=== PATIENT | female | born 1945 | race Caucasian/White ===

== ENCOUNTER 2019-02-10 01:13 | Inpatient (IN) | payer MEDICARE, MEDICAID ==
[~2019-02-10] VITALS: Ht 157.5 cm; Wt 63.5 kg
[2019-02-10] VITALS (9 sets, daily range): BP systolic 102–141; BP diastolic 48–74
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
--- NOTE | 2019-02-10 02:15 | NUR ---
ED Nurse Note: MANY ATTEMPTS MADE FOR PT IV LINE AND LABS, UN-SUCCESSFUL DUE TO CONTRACTED AND EX-IV DRUG USER PER PT, DEBBIE CHARGE NURSE ATTEMPTED UN-SUCCESSFULLY ALSO, IS AWARE AND WILL START CENTRAL LINE, ALSO AWARE OF LABS NOT DONE YET, PT IN BED RESTING QUIETLY, PT IS CRYING INTERMITTENTLY, WILL CONTINUE TO CLOSELY MONITOR.
[2019-02-10] MEDS ORDERED: oxyCODONE HCL/Acetaminophen 5/325mg ORAL ONE (02:45)
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
--- NOTE | 2019-02-10 03:40 | NUR ---
ED Nurse Note: AT BEDSIDE INSERTING CENTRAL LINE ON PT. PT GVEN ORAL PERCOCET FOR PAIN, NOT GIVEN VEFORE DUE TO PT REFUSING AND ASKING FOR SHOT, WAS INFORMED.
--- NOTE | 2019-02-10 04:09 | NUR ---
Consent for central line placement obtained without patients signature (patient grossly contracted and unable to sign).
[2019-02-10 04:18] LABS: ANION GAP 4 mmol/L (5-15); BLOOD UREA NITROGEN 13 mg/dL (7-18); CALCIUM 8.1 MG/DL (8.5-10.1); CARBON DIOXIDE 30 MMOL/L (21-32); CHLORIDE 106 MMOL/L (98-107); CREATININE 0.8 MG/DL (0.55-1.30); SODIUM 140 MMOL/L (136-145)
--- NOTE | 2019-02-10 04:20 | NUR ---
ED Nurse Note: BLOOD COLLECTED; SENT DOWN TO LAB.
--- NOTE | 2019-02-10 04:26 | NUR ---
ED Nurse Note: RT AT BEDSIDE
[2019-02-10] MEDS ORDERED: Ipratropium 0.02% Inh Soln 2.5ml UD HHN ONE (04:30)
[2019-02-10] MEDS ORDERED: Albuterol ud Inhalation HHN ONE (04:30)
[2019-02-10 04:32] LABS: ALANINE AMINOTRANSFERASE 14 U/L (12-78); ALBUMIN 2.1 G/DL (3.4-5.0); ALBUMIN/GLOBULIN RATIO 0.4 (1.0-2.7); ALKALINE PHOSPHATASE 159 U/L (46-116); ASPARTATE AMINO TRANSFERASE 29 U/L (15-37); BILIRUBIN,TOTAL 0.3 MG/DL (0.2-1.0); CREATINE KINASE 98 U/L (26-308)
--- NOTE | 2019-02-10 04:32 | NUR ---
ED Nurse Note: IMAGING AT BEDSIDE
--- NOTE | 2019-02-10 04:35 | NUR ---
ED Nurse Note: RETURNED FROM BREAK, RESUMED CARE FROM [facility], PT LABS THAT WERE DRAWN ARE CLOTTED AND NEED TO BE RE-SENT, FIRST SET DRAWN BY MD, SECOND BY NURSE AND THIRD SET DRAWN IS CLOTTED ALSO, MD IS AWARE AND ASK FOR LAB TO COME AND DRAW, PT IS IN BED AWAKE AND ALERT, STATES MEDS GIVEN FOR PAIN EFFECTIVE, PT IS CURRENTLY BEING TAKEN TO IMAGING FOR CT-SCAN, WILL RESUME CARE WHEN PT RETURNS TO DEPARTMENT.
--- NOTE | 2019-02-10 05:20 | NUR ---
ED Nurse Note: PT RETURNED FROM IMAGING, PT STRAIGHT CATH FOR URINE SAMPLE, PT TOLERATED POORLY, YELLING AND SCREAMING BECAUSE WE MOVED HER LEGS, PT STATES HAS CHRONIC LEG PAIN, SPECIMEN SENT, PT ALSO NOTED WITH THICK, WHITE DISCHARGE AND URINE WAS ALSO TENACIOUS AND BOYD COLORED, MD INFORMED IMMEDIATELY, PT ALSO CLEANED AND CHANGED, NO OPEN SORES OR PRESSURE AREAS NOTED, WILL CONTINUE TO MONITOR, MD STATES TO WAIT FOR URINE RESULTS BEFORE SENDING TO FLOOR BED, WILL CONITNUE TO MONITOR.
[2019-02-10] MEDS ORDERED: Morphine Sulfate 4mg/ml Inj (IV USE ONLY) IVP PRN (06:00)
[2019-02-10 06:01] LABS: APPEARANCE,URINE CLOUDY; BILIRUBIN, URINE NEGATIVE (NEGATIVE); GLUCOSE, URINE (UA) NEGATIVE (NEGATIVE); KETONES,URINE 1+ (NEGATIVE); LEUKOCYTE ESTERASE ,URINE 3+ (NEGATIVE); NITRITE,URINE POSITIVE (NEGATIVE); PH,URINE 7 (4.5-8.0); PROTEIN,URINE 3+ (NEGATIVE); UROBILINOGEN,URINE 4 MG/DL (0.0-1.0)
[2019-02-10 06:02] LABS: COLOR,URINE YELLOW
[2019-02-10 06:15] LABS: BASOPHILS % (AUTO) 0.8 % (0.0-2.0); EOSINOPHILS % (AUTO) 1.1 % (0.0-3.0); HEMATOCRIT 35.7 % (37.0-47.0); HEMOGLOBIN 11.2 G/DL (12.0-16.0); LYMPHOCYTES % (AUTO) 30.5 % (20.0-45.0); MEAN CORPUSCULAR VOLUME 85 FL (80-99); MONOCYTES % (AUTO) 4.3 % (1.0-10.0); NEUTROPHILS % (AUTO) 63.3 % (45.0-75.0); PLATELET COUNT 154 K/UL (150-450); RED BLOOD COUNT 4.18 M/UL (4.20-5.40); RED CELL DISTRIBUTION WIDTH 15.6 % (11.6-14.8); WHITE BLOOD COUNT 5.9 K/UL (4.8-10.8)
[2019-02-10] MEDS ORDERED: cefTRIAXone 1 GM in D5W 55 ML IVPB ONE (06:15)
--- NOTE | 2019-02-10 06:15 | NUR ---
ED Nurse Note: PT B/P REMAINS LOW, MD ORDERED IV FLUIDS, PT ALSO STARTED ON IV ANTIBOITICS, TOLERATING WELL, NO S/S OF ADVERSE REACTION NOTED, PT TO BE ADMITTED, WILL SEND TO FLOOR BED AFTER RECIEVING LACTIC ACID PER MD.
--- NOTE | 2019-02-10 07:13 | NUR ---
HAND-OFF: Report given to EVITA WAYRN PT IN BED SLEEPING, B/P INCREASING, IV FLUIDS CONTINUING, AM NURSE TO RESUME CARE, GIVE REPORT AND SEND TO FLOOR BED. NAD NOTED DURING SHIFT REPORT. .
--- NOTE | 2019-02-10 07:30 | NUR ---
ED Nurse Note: Received patient in bed sleeping. BP 67/38 without symptom. repositioned pt, and reapplied BP cuff in different arm and rechecked. it went up to 88/48 which is still lower than normal range. pt aao x3-4 but forgetful. ERMD made aware. pt is on 4L/min via NC. lower the oxygen to 2L/min and O2 sat went down to 89%. reincreased to 4L/min.
--- NOTE | 2019-02-10 07:50 | NUR ---
ED Nurse Note: Reblenchable redness noted on both buttocks and both heels.
--- NOTE | 2019-02-10 08:11 | NUR ---
ED Nurse Note: Attempted to give report. Nurse is with patient. nurse will call back.
--- NOTE | 2019-02-10 08:17 | NUR ---
ED Nurse Note: Called back to give report and CN Leah said they are trying to move pt back to Telemetry unit. they will call me back.
--- NOTE | 2019-02-10 08:20 | NUR ---
ED Nurse Note: Nurse Aurora called back to receive report. report given.
[2019-02-10] MEDS ORDERED: ACETAMINOPHEN325 M1 ORAL (08:31)
[2019-02-10] MEDS ORDERED: DOCUSATE SODIU100 MG ORAL (08:31)
[2019-02-10] MEDS ORDERED: GABAPENTIN100 MG ORAL (08:31)
[2019-02-10] MEDS ORDERED: ZOLOFT50 MG ORAL (08:31)
[2019-02-10] MEDS ORDERED: CALMOSEPTINE O3.5 G1 TP (08:31)
[2019-02-10] MEDS ORDERED: VENTOLIN HFA18 GM INH (08:31)
[2019-02-10] MEDS ORDERED: SEROPHENE50 MG PO (08:31)
--- NOTE | 2019-02-10 08:40 | NUR ---
ED Nurse Note: Patient transferred to SDU unit with 1 ER and 1 specimen technician in stable condition.
--- NOTE | 2019-02-10 08:45 | NUR ---
NURSE NOTES: Received pt from [facility] in stable condition with no cardiopulmonary distress noted. Pt is awake, AAO x4, on 2L O2 via NC. Pt has a RIJ TLC central line. Skin alterations are noted. Pt has a 1'' forehead laceration closed (w/medical glue) in ER with no signs of bleeding. Pt noted to be incontinent, nicolas pad changed and pt hooked to monitoring tech- currently SR. VS as follows: BP 141/73 HR 65 RR 12 SaO2 96% and T 97.0 F oral. Bed is in lowest position with alarm on and side rails up x 3, yellow socks on, call light within reach. Fall precaution initiated and room is close to nursing station. Pt is wearing a alexandre-colored ring and would like to keep in on (belonging noted in chart). Explained to pt importance of using call light for assistance to prevent falls. Will continue to monitor pt. Addendum: 02/10/19 at 1531 by Sera Whatley RN Late entry: Pt transported from ER via hospital bed and O2 tank.
--- NOTE | 2019-02-10 09:50 | Consultation ---
History of Present Illness General Date patient seen: February 10, 2019 Present Illness Allergies: Coded Allergies: No Known Allergies (Unverified , 02/10/19) Medication History Scheduled Albuterol Sulfate (Ventolin Hfa), 2 PUFFS INH EVERY 6 HOURS, (Reported) Docusate Sodium* (Docusate Sodium*), 100 MG ORAL ONCE, (Reported) Gabapentin* (Gabapentin*), 100 MG ORAL THREE TIMES A DAY, (Reported) Sertraline Hcl* (Zoloft*), 50 MG ORAL DAILY, (Reported) Scheduled PRN Acetaminophen* (Acetaminophen 325MG Tablet*), 650 MG ORAL Q6H PRN for Pain Scale (3-5), (Reported) Miscellaneous Medications Clomiphene Citrate (Serophene), 12.5 MG PO, (Reported) Menthol/Zinc Oxide (Calmoseptine Ointment), 3.5 GM TP, (Reported) Patient History Healthcare decision maker Resuscitation status Advanced Directive on File Physical Exam Last 24 Hour Vital Signs Date Time Temp Pulse Resp B/P (MAP) Pulse Ox O2 Delivery O2 Flow Rate FiO2 02/10/19 08:50 98.2 67 14 104/71 96 Nasal Cannula 4.0 02/10/19 08:50 98.1 67 12 104/71 97 Nasal Cannula 4.0 21 02/10/19 08:12 62 12 Nasal Cannula 4.0 02/10/19 08:12 98.1 62 12 107/62 97 Nasal Cannula 4.0 02/10/19 07:36 98.6 02/10/19 05:35 98.6 78 14 104/67 95 Room Air 21 02/10/19 04:47 72 14 97 Room Air 21 02/10/19 04:27 62 13 91 Room Air 21 02/10/19 04:26 62 13 Room Air 21 02/10/19 04:20 98.6 02/10/19 04:00 98.6 73 16 119/74 95 Room Air 02/10/19 03:00 98.6 78 16 121/65 96 Room Air 02/10/19 01:30 68 18 Room Air 02/10/19 01:14 98.6 68 18 90 Room Air Laboratory Tests Test 02/10/19 03:55 02/10/19 04:15 02/10/19 04:50 02/10/19 06:00 Sodium Level 140 MMOL/L (136-145) Potassium Level 4.0 MMOL/L (3.5-5.1) Chloride Level 106 MMOL/L (98-107) Carbon Dioxide Level 30 MMOL/L (21-32) Anion Gap 4 mmol/L (5-15) L Blood Urea Nitrogen 13 mg/dL (7-18) Creatinine 0.8 MG/DL (0.55-1.30) Estimat Glomerular Filtration Rate mL/min (>60) Glucose Level 102 MG/DL (74-106) Calcium Level 8.1 MG/DL (8.5-10.1) L Total Bilirubin 0.3 MG/DL (0.2-1.0) Aspartate Amino Transf (AST/SGOT) 29 U/L (15-37) Alanine Aminotransferase (ALT/SGPT) 14 U/L (12-78) Alkaline Phosphatase 159 U/L (46-116) H Total Creatine Kinase 98 U/L (26-308) Troponin I 0.007 ng/mL (0.000-0.056) Pro-B-Type Natriuretic Peptide 673 pg/mL (0-125) H Total Protein 7.2 G/DL (6.4-8.2) Albumin 2.1 G/DL (3.4-5.0) L Globulin 5.1 g/dL Albumin/Globulin Ratio 0.4 (1.0-2.7) L Prothrombin Time 11.0 SEC (9.30-11.50) Prothromb Time International Ratio 1.0 (0.9-1.1) Activated Partial Thromboplast Time 21 SEC (23-33) L Urine Color Yellow Urine Appearance Cloudy Urine pH 7 (4.5-8.0) Urine Specific [place] 1.010 (1.005-1.035) Urine Protein 3+ (NEGATIVE) H Urine Glucose (UA) Negative (NEGATIVE) Urine Ketones 1+ (NEGATIVE) H Urine Blood 5+ (NEGATIVE) H Urine Nitrite Positive (NEGATIVE) H Urine Bilirubin Negative (NEGATIVE) Urine Urobilinogen 4 MG/DL (0.0-1.0) H Urine Leukocyte Esterase 3+ (NEGATIVE) H Urine RBC 20-30 /HPF (0 - 2) H Urine WBC Tntc /HPF (0 - 2) H Urine Squamous Epithelial Cells Moderate /LPF (NONE/OCC) H Urine Bacteria Many /HPF (NONE) H Urine Opiates Screen Negative (NEGATIVE) Urine Barbiturates Screen Negative (NEGATIVE) Phencyclidine (PCP) Screen Negative (NEGATIVE) Urine Amphetamines Screen Negative (NEGATIVE) Urine Benzodiazepines Screen Negative (NEGATIVE) Urine Cocaine Screen Negative (NEGATIVE) Urine Marijuana (THC) Screen Negative (NEGATIVE) White Blood Count 5.9 K/UL (4.8-10.8) Red Blood Count 4.18 M/UL (4.20-5.40) L Hemoglobin 11.2 G/DL (12.0-16.0) L Hematocrit 35.7 % (37.0-47.0) L Mean Corpuscular Volume 85 FL (80-99) Mean Corpuscular Hemoglobin 26.9 PG (27.0-31.0) L Mean Corpuscular Hemoglobin Concent 31.5 G/DL (32.0-36.0) L Red Cell Distribution Width 15.6 % (11.6-14.8) H Platelet Count 154 K/UL (150-450) Mean Platelet Volume 6.9 FL (6.5-10.1) Neutrophils (%) (Auto) 63.3 % (45.0-75.0) Lymphocytes (%) (Auto) 30.5 % (20.0-45.0) Monocytes (%) (Auto) 4.3 % (1.0-10.0) Eosinophils (%) (Auto) 1.1 % (0.0-3.0) Basophils (%) (Auto) 0.8 % (0.0-2.0) Test 02/10/19 06:20 Lactic Acid Level 1.70 mmol/L (0.4-2.0) Microbiology Date/Time Source Procedure Growth Status 02/10/19 05:45 Rectum Received Height (Feet): 5 Height (Inches): 2.00 Weight (Pounds): 140 Medications Current Medications Medications (Trade) Dose Ordered Sig/Yogesh Route PRN Reason Start Time Stop Time Status Last Admin Dose Admin Morphine Sulfate (Morphine Sulfate) 4 mg Q4H PRN IVP For Pain 02/10/19 06:00 02/17/19 05:59 02/10/19 06:13 Sodium Chloride 1,000 ml @ 150 mls/hr Q6H40M IV 02/10/19 06:00 03/12/19 05:59 02/10/19 07:38 Assessment/Plan Assessment/Plan: (1) H/o CVA (2) Thalamic pain syndrome (3) S/p fall head contusion (4) Neck and back pain r/o fracture (5) H/O Heroin abuse seen dictated Kamari Nunez February 10, 2019 09:50
[2019-02-10] MEDS ORDERED: Morphine Sulfate 2mg/ml Inj(IV/IM USE ONLY) IVP PRN (10:00)
--- NOTE | 2019-02-10 10:48 | Diagnostic Imaging Report ---
Indication: Altered level of consciousness Technique: Contiguous 5 mm thick transaxial imaging of the head obtained in a Siemens Sensation [address] scanner. Soft tissue and bone windows generated. Automatic Exposure Control was utilized. Total Dose length Product (DLP): 1389.[address] Dose Index Volume (CTDIvol): 70.38 mGy Comparison: none Findings: There is mild prominence of the ventricles, basal cisterns, and cerebral sulci consistent with atrophy. Mild, nonspecific, white matter hypoattenuation is noted throughout the brain consistent with chronic small vessel disease. There is no midline shift, edema, acute hemorrhage, mass effect, or abnormal extra-axial fluid collections. There is scalp swelling over the left parietal region. Impression: No acute intracranial bleed, mass effect or edema. Mild atrophy of the brain. Nonspecific white matter hypoattenuation probably due to chronic small vessel disease. Left parietal scalp contusion [facility] has communicated the preliminary results to the Emergency Department. Their findings are largely concordant with this report. The CT scanner at [facility] is accredited by the [employer] and the scans are performed using dose optimization techniques as appropriate to a performed exam including Automatic Exposure control.
[2019-02-10] MEDS ORDERED: SEROQUEL50 MG ORAL (11:36)
[2019-02-10] MEDS ORDERED: PEPCID AC20 M2 PO (11:36)
[2019-02-10] MEDS ORDERED: MULTIVITAMINS1 EAC2 ORAL (11:36)
[2019-02-10] MEDS ORDERED: BISACODYL10 M1 RC (11:36)
[2019-02-10] MEDS ORDERED: SERTRALINE HCL25 MG ORAL (11:36)
--- NOTE | 2019-02-10 11:43 | Diagnostic Imaging Report ---
Indication: Dyspnea Comparison: None A single view chest radiograph was obtained. Findings: Some interstitial opacities noted within the lungs. Heart size is normal. Bones are osteopenic. Cervical fusion hardware noted. IMPRESSION: No acute findings. Some prominence of pulmonary interstitium nonspecific
--- NOTE | 2019-02-10 12:22 | Diagnostic Imaging Report ---
Indication: Line placement Comparison: 02/10/2019 A single view chest radiograph was obtained. Findings: There is a right jugular line. The tip is projected over the SVC. The lungs are clear. Heart size is normal. Bones are slightly osteopenic. Patient's hand projects over the left lower chest obscuring underlying detail. IMPRESSION: Some limitations on this exam. Right jugular line in good position. No pneumothorax
--- NOTE | 2019-02-10 12:27 | Cardiac Electrophysiology PN ---
Subjective Subjective [id number] Objective Last 24 Hour Vital Signs Date Time Temp Pulse Resp B/P (MAP) Pulse Ox O2 Delivery O2 Flow Rate FiO2 02/10/19 08:50 98.2 67 14 104/71 96 Nasal Cannula 4.0 02/10/19 08:50 98.1 67 12 104/71 97 Nasal Cannula 4.0 21 02/10/19 08:45 Nasal Cannula 2.0 02/10/19 08:45 97.0 65 141/73 (95) 02/10/19 08:12 62 12 Nasal Cannula 4.0 02/10/19 08:12 98.1 62 12 107/62 97 Nasal Cannula 4.0 02/10/19 08:00 59 02/10/19 07:36 98.6 02/10/19 05:35 98.6 78 14 104/67 95 Room Air 21 02/10/19 04:47 72 14 97 Room Air 21 02/10/19 04:27 62 13 91 Room Air 21 02/10/19 04:26 62 13 Room Air 21 02/10/19 04:20 98.6 02/10/19 04:00 98.6 73 16 119/74 95 Room Air 02/10/19 03:00 98.6 78 16 121/65 96 Room Air 02/10/19 01:30 68 18 Room Air 02/10/19 01:14 98.6 68 18 90 Room Air Laboratory Tests Test 02/10/19 03:55 02/10/19 04:15 02/10/19 04:50 02/10/19 06:00 Sodium Level 140 MMOL/L (136-145) Potassium Level 4.0 MMOL/L (3.5-5.1) Chloride Level 106 MMOL/L (98-107) Carbon Dioxide Level 30 MMOL/L (21-32) Anion Gap 4 mmol/L (5-15) L Blood Urea Nitrogen 13 mg/dL (7-18) Creatinine 0.8 MG/DL (0.55-1.30) Estimat Glomerular Filtration Rate mL/min (>60) Glucose Level 102 MG/DL (74-106) Calcium Level 8.1 MG/DL (8.5-10.1) L Total Bilirubin 0.3 MG/DL (0.2-1.0) Aspartate Amino Transf (AST/SGOT) 29 U/L (15-37) Alanine Aminotransferase (ALT/SGPT) 14 U/L (12-78) Alkaline Phosphatase 159 U/L (46-116) H Total Creatine Kinase 98 U/L (26-308) Troponin I 0.007 ng/mL (0.000-0.056) Pro-B-Type Natriuretic Peptide 673 pg/mL (0-125) H Total Protein 7.2 G/DL (6.4-8.2) Albumin 2.1 G/DL (3.4-5.0) L Globulin 5.1 g/dL Albumin/Globulin Ratio 0.4 (1.0-2.7) L Prothrombin Time 11.0 SEC (9.30-11.50) Prothromb Time International Ratio 1.0 (0.9-1.1) Activated Partial Thromboplast Time 21 SEC (23-33) L Urine Color Yellow Urine Appearance Cloudy Urine pH 7 (4.5-8.0) Urine Specific [place] 1.010 (1.005-1.035) Urine Protein 3+ (NEGATIVE) H Urine Glucose (UA) Negative (NEGATIVE) Urine Ketones 1+ (NEGATIVE) H Urine Blood 5+ (NEGATIVE) H Urine Nitrite Positive (NEGATIVE) H Urine Bilirubin Negative (NEGATIVE) Urine Urobilinogen 4 MG/DL (0.0-1.0) H Urine Leukocyte Esterase 3+ (NEGATIVE) H Urine RBC 20-30 /HPF (0 - 2) H Urine WBC Tntc /HPF (0 - 2) H Urine Squamous Epithelial Cells Moderate /LPF (NONE/OCC) H Urine Bacteria Many /HPF (NONE) H Urine Opiates Screen Negative (NEGATIVE) Urine Barbiturates Screen Negative (NEGATIVE) Phencyclidine (PCP) Screen Negative (NEGATIVE) Urine Amphetamines Screen Negative (NEGATIVE) Urine Benzodiazepines Screen Negative (NEGATIVE) Urine Cocaine Screen Negative (NEGATIVE) Urine Marijuana (THC) Screen Negative (NEGATIVE) White Blood Count 5.9 K/UL (4.8-10.8) Red Blood Count 4.18 M/UL (4.20-5.40) L Hemoglobin 11.2 G/DL (12.0-16.0) L Hematocrit 35.7 % (37.0-47.0) L Mean Corpuscular Volume 85 FL (80-99) Mean Corpuscular Hemoglobin 26.9 PG (27.0-31.0) L Mean Corpuscular Hemoglobin Concent 31.5 G/DL (32.0-36.0) L Red Cell Distribution Width 15.6 % (11.6-14.8) H Platelet Count 154 K/UL (150-450) Mean Platelet Volume 6.9 FL (6.5-10.1) Neutrophils (%) (Auto) 63.3 % (45.0-75.0) Lymphocytes (%) (Auto) 30.5 % (20.0-45.0) Monocytes (%) (Auto) 4.3 % (1.0-10.0) Eosinophils (%) (Auto) 1.1 % (0.0-3.0) Basophils (%) (Auto) 0.8 % (0.0-2.0) Test 02/10/19 06:20 Lactic Acid Level 1.70 mmol/L (0.4-2.0) Microbiology Date/Time Source Procedure Growth Status 02/10/19 05:45 Rectum Received Robbie Gonzalez MD February 10, 2019 12:27
[2019-02-10] MEDS ORDERED: Nitroglycerin Subl 0.4mg tab SL PRN (12:30)
[2019-02-10] MEDS ORDERED: Albuterol/Ipratropium 3ml neb HHN PRN (12:30)
[2019-02-10] MEDS: Sertraline 50mg tab ORAL SCH (13:05)
--- NOTE | 2019-02-10 13:36 | NUR ---
GROUNDS MAINTENANCE MANAGERPEOPLE GREETER 73 Y/O FEMALE [facility] [place] [place] CC;MULTIPLE TRAUMA/FALL SI:SYNCOPE VS: BP 105/63, P 68, T 98.6, RR 18, SpO2 90 RBC 4.18, H&H 11.2/35.7, URINE: BATERIA- MANY, BLOOD 5+, PROTEIN 3+, NITRITE- POSITIVE HEAD CT: Left parietal scalp contusion IS:ATROVENT 500mcg OXYCODONE 1tab PROVENTIL 5mg NS 50ml IV ZOFRAN 4mg IVP MORPHINE SULFATE 4mg IVP CEFTRIAXONE 55ml IVPB ADMITTED TO SDU DCP: RETURN TO [facility] [place] [place]
--- NOTE | 2019-02-10 14:08 | Diagnostic Imaging Report ---
Indication: left shoulder pain Findings: 3 views of the left shoulder were obtained. Alignment of the left shoulder is normal. No acute fracture is identified. Bones are osteopenic. Soft tissues are unremarkable. Impression: No acute injury
[2019-02-10] MEDS: Aspirin Baby 81mg ORAL SCH (14:15)
[2019-02-10 14:44] LABS: CHOLESTEROL 173 MG/DL (< 200); HDL CHOLESTEROL 41 MG/DL (40-60); TRIGLYCERIDES 140 MG/DL (30-150)
--- NOTE | 2019-02-10 15:24 | NUR ---
NURSE NOTES: Report received from ROSANNA Zamora. Received patient in bed. Patient is alert and oriented x 3 with verbally responsive. Denies pain at this time. Belonging checked with RN. Skin assessment done. On 2L of oxygen via N/C with no distress noted. IV site intact and patent. Bed in lowest position. Call light within reach. Will continue to monitor.
--- NOTE | 2019-02-10 15:24 | NUR ---
TRANSFER TO FLOOR: Patient transferred to [facility] in stable condition via hospital bed and O2 tank. Report given to ROSANNA Palmer. Belongings remain with pt.
--- NOTE | 2019-02-10 16:42 | NUR ---
NURSE NOTES: Unable to perform Carotid duplex at this time due to central line on right neck. FAUSTO Manzo informed about it with no new order at this time.
--- NOTE | 2019-02-10 19:27 | NUR ---
NURSE NOTES: Patient refused MRI of brain. Called and left message to FAUSTO Manzo that pt. was not able to tolerate the procedure and refused it. Awaiting for call back. Will endorse to next shift nurse.
--- NOTE | 2019-02-10 19:30 | NUR ---
HAND-OFF: Report given to ROSANNA Riggs. Stable condition.
--- NOTE | 2019-02-10 19:40 | NUR ---
NURSE NOTES: Received Pt is resting on the bed and awake and alert. on Tele monitor with SR and HR 60's. Denied pain at this time. Pt has Rt. IJ TLC and dressing is clean and dry. On running with N/S @ 150/cc/hr. Pt refused to take MRI barin and notified to FAUSTO Manzo by previous nurse. Placed fall precaution. Will continue to monitor any change of condition.
[2019-02-10] MEDS: Dyna-Hex 2% Top Sol 2oz TOPIC SCH (19:59)
--- NOTE | 2019-02-10 20:00 | Consultation ---
DATE OF CONSULTATION: 02/10/2019 PAIN MANAGEMENT CONSULTATION CONSULTING PHYSICIAN: Antonio Castro M.D. REFERRING PHYSICIAN: Geoffrey Whyte M.D. PHYSICIAN MOBILE LOUNGE DRIVER: Rajan Gutierrez CHIEF COMPLAINT: Generalized body pain. HISTORY OF PRESENT ILLNESS: The patient is a 73-year-old female who is being seen on the [facility] for initial pain management consultation. The patient was admitted under the care of Dr. Whyte, status post fall in the residential facility where she has a left side forehead laceration with contusion, history of stroke with hemiplegia causing contractures throughout her body. At this time, the patient is in the bed, no signs of pain or distress. Reports that she has no complaints of pain; however, when assessing the patient, upon palpation has tenderness to the cervical, thoracic, and lumbar spine. No tenderness to the ribs, joints, or extremities however again has severe contractures throughout her body, which was prior to the fall. The patient in the nursing facility was receiving methadone 10 mg every 8 hours and Neurontin 100 mg three times a day, which was being prescribed by Dr. Héctor Dodge. At this time, the patient was admitted to the hospital, was given one dose of Percocet in the ER and then was started on morphine 4 mg IV every four hours as needed for severe pain here by the force, received one dose earlier this morning. At this time, we were consulted so the patient would have adequate pain control while here in the hospital. PAST MEDICAL HISTORY: CVA, right-sided hemiplegia, multiple contractures, hypertension, COPD, hepatitis C, cirrhosis. PAST SURGICAL HISTORY: Denies. SOCIAL HISTORY: The patient has history of heroin abuse. ALLERGIES: No known drug allergies. MEDICATIONS: Methadone, Neurontin, albuterol, docusate, Zoloft REVIEW OF SYSTEMS: Denies rash, fever, chills, sweating, dizziness, drowsiness, blurred vision, sore throat, change in hearing or weight. No nausea, vomiting, diarrhea, or blood in the stool or urine. No bowel incontinence. He is complaining of generalized body pain. PHYSICAL EXAMINATION: GENERAL: Alert, awake, and oriented x3. VITAL SIGNS: Blood pressure 104/71, heart rate is 67, oxygen saturation 96%, respiratory rate 14, temperature 98.2 degrees Fahrenheit. HEENT: PERRLA. NECK: Range of motion is decreased due to the patient's condition with tenderness to paracervical muscles. No adenopathy. LUNGS: Decreased breath sounds bilaterally. HEART: S1 and S2 regular. ABDOMEN: obese. BACK: Range of motion is decreased in flexion and extension with tenderness to paraspinals, trapezius and rhomboid muscles. EXTREMITIES: Upper and lower extremity range of motion is decreased due to the patient's condition. No cyanosis. No clubbing. Sensory is reduced. Reflexes are unobtainable. No adenopathy with multiple joint contractures noted. ASSESSMENT AND PLAN: This is a 73-year-old female with history of CVA, thalamic pain syndrome, status post fall, head contusion, neck and back pain, rule out fracture, history of heroine abuse. The patient will be reduced to morphine 2 mg IV every 6 hours as needed for severe pain, started on methadone 10 mg tablet three times a day as she was taking in the nursing facility with gabapentin 100 mg three times a day. The patient was discussed with Dr. Castro, and Dr. Castro concurred. We will follow the patient. Thank you very much for the courtesy of this consultation. Antonio Castro M.D. ADOLFO Gutierrez DR: Geni JOB#: [id number] CC: TARA
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
[2019-02-11] VITALS (7 sets, daily range): BP systolic 99–135; BP diastolic 58–76
--- NOTE | 2019-02-11 04:27 | NUR ---
HAND-OFF: Report given to ROSANNA Carreon. Pt is sleeping on the bed and sign of acute distress noted.
--- NOTE | 2019-02-11 07:37 | NUR ---
HAND-OFF: Report given to Alesia MARTE. Patient in bed, bed in low position, locked, call light within reach. Patient in stable condition, plan of care endorsed.
--- NOTE | 2019-02-11 07:38 | NUR ---
NURSE NOTES: Received report from ROSANNA Carreon. Patient is resting in bed, in stable condition. No signs and symptoms of acute distress noted at this time. Breathing unlabored in 2 liter Nasal Cannula. IV running at RX dose. Bed in lowest position with two side rails up, break engaged. Bed alarm on. Bed side table and call light within reach. Will follow plan of care.
--- NOTE | 2019-02-11 07:58 | Diagnostic Imaging Report ---
APPROVED REPORT CPT Code: 64882 Present Symptoms Comments: BILATERAL LEGS PAIN. BILATERAL: Imaging reveals a patent deep venous system bilaterally. There is no evidence of thrombus within the femoral, popliteal or tibial segments. The greater saphenous veins are also within normal limits. Doppler indicates normal spontaneous flow within these segments.
[2019-02-11] MEDS: Aspirin Baby 81mg ORAL SCH (08:11)
[2019-02-11] MEDS: Sertraline 50mg tab ORAL SCH (08:12)
[2019-02-11] MEDS: Calmoseptine Oint 4oz TOPIC SCH (08:12)
[2019-02-11] MEDS ORDERED: Docusate 100mg cap ORAL SCH (09:00)
--- NOTE | 2019-02-11 11:15 | History and Physical Report ---
DATE OF ADMISSION: 02/10/2019 HISTORY OF PRESENT ILLNESS: The [facility] is [facility], rule out syncope. The patient has a bump and a cut on her forehead. The patient has a history of COPD and also has . She is admitted to the telemetry floor. She is status post fall, comes in for possible syncopal workup. The patient is also contracted and complains of left shoulder pain and leg pain. PAST MEDICAL HISTORY: Significant for COPD, history of GERD, history of chronic pain syndrome, history of constipation, psychosis, depression. PAST SURGICAL HISTORY: D and C, has contractures. SOCIAL HISTORY: She has a history of smoking, history of drug abuse. ALLERGIES: No known allergies. MEDICATIONS: Pepcid, Colace, Bisacodyl, albuterol, multivitamin, Seroquel, and sertraline. FAMILY HISTORY: Noncontributory. REVIEW OF SYSTEMS: HEENT: Denies headaches. RESPIRATORY: shortness of breath. Denies cough. orthopnea. GASTROINTESTINAL: Denies nausea, vomiting, diarrhea. EXTREMITIES: Left shoulder pain as well as . CENTRAL NERVOUS SYSTEM: Reports possible syncope with fall. PHYSICAL EXAMINATION: VITAL SIGNS: Temperature 97.8, pulse is 69, blood pressure 117/80. HEENT: PERRLA. The patient has a cut on the right eyebrow. CHEST: Clear to auscultation. CARDIOVASCULAR: Regular rate and rhythm. ABDOMEN: Soft, nontender, nondistended. No organomegaly. EXTREMITIES: A 2+ pitting edema in the lower extremities. NEUROLOGIC: Generalized weakness. Decreased range of motion due to pain in the left shoulder and also has contractures. For skin integrity, please refer to the nursing notes. LABORATORY WORK: WBC of 5.9, hemoglobin 11.2, platelets 154. Sodium 140, potassium 4, chloride 106, BUN of 13, creatinine 0.8, glucose of 102. BNP of 673. Troponin 0.007. ASSESSMENT AND PLAN: Fall, rule out syncope, status post fall, bump on the forehead, head trauma, history of COPD, upper arm weakness. I have asked , Dr. Ortega, to see the patient for the above-mentioned diagnoses as well as for the treatment. Geoffrey Whyte M.D. DR: ROBERTO JOB#: [id number] CC:
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
[2019-02-11] MEDS: Docusate 100mg cap ORAL SCH ×2 (13:49→17:33)
[2019-02-11] MEDS: cefTRIAXone 1 GM in D5W 55 ML IVPB SCH (13:54)
--- NOTE | 2019-02-11 15:33 | Cardiac Electrophysiology PN ---
Assessment/Plan Assessment/Plan 1. Syncope, etiology is not clear at this time. Ruled out for myocardial infarction. Echocardiogram EF 60% 2. History of heroin use and chronic pain syndrome. On Morphine, methadone, and Neurontin per Pain Management. 3. History of hepatitis C and cirrhosis. Subjective Subjective Refused MRI brain. No CP or SOB Objective Last 24 Hour Vital Signs Date Time Temp Pulse Resp B/P (MAP) Pulse Ox O2 Delivery O2 Flow Rate FiO2 02/11/19 09:05 63 02/11/19 09:00 58 56 02/11/19 08:00 97.7 65 20 107/58 (74) 96 02/11/19 08:00 Nasal Cannula 2.0 02/11/19 08:00 57 02/11/19 07:29 Nasal Cannula 2.0 28 02/11/19 07:29 60 16 Nasal Cannula 2.0 28 02/11/19 07:29 98 Nasal Cannula 2.0 28 02/11/19 04:00 Nasal Cannula 2.0 02/11/19 04:00 59 02/11/19 04:00 98.1 58 16 105/64 (78) 97 02/11/19 00:39 Nasal Cannula 2.0 02/11/19 00:05 57 02/11/19 00:00 60 02/11/19 00:00 97.9 57 18 109/67 (81) 96 02/11/19 00:00 56 02/10/19 20:59 64 16 Nasal Cannula 2.0 28 02/10/19 20:58 Nasal Cannula 2.0 28 02/10/19 20:57 97 Nasal Cannula 2.0 02/10/19 20:00 97.5 60 18 102/57 (72) 96 02/10/19 20:00 Nasal Cannula 2.0 02/10/19 20:00 64 02/10/19 16:00 2.0 02/10/19 16:00 97.8 69 117/48 (71) 02/10/19 16:00 50 02/10/19 15:47 Nasal Cannula 2.0 Intake and Output 02/10/19 02/11/19 18:59 06:59 Intake Total 1600 ml 1680 ml Balance 1600 ml 1680 ml Intake Oral 250 ml IV Total 1350 ml 1680 ml # Voids 3 4 # Bowel Movements 2 Laboratory Tests Test 02/11/19 03:45 Troponin I 0.019 ng/mL (0.000-0.056) Microbiology Date/Time Source Procedure Growth Status 02/10/19 04:50 Urine,Clean Catch Urine Culture - Preliminary Gram Negative Shoaib Resulted 02/10/19 05:45 Rectum Received Objective HEAD AND NECK: Shows no jugular venous distention. LUNGS: Clear. CARDIOVASCULAR: Shows regular S1 and S2 with no gallop or murmur. ABDOMEN: Soft. EXTREMITIES: No pitting edema. Robbie Gonzalez MD February 11, 2019 15:33
--- NOTE | 2019-02-11 18:07 | Neurology Progress Note ---
Interim History Interim History ROS Limited/Unobtainable: No Complaints: Head Injury/ Fall Events: Alert and oriented Interim History This visit was performed on February 11, [address] Abdelrahman Altamirano. Review of Systems All Systems: reviewed and negative except above Objective Physical Exam Last Vital Signs Date Time Temp Pulse Resp B/P (MAP) Pulse Ox O2 Delivery O2 Flow Rate FiO2 02/11/19 16:00 97.7 58 20 99/69 (79) 97 02/11/19 16:00 Nasal Cannula 2.0 02/11/19 07:29 28 Laboratory Tests Test 02/11/19 03:45 Troponin I 0.019 ng/mL (0.000-0.056) General: well developed, other - thin Head: normocophalic Neck: no rigidity EENT: benign Neurologic Exam Mental Status: awake, alert, oriented x4, normal cognition Speech: normal speech Language: normal language Cranial Nerve II: fundus normal, visual aguirre, no papilledema Cranial Nerves III, IV, : PERRLA, EOMI Cranial Nerve V: normal facial sensations Cranial Nerve VIII: normal hearing Cranial Nerve IX: normal palate elevation Cranial Nerve X: no voice hoarseness Cranial Nerve XI: SCM symmetric, trapezii function normal Cranial Nerve XII: tongue midline, no tongue atrophy/fasciculations Motor System: other Impression/Recommendations Problems: (1) COPD (chronic obstructive pulmonary disease) (2) Head trauma (3) UTI (urinary tract infection) (4) Upper extremity weakness (5) Dehydration (6) Eyebrow laceration (7) Anemia (8) Iron (Fe) deficiency anemia (9) Folate deficiency Status: stable Diagnostic Impression Exam improved- previously drowsy and now alert/ oriented Continue Q4 Hour neuro obs Patient refusing MRI Brain at this time. Maintain Na 135-145 HgB> 8 Correct deficiencies - iron , folate etc PT eval for D/C planning SBP<140 No changes to Gabapentin dose at this time. Recommendations Correct / Replete Lytes Recheck Ammonia only if decline in MS or neuro exam. Svetlana Manzo N.P. February 11, 2019 18:07
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
--- NOTE | 2019-02-11 18:20 | NUR ---
CASE MANAGEMENT: REVIEW SI: SYNCOPE . HX HEP C & CIRRHOSIS T 97.7 HR 54 RR 18 BP 100/58 SAT 98% NC/2L AMMONIA 39 IS: CEFTRIAXONE IV Q24HR NITRO SQ PRN TELEMETRY UNIT STATUS DCP: PATIENT IS FROM [facility]
[2019-02-11] MEDS ORDERED: METHADONE HCL10 MG ORAL (19:12)
--- NOTE | 2019-02-11 19:20 | NUR ---
HAND-OFF: Report given to ROSANNA Mckeon.
[2019-02-11] MEDS ORDERED: ALBUTEROL2.5 MG/3 M INH (19:41)
[2019-02-11] MEDS ORDERED: NITROSTAT0.4 M1 SL (19:41)
[2019-02-11] MEDS: Dyna-Hex 2% Top Sol 2oz TOPIC SCH (20:44)
--- NOTE | 2019-02-11 21:08 | General Progress Note ---
Assessment/Plan Problem List: (1) Syncope ICD Codes: R55 - Syncope and collapse SNOMED: 618455743 (2) Head trauma ICD Codes: S09.90XA - Unspecified injury of head, initial encounter SNOMED: 82389633 Qualifiers: Qualified Codes: S09.90XA - Unspecified injury of head, initial encounter (3) UTI (urinary tract infection) ICD Codes: N39.0 - Urinary tract infection, site not specified SNOMED: 25585647 Qualifiers: Qualified Codes: N39.0 - Urinary tract infection, site not specified (4) Upper extremity weakness ICD Codes: R29.898 - Other symptoms and signs involving the musculoskeletal system SNOMED: 685478009 (5) Eyebrow laceration ICD Codes: S01.119A - Laceration without foreign body of unspecified eyelid and periocular area, initial encounter SNOMED: 978158836 Qualifiers: Qualified Codes: S01.112A - Laceration without foreign body of left eyelid and periocular area, initial encounter Status: progressing Assessment/Plan: uti improving head trauma afebrile vitals stable reviewed chart and labs Subjective ROS Limited/Unobtainable: Yes Allergies: Coded Allergies: No Known Allergies (Unverified , 02/10/19) Objective Last 24 Hour Vital Signs Date Time Temp Pulse Resp B/P (MAP) Pulse Ox O2 Delivery O2 Flow Rate FiO2 02/11/19 16:00 97.7 58 20 99/69 (79) 97 02/11/19 16:00 Nasal Cannula 2.0 02/11/19 16:00 59 02/11/19 12:00 Nasal Cannula 2.0 02/11/19 12:00 97.7 54 18 100/58 (72) 98 02/11/19 12:00 52 02/11/19 09:05 63 02/11/19 09:00 58 56 02/11/19 08:00 97.7 65 20 107/58 (74) 96 02/11/19 08:00 Nasal Cannula 2.0 02/11/19 08:00 57 02/11/19 07:29 Nasal Cannula 2.0 28 02/11/19 07:29 60 16 Nasal Cannula 2.0 28 02/11/19 07:29 98 Nasal Cannula 2.0 28 02/11/19 04:00 Nasal Cannula 2.0 02/11/19 04:00 59 02/11/19 04:00 98.1 58 16 105/64 (78) 97 02/11/19 00:39 Nasal Cannula 2.0 02/11/19 00:05 57 02/11/19 00:00 60 02/11/19 00:00 97.9 57 18 109/67 (81) 96 02/11/19 00:00 56 Intake and Output 02/10/19 02/11/19 19:00 07:00 Intake Total 1600 ml 1680 ml Balance 1600 ml 1680 ml Intake Oral 250 ml IV Total 1350 ml 1680 ml # Voids 3 4 # Bowel Movements 2 Laboratory Tests 02/11/19 03:45: Troponin I 0.019 Height (Feet): 5 Height (Inches): 2.00 Weight (Pounds): 140 Neck: supple Cardiovascular: normal rate Respiratory/Chest: lungs clear Abdomen: soft Geoffrey Whyte MD February 11, 2019 21:08
[2019-02-12] VITALS: BP 118/57
--- NOTE | 2019-02-12 02:41 | NUR ---
NURSE NOTES: Patient in bed asleep with no S/S of distress noted at this time. Will continue to monitor.
[2019-02-12 04:00] VITALS: BP 124/67
--- NOTE | 2019-02-12 05:45 | NUR ---
NURSE NOTES: [employer] called to notify of positive result for VRE rectum. primary nurse, Bev Davis RN, notified.
--- NOTE | 2019-02-12 07:27 | NUR ---
HAND-OFF: Report given to Bev David Patient in bed AAO X3 with no complaint of any acute pain at this time. Endorsed plan of care.
[2019-02-12 08:00] VITALS: BP 118/59
--- NOTE | 2019-02-12 08:08 | NUR ---
NURSE NOTES: received report from Mike MARTE. Pt awake and having breakfast. Pt on athletic monitor no signs of distress at this time. Bed in lowest position bed is locked. call light within reach. Will continue to follow plan of care.
[2019-02-12] MEDS: Aspirin Baby 81mg ORAL SCH (09:48)
[2019-02-12] MEDS: Docusate 100mg cap ORAL SCH ×3 (09:48→18:19)
[2019-02-12] MEDS: Sertraline 50mg tab ORAL SCH (09:49)
[2019-02-12] MEDS: Calmoseptine Oint 4oz TOPIC SCH (10:12)
[2019-02-12 10:35] LABS: BASOPHILS % (AUTO) 0.8 % (0.0-2.0); EOSINOPHILS % (AUTO) 3.8 % (0.0-3.0); HEMATOCRIT 31.8 % (37.0-47.0); LYMPHOCYTES % (AUTO) 24.5 % (20.0-45.0); MEAN CORPUSCULAR VOLUME 86 FL (80-99); MONOCYTES % (AUTO) 4.5 % (1.0-10.0); NEUTROPHILS % (AUTO) 66.5 % (45.0-75.0); PLATELET COUNT 122 K/UL (150-450); RED BLOOD COUNT 3.68 M/UL (4.20-5.40); RED CELL DISTRIBUTION WIDTH 15.8 % (11.6-14.8)
[2019-02-12 10:45] LABS: AMMONIA 49 umol/L (11-32)
[2019-02-12 11:02] LABS: ALANINE AMINOTRANSFERASE 15 U/L (12-78); ALBUMIN 1.7 G/DL (3.4-5.0); ALBUMIN/GLOBULIN RATIO 0.4 (1.0-2.7); ALKALINE PHOSPHATASE 121 U/L (46-116); ANION GAP 4 mmol/L (5-15); ASPARTATE AMINO TRANSFERASE 25 U/L (15-37); BILIRUBIN,TOTAL 0.3 MG/DL (0.2-1.0); BLOOD UREA NITROGEN 9 mg/dL (7-18); CALCIUM 7.8 MG/DL (8.5-10.1); CARBON DIOXIDE 28 MMOL/L (21-32); CHLORIDE 110 MMOL/L (98-107); CREATININE 0.8 MG/DL (0.55-1.30); FERRITIN 158 NG/ML (8-388); GAMMA GLUTAMYL TRANSPEPTIDASE 42 U/L (5-85); PHOSPHORUS 2.8 MG/DL (2.5-4.9); POTASSIUM 2.9 MMOL/L (3.5-5.1); SODIUM 142 MMOL/L (136-145)
[2019-02-12 11:17] LABS: % IRON SATURATION 18 % (15-50); IRON 26 ug/dL (50-175); TOTAL IRON BINDING CAPACITY 141 ug/dL (250-450)
[2019-02-12 12:00] VITALS: BP 104/59
--- NOTE | 2019-02-12 13:10 | General Progress Note ---
Assessment/Plan Assessment/Plan: (1) H/o CVA (2) Thalamic pain syndrome (3) S/p fall head contusion (4) Neck and back pain r/o fracture (5) H/O Heroin abuse Pt to be continued on Methadone and Morphine D/w Dr. Castro and he concurred. Subjective Date patient seen: February 12, 2019 Time patient seen: 12:15 - pm Constitutional: Reports: weakness HEENT: Reports: no symptoms Cardiovascular: Reports: no symptoms Respiratory: Reports: no symptoms Gastrointestinal/Abdominal: Reports: no symptoms Genitourinary: Reports: no symptoms Neurologic/Psychiatric: Reports: weakness Endocrine: Reports: no symptoms Hematologic/Lymphatic: Reports: no symptoms Allergies: Coded Allergies: No Known Allergies (Unverified , 02/10/19) Subjective Patient in bed no signs of pain or distress. Denies pain at this time. Getting the Methadone as scheduled and the Morphine as needed. Xrays pending to be performed. Objective Last 24 Hour Vital Signs Date Time Temp Pulse Resp B/P (MAP) Pulse Ox O2 Delivery O2 Flow Rate FiO2 02/12/19 08:00 97.9 58 20 118/59 (78) 98 02/12/19 04:00 Nasal Cannula 2.0 02/12/19 04:00 53 02/12/19 04:00 97.4 54 17 124/67 (86) 98 02/12/19 00:00 57 02/12/19 00:00 Nasal Cannula 2.0 02/12/19 00:00 97.4 57 17 118/57 (77) 96 02/11/19 21:00 67 02/11/19 20:55 59 16 Nasal Cannula 2.0 28 02/11/19 20:55 Nasal Cannula 2.0 28 02/11/19 20:55 96 Nasal Cannula 2.0 28 02/11/19 20:00 98.9 67 17 135/75 (95) 95 02/11/19 20:00 Nasal Cannula 2.0 02/11/19 20:00 63 02/11/19 16:00 97.7 58 20 99/69 (79) 97 02/11/19 16:00 Nasal Cannula 2.0 02/11/19 16:00 59 Intake and Output 02/11/19 02/12/19 19:00 07:00 Intake Total 360 ml 100 ml Output Total 600 ml 350 ml Balance -240 ml -250 ml Intake Oral 360 ml 100 ml Output Urine Total 600 ml 350 ml # Voids 2 Laboratory Tests 02/12/19 09:40: White Blood Count 4.0L, Red Blood Count 3.68L, Hemoglobin 10.0L, Hematocrit 31.8L, Mean Corpuscular Volume 86, Mean Corpuscular Hemoglobin 27.0, Mean Corpuscular Hemoglobin Concent 31.3L, Red Cell Distribution Width 15.8H, Platelet Count 122L, Mean Platelet Volume 7.4, Neutrophils (%) (Auto) 66.5, Lymphocytes (%) (Auto) 24.5, Monocytes (%) (Auto) 4.5, Eosinophils (%) (Auto) 3.8H, Basophils (%) (Auto) 0.8, Sodium Level 142, Potassium Level 2.9L, Chloride Level 110H, Carbon Dioxide Level 28, Anion Gap 4L, Blood Urea Nitrogen 9, Creatinine 0.8, Estimat Glomerular Filtration Rate , Glucose Level 104, Uric Acid 3.2, Calcium Level 7.8L, Phosphorus Level 2.8, Magnesium Level 1.3L, Iron Level 26L, Total Iron Binding Capacity 141L, Percent Iron Saturation 18, Unsaturated Iron Binding 115, Ferritin 158, Total Bilirubin 0.3, Gamma Glutamyl Transpeptidase 42, Aspartate Amino Transf (AST/SGOT) 25, Alanine Aminotransferase (ALT/SGPT) 15, Alkaline Phosphatase 121H, Ammonia 49H, Troponin I 0.007, C-Reactive Protein, Quantitative 1.8H, Pro-B-Type Natriuretic Peptide 3485H, Total Protein 6.1L, Albumin 1.7L, Globulin 4.4, Albumin/Globulin Ratio 0.4L, Lipase 94, Vitamin B12 Level 619, Folate 5.2L, Cortisol AM Sample [ Pending] Height (Feet): 5 Height (Inches): 2.00 Weight (Pounds): 140 General Appearance: no apparent distress, alert EENT: PERRL/EOMI, normal ENT inspection Neck: tenderness Cardiovascular: normal rate, regular rhythm Respiratory/Chest: decreased breath sounds Abdomen: non tender, soft Extremities: non-tender Edema: trace edema Neurologic: alert, responsive Skin: warm/dry Kamari Nunez February 12, 2019 13:10
--- NOTE | 2019-02-12 13:32 | Nephrology Progress Note ---
Assessment/Plan Problem List: (1) UTI (urinary tract infection) (2) Syncope (3) Electrolyte abnormality (4) Hypoalbuminemia (5) Proteinuria Assessment Dehydration UTI (urinary tract infection) COPD (chronic obstructive pulmonary disease) Head trauma Eyebrow laceration Upper extremity weakness Others: 1. History of heroin intravenous drug use. 2. Hepatitis C. 3. Hypertension. 4. Chronic obstructive pulmonary disease. 5. Cirrhosis. Plan stop hydrate 24 h urine total protein gabriel for collection folic acid- Iron IV one dose Mag IV K PO watch bradycardia monitor lytes and renal parameters antibiotics for UTI per order Subjective ROS Limited/Unobtainable: No Constitutional: Reports: malaise Objective Objective Last 24 Hour Vital Signs Date Time Temp Pulse Resp B/P (MAP) Pulse Ox O2 Delivery O2 Flow Rate FiO2 02/12/19 08:00 97.9 58 20 118/59 (78) 98 02/12/19 04:00 Nasal Cannula 2.0 02/12/19 04:00 53 02/12/19 04:00 97.4 54 17 124/67 (86) 98 02/12/19 00:00 57 02/12/19 00:00 Nasal Cannula 2.0 02/12/19 00:00 97.4 57 17 118/57 (77) 96 02/11/19 21:00 67 02/11/19 20:55 59 16 Nasal Cannula 2.0 28 02/11/19 20:55 Nasal Cannula 2.0 28 02/11/19 20:55 96 Nasal Cannula 2.0 28 02/11/19 20:00 98.9 67 17 135/75 (95) 95 02/11/19 20:00 Nasal Cannula 2.0 02/11/19 20:00 63 02/11/19 16:00 97.7 58 20 99/69 (79) 97 02/11/19 16:00 Nasal Cannula 2.0 02/11/19 16:00 59 Intake and Output 02/11/19 02/12/19 18:59 06:59 Intake Total 360 ml 100 ml Output Total 600 ml 350 ml Balance -240 ml -250 ml Intake Oral 360 ml 100 ml Output Urine Total 600 ml 350 ml # Voids 2 Laboratory Tests 02/12/19 09:40: White Blood Count 4.0L, Red Blood Count 3.68L, Hemoglobin 10.0L, Hematocrit 31.8L, Mean Corpuscular Volume 86, Mean Corpuscular Hemoglobin 27.0, Mean Corpuscular Hemoglobin Concent 31.3L, Red Cell Distribution Width 15.8H, Platelet Count 122L, Mean Platelet Volume 7.4, Neutrophils (%) (Auto) 66.5, Lymphocytes (%) (Auto) 24.5, Monocytes (%) (Auto) 4.5, Eosinophils (%) (Auto) 3.8H, Basophils (%) (Auto) 0.8, Sodium Level 142, Potassium Level 2.9L, Chloride Level 110H, Carbon Dioxide Level 28, Anion Gap 4L, Blood Urea Nitrogen 9, Creatinine 0.8, Estimat Glomerular Filtration Rate , Glucose Level 104, Uric Acid 3.2, Calcium Level 7.8L, Phosphorus Level 2.8, Magnesium Level 1.3L, Iron Level 26L, Total Iron Binding Capacity 141L, Percent Iron Saturation 18, Unsaturated Iron Binding 115, Ferritin 158, Total Bilirubin 0.3, Gamma Glutamyl Transpeptidase 42, Aspartate Amino Transf (AST/SGOT) 25, Alanine Aminotransferase (ALT/SGPT) 15, Alkaline Phosphatase 121H, Ammonia 49H, Troponin I 0.007, C-Reactive Protein, Quantitative 1.8H, Pro-B-Type Natriuretic Peptide 3485H, Total Protein 6.1L, Albumin 1.7L, Globulin 4.4, Albumin/Globulin Ratio 0.4L, Lipase 94, Vitamin B12 Level 619, Folate 5.2L, Cortisol AM Sample [ Pending] Height (Feet): 5 Height (Inches): 2.00 Weight (Pounds): 140 General Appearance: no apparent distress Cardiovascular: normal rate Respiratory/Chest: decreased breath sounds Abdomen: distended Fred Bolden MD February 12, 2019 13:32
--- NOTE | 2019-02-12 14:17 | NUR ---
per Dialysis nurse Deya, she was given another assignment, she will call her company so another nurse can be sent in her behalf.
--- NOTE | 2019-02-12 14:25 | NUR ---
rocephin will run late, looking for an available pump. Also per pharmacy rocephin and magnesium are compatible to run on the tripple lumen central line.
--- NOTE | 2019-02-12 14:41 | NUR ---
NURSE NOTES: Pt not in Tele unit went down for Xrays .
[2019-02-12] MEDS ORDERED: Iron Sucrose 200 MG in NS 110 ML IV SCH (15:00)
--- NOTE | 2019-02-12 15:17 | NUR ---
NURSE NOTES: pt down in Lab but unable to get XRay she is contracted and can not get up. Radiology wants to do a CT instead, awaiting Mayra MATA response.
[2019-02-12 16:00] VITALS: BP 120/69
[2019-02-12] MEDS: cefTRIAXone 1 GM in D5W 55 ML IVPB SCH (17:23)
--- NOTE | 2019-02-12 17:56 | Neurology Progress Note ---
Interim History Interim History ROS Limited/Unobtainable: No Complaints: Fall and Head Injury Events: None significant Review of Systems All Systems: reviewed and negative except above Objective Physical Exam Last Vital Signs Date Time Temp Pulse Resp B/P (MAP) Pulse Ox O2 Delivery O2 Flow Rate FiO2 02/12/19 16:00 97.2 54 20 120/69 (86) 96 02/12/19 04:00 Nasal Cannula 2.0 02/11/19 20:55 28 Laboratory Tests Test 02/12/19 09:40 White Blood Count 4.0 K/UL (4.8-10.8) L Red Blood Count 3.68 M/UL (4.20-5.40) L Hemoglobin 10.0 G/DL (12.0-16.0) L Hematocrit 31.8 % (37.0-47.0) L Mean Corpuscular Volume 86 FL (80-99) Mean Corpuscular Hemoglobin 27.0 PG (27.0-31.0) Mean Corpuscular Hemoglobin Concent 31.3 G/DL (32.0-36.0) L Red Cell Distribution Width 15.8 % (11.6-14.8) H Platelet Count 122 K/UL (150-450) L Mean Platelet Volume 7.4 FL (6.5-10.1) Neutrophils (%) (Auto) 66.5 % (45.0-75.0) Lymphocytes (%) (Auto) 24.5 % (20.0-45.0) Monocytes (%) (Auto) 4.5 % (1.0-10.0) Eosinophils (%) (Auto) 3.8 % (0.0-3.0) H Basophils (%) (Auto) 0.8 % (0.0-2.0) Sodium Level 142 MMOL/L (136-145) Potassium Level 2.9 MMOL/L (3.5-5.1) L Chloride Level 110 MMOL/L (98-107) H Carbon Dioxide Level 28 MMOL/L (21-32) Anion Gap 4 mmol/L (5-15) L Blood Urea Nitrogen 9 mg/dL (7-18) Creatinine 0.8 MG/DL (0.55-1.30) Estimat Glomerular Filtration Rate mL/min (>60) Glucose Level 104 MG/DL (74-106) Uric Acid 3.2 MG/DL (2.6-7.2) Calcium Level 7.8 MG/DL (8.5-10.1) L Phosphorus Level 2.8 MG/DL (2.5-4.9) Magnesium Level 1.3 MG/DL (1.8-2.4) L Iron Level 26 ug/dL (50-175) L Total Iron Binding Capacity 141 ug/dL (250-450) L Percent Iron Saturation 18 % (15-50) Unsaturated Iron Binding 115 ug/dL (112-346) Ferritin 158 NG/ML (8-388) Total Bilirubin 0.3 MG/DL (0.2-1.0) Gamma Glutamyl Transpeptidase 42 U/L (5-85) Aspartate Amino Transf (AST/SGOT) 25 U/L (15-37) Alanine Aminotransferase (ALT/SGPT) 15 U/L (12-78) Alkaline Phosphatase 121 U/L (46-116) H Ammonia 49 umol/L (11-32) H Troponin I 0.007 ng/mL (0.000-0.056) C-Reactive Protein, Quantitative 1.8 mg/dL (0.00-0.90) H Pro-B-Type Natriuretic Peptide 3485 pg/mL (0-125) H Total Protein 6.1 G/DL (6.4-8.2) L Albumin 1.7 G/DL (3.4-5.0) L Globulin 4.4 g/dL Albumin/Globulin Ratio 0.4 (1.0-2.7) L Lipase 94 U/L (73-393) Vitamin B12 Level 619 PG/ML (193-986) Folate 5.2 NG/ML (8.6-58.9) L Cortisol AM Sample Pending General: well developed, no acute distress, other - Thin Head: normocophalic Neck: no rigidity EENT: benign Neurologic Exam Mental Status: awake, alert, oriented x4, normal cognition, good mathematical skills, normal recent memory, normal remote memory, preserved visuospatial function Speech: normal speech, no dysarthia Language: normal language, no aphasia Cranial Nerve II: fundus normal, visual aguirre, no papilledema Cranial Nerve VIII: normal hearing Cranial Nerve IX: normal palate elevation Cranial Nerve X: no voice hoarseness Cranial Nerve XI: SCM symmetric, trapezii function normal Cranial Nerve XII: tongue midline, no tongue atrophy/fasciculations Motor System: other - Baseline contractures and strength unchanged/ stable Sensory: normal pinprick, normal light touch Deep Tendon Reflexes: 1+ bicep (L), 1+ bicep (R), 1+ tricep (L), 1+ tricep (R) , 1+ brachioradialis (L), 1+ brachioradialis (R), 1+ knee (L), 1+ knee (R), 1+ ankle (L), 1+ ankle (R) Reflexes: flexor plantar (L), flexor plantar (R); extensor plantar (L), extensor plantar (R) Impression/Recommendations Problems: (1) COPD (chronic obstructive pulmonary disease) (2) Head trauma (3) Upper extremity weakness (4) Eyebrow laceration (5) Dehydration (6) Anemia Status: stable, progressing, tolerating diet Recommendations Continue Q4 hr neuro obs No correlation between neuro exam and current ammonia levels. Continue to monitor No plan changes or interventions suggested at this time. Svetlana Manzo N.P. February 12, 2019 17:56
--- NOTE | 2019-02-12 19:39 | NUR ---
NURSE NOTES: Mag sulfate last 2 out of 4 bags time adjusted. DCd last remaining bags due at 1545 and 1645. Adjusted to 1900 and 2000
--- NOTE | 2019-02-12 19:46 | NUR ---
NURSE NOTES: Received report from Bev Valdovinos RN. patient in bed AAO X3 with HOB elevated at semi fowlers with no complaints of acute pain noted at this time. Able to express needs and wants verbally with noted weakness on right side of body, with no slurred speech noted. Right IJ noted for IV access, intact and patent. Placed on continuous cardiac monitoring per protocol. Kept on NC at 2L with 02 sat between 94-95% with no S/S of resp distress or SOB. Patient is placed on external catheter for incontinence; tubing is intact and patent and draining well. Safety precaution in place; siderails X3 up, call light within reach, bed in lowest position, brakes and alarm on at all times. Needs and wants anticipated and attended. Will continue plan of care and monitor for any changes noted.
--- NOTE | 2019-02-12 19:47 | NUR ---
HAND-OFF: Report given to Mike RN. There is still 1 bad of magnesium hanging and 2 still that need to be hanged to complete order. Continue collection of 24hr urine, it will end 02/13 1620.
--- NOTE | 2019-02-12 19:50 | NUR ---
pt gabriel was inserted at 1600 and urine collection will continue for 24hrs.
[2019-02-12 20:00] VITALS: BP 127/73
[2019-02-12] MEDS: Dyna-Hex 2% Top Sol 2oz TOPIC SCH (20:21)
--- NOTE | 2019-02-12 21:29 | General Progress Note ---
Assessment/Plan Problem List: (1) Syncope ICD Codes: R55 - Syncope and collapse SNOMED: 894287665 (2) Head trauma ICD Codes: S09.90XA - Unspecified injury of head, initial encounter SNOMED: 93873061 Qualifiers: Qualified Codes: S09.90XA - Unspecified injury of head, initial encounter (3) UTI (urinary tract infection) ICD Codes: N39.0 - Urinary tract infection, site not specified SNOMED: 75038264 Qualifiers: Qualified Codes: N39.0 - Urinary tract infection, site not specified (4) Upper extremity weakness ICD Codes: R29.898 - Other symptoms and signs involving the musculoskeletal system SNOMED: 674521376 (5) Eyebrow laceration ICD Codes: S01.119A - Laceration without foreign body of unspecified eyelid and periocular area, initial encounter SNOMED: 023609019 Qualifiers: Qualified Codes: S01.112A - Laceration without foreign body of left eyelid and periocular area, initial encounter Status: progressing Assessment/Plan: head trauma no mental status changes uti improved dc planning reviewed chart and labs Subjective ROS Limited/Unobtainable: Yes Allergies: Coded Allergies: No Known Allergies (Unverified , 02/10/19) Objective Last 24 Hour Vital Signs Date Time Temp Pulse Resp B/P (MAP) Pulse Ox O2 Delivery O2 Flow Rate FiO2 02/12/19 16:00 97.2 54 20 120/69 (86) 96 02/12/19 16:00 53 02/12/19 12:00 56 02/12/19 12:00 97.5 54 18 104/59 (74) 96 02/12/19 09:00 53 52 02/12/19 09:00 Nasal Cannula 2.0 02/12/19 08:00 65 02/12/19 08:00 97.9 58 20 118/59 (78) 98 02/12/19 04:00 Nasal Cannula 2.0 02/12/19 04:00 53 02/12/19 04:00 97.4 54 17 124/67 (86) 98 02/12/19 00:00 57 02/12/19 00:00 Nasal Cannula 2.0 02/12/19 00:00 97.4 57 17 118/57 (77) 96 Intake and Output 02/11/19 02/12/19 18:59 06:59 Intake Total 360 ml 100 ml Output Total 600 ml 350 ml Balance -240 ml -250 ml Intake Oral 360 ml 100 ml Output Urine Total 600 ml 350 ml # Voids 2 Laboratory Tests 02/12/19 09:40: White Blood Count 4.0L, Red Blood Count 3.68L, Hemoglobin 10.0L, Hematocrit 31.8L, Mean Corpuscular Volume 86, Mean Corpuscular Hemoglobin 27.0, Mean Corpuscular Hemoglobin Concent 31.3L, Red Cell Distribution Width 15.8H, Platelet Count 122L, Mean Platelet Volume 7.4, Neutrophils (%) (Auto) 66.5, Lymphocytes (%) (Auto) 24.5, Monocytes (%) (Auto) 4.5, Eosinophils (%) (Auto) 3.8H, Basophils (%) (Auto) 0.8, Sodium Level 142, Potassium Level 2.9L, Chloride Level 110H, Carbon Dioxide Level 28, Anion Gap 4L, Blood Urea Nitrogen 9, Creatinine 0.8, Estimat Glomerular Filtration Rate , Glucose Level 104, Uric Acid 3.2, Calcium Level 7.8L, Phosphorus Level 2.8, Magnesium Level 1.3L, Iron Level 26L, Total Iron Binding Capacity 141L, Percent Iron Saturation 18, Unsaturated Iron Binding 115, Ferritin 158, Total Bilirubin 0.3, Gamma Glutamyl Transpeptidase 42, Aspartate Amino Transf (AST/SGOT) 25, Alanine Aminotransferase (ALT/SGPT) 15, Alkaline Phosphatase 121H, Ammonia 49H, Troponin I 0.007, C-Reactive Protein, Quantitative 1.8H, Pro-B-Type Natriuretic Peptide 3485H, Total Protein 6.1L, Albumin 1.7L, Globulin 4.4, Albumin/Globulin Ratio 0.4L, Lipase 94, Vitamin B12 Level 619, Folate 5.2L, Cortisol AM Sample [ Pending] Height (Feet): 5 Height (Inches): 2.00 Weight (Pounds): 140 Cardiovascular: normal rate Respiratory/Chest: lungs clear Abdomen: soft Geoffrey Whyte MD February 12, 2019 21:29
[2019-02-13] VITALS: BP 113/70
--- NOTE | 2019-02-13 03:04 | NUR ---
NURSE NOTES: Patient in bed asleep with no S/S of distress noted at this time. Will continue to monitor
[2019-02-13 04:00] VITALS: BP 128/67
--- NOTE | 2019-02-13 07:41 | NUR ---
HAND-OFF: Report given to Bev David RN. Patient in bed with no S/S of distress noted at this time. Endorsed plan of care
--- NOTE | 2019-02-13 07:54 | NUR ---
NURSE NOTES: received report from Mike MARTE. Pt in bed set up breakfast on table and is now eating. replenished ice on 24hr urine container. Pt on monitoring manager no signs of distress. Call light within reach and bed locked and in lowest position. Will continue to follow plan of care.
[2019-02-13 08:00] VITALS: BP 111/60
--- NOTE | 2019-02-13 08:42 | General Progress Note ---
Assessment/Plan Status: stable Assessment/Plan: (1) H/o CVA (2) Thalamic pain syndrome (3) S/p fall head contusion (4) Neck and back pain r/o fracture (5) H/O Heroin abuse Pt to be continued on Methadone and Morphine D/w Dr. Castro and he concurred. Subjective Date patient seen: February 13, 2019 Time patient seen: 07:15 - am Allergies: Coded Allergies: No Known Allergies (Unverified , 02/10/19) Subjective Constitutional: Reports: weakness HEENT: Reports: no symptoms Cardiovascular: Reports: no symptoms Respiratory: Reports: no symptoms Gastrointestinal/Abdominal: Reports: no symptoms Genitourinary: Reports: no symptoms Neurologic/Psychiatric: Reports: weakness Endocrine: Reports: no symptoms Hematologic/Lymphatic: Reports: no symptoms Subjective Patient is in bed and reports that the pain has been unchanged waiting for xrays to be performed. Objective Last 24 Hour Vital Signs Date Time Temp Pulse Resp B/P (MAP) Pulse Ox O2 Delivery O2 Flow Rate FiO2 02/13/19 04:00 55 02/13/19 04:00 97.9 59 20 128/67 (87) 95 02/13/19 00:00 97.3 60 20 113/70 (84) 96 02/13/19 00:00 58 02/12/19 23:07 66 18 Nasal Cannula 2.0 28 02/12/19 23:05 66 18 98 Nasal Cannula 2.0 28 02/12/19 22:56 Nasal Cannula 2.0 28 02/12/19 22:56 56 20 96 Nasal Cannula 2.0 28 02/12/19 22:56 96 Nasal Cannula 2.0 28 02/12/19 21:00 60 53 02/12/19 21:00 Nasal Cannula 2.0 02/12/19 20:00 97.0 53 20 127/73 (91) 97 02/12/19 20:00 53 02/12/19 16:00 97.2 54 20 120/69 (86) 96 02/12/19 16:00 53 02/12/19 12:00 56 02/12/19 12:00 97.5 54 18 104/59 (74) 96 02/12/19 09:00 53 52 02/12/19 09:00 Nasal Cannula 2.0 Intake and Output 02/12/19 02/13/19 19:00 07:00 Intake Total 360 ml Output Total 200 ml 1500 ml Balance 160 ml -1500 ml Intake Oral 360 ml Output Urine Total 200 ml 1500 ml # Voids 2 Laboratory Tests 02/12/19 09:40: White Blood Count 4.0L, Red Blood Count 3.68L, Hemoglobin 10.0L, Hematocrit 31.8L, Mean Corpuscular Volume 86, Mean Corpuscular Hemoglobin 27.0, Mean Corpuscular Hemoglobin Concent 31.3L, Red Cell Distribution Width 15.8H, Platelet Count 122L, Mean Platelet Volume 7.4, Neutrophils (%) (Auto) 66.5, Lymphocytes (%) (Auto) 24.5, Monocytes (%) (Auto) 4.5, Eosinophils (%) (Auto) 3.8H, Basophils (%) (Auto) 0.8, Sodium Level 142, Potassium Level 2.9L, Chloride Level 110H, Carbon Dioxide Level 28, Anion Gap 4L, Blood Urea Nitrogen 9, Creatinine 0.8, Estimat Glomerular Filtration Rate , Glucose Level 104, Uric Acid 3.2, Calcium Level 7.8L, Phosphorus Level 2.8, Magnesium Level 1.3L, Iron Level 26L, Total Iron Binding Capacity 141L, Percent Iron Saturation 18, Unsaturated Iron Binding 115, Ferritin 158, Total Bilirubin 0.3, Gamma Glutamyl Transpeptidase 42, Aspartate Amino Transf (AST/SGOT) 25, Alanine Aminotransferase (ALT/SGPT) 15, Alkaline Phosphatase 121H, Ammonia 49H, Troponin I 0.007, C-Reactive Protein, Quantitative 1.8H, Pro-B-Type Natriuretic Peptide 3485H, Total Protein 6.1L, Albumin 1.7L, Globulin 4.4, Albumin/Globulin Ratio 0.4L, Lipase 94, Vitamin B12 Level 619, Folate 5.2L, Cortisol AM Sample 10.6 Height (Feet): 5 Height (Inches): 2.00 Weight (Pounds): 140 Objective General Appearance: no apparent distress, alert EENT: PERRL/EOMI, normal ENT inspection Neck: tenderness Cardiovascular: normal rate, regular rhythm Respiratory/Chest: decreased breath sounds Abdomen: non tender, soft Extremities: non-tender Edema: trace edema Neurologic: alert, responsive Skin: warm/dry Kamari Nunez February 13, 2019 08:42
--- NOTE | 2019-02-13 08:45 | Neurology Progress Note ---
Interim History Interim History ROS Limited/Unobtainable: Yes Complaints: Head Injury Events: Stable MS Interim History This visit was conducted on February 13, [address] Altamirano. Objective Physical Exam Last Vital Signs Date Time Temp Pulse Resp B/P (MAP) Pulse Ox O2 Delivery O2 Flow Rate FiO2 02/13/19 04:00 55 02/13/19 04:00 97.9 20 128/67 (87) 95 02/12/19 23:07 Nasal Cannula 2.0 28 Laboratory Tests Test 02/12/19 09:40 White Blood Count 4.0 K/UL (4.8-10.8) L Red Blood Count 3.68 M/UL (4.20-5.40) L Hemoglobin 10.0 G/DL (12.0-16.0) L Hematocrit 31.8 % (37.0-47.0) L Mean Corpuscular Volume 86 FL (80-99) Mean Corpuscular Hemoglobin 27.0 PG (27.0-31.0) Mean Corpuscular Hemoglobin Concent 31.3 G/DL (32.0-36.0) L Red Cell Distribution Width 15.8 % (11.6-14.8) H Platelet Count 122 K/UL (150-450) L Mean Platelet Volume 7.4 FL (6.5-10.1) Neutrophils (%) (Auto) 66.5 % (45.0-75.0) Lymphocytes (%) (Auto) 24.5 % (20.0-45.0) Monocytes (%) (Auto) 4.5 % (1.0-10.0) Eosinophils (%) (Auto) 3.8 % (0.0-3.0) H Basophils (%) (Auto) 0.8 % (0.0-2.0) Sodium Level 142 MMOL/L (136-145) Potassium Level 2.9 MMOL/L (3.5-5.1) L Chloride Level 110 MMOL/L (98-107) H Carbon Dioxide Level 28 MMOL/L (21-32) Anion Gap 4 mmol/L (5-15) L Blood Urea Nitrogen 9 mg/dL (7-18) Creatinine 0.8 MG/DL (0.55-1.30) Estimat Glomerular Filtration Rate mL/min (>60) Glucose Level 104 MG/DL (74-106) Uric Acid 3.2 MG/DL (2.6-7.2) Calcium Level 7.8 MG/DL (8.5-10.1) L Phosphorus Level 2.8 MG/DL (2.5-4.9) Magnesium Level 1.3 MG/DL (1.8-2.4) L Iron Level 26 ug/dL (50-175) L Total Iron Binding Capacity 141 ug/dL (250-450) L Percent Iron Saturation 18 % (15-50) Unsaturated Iron Binding 115 ug/dL (112-346) Ferritin 158 NG/ML (8-388) Total Bilirubin 0.3 MG/DL (0.2-1.0) Gamma Glutamyl Transpeptidase 42 U/L (5-85) Aspartate Amino Transf (AST/SGOT) 25 U/L (15-37) Alanine Aminotransferase (ALT/SGPT) 15 U/L (12-78) Alkaline Phosphatase 121 U/L (46-116) H Ammonia 49 umol/L (11-32) H Troponin I 0.007 ng/mL (0.000-0.056) C-Reactive Protein, Quantitative 1.8 mg/dL (0.00-0.90) H Pro-B-Type Natriuretic Peptide 3485 pg/mL (0-125) H Total Protein 6.1 G/DL (6.4-8.2) L Albumin 1.7 G/DL (3.4-5.0) L Globulin 4.4 g/dL Albumin/Globulin Ratio 0.4 (1.0-2.7) L Lipase 94 U/L (73-393) Vitamin B12 Level 619 PG/ML (193-986) Folate 5.2 NG/ML (8.6-58.9) L Cortisol AM Sample 10.6 UG/DL General: well developed, no acute distress, other - Thin Head: normocophalic Neck: no rigidity EENT: benign Neurologic Exam Mental Status: awake, alert, oriented x4, normal cognition, good mathematical skills, normal recent memory, normal remote memory, preserved visuospatial function Speech: normal speech, no dysarthia Language: normal language, no aphasia Cranial Nerve II: fundus normal, visual aguirre, no papilledema Cranial Nerves III, IV, : PERRLA, EOMI Cranial Nerve V: normal facial sensations Cranial Nerve VIII: normal hearing Cranial Nerve IX: normal palate elevation Cranial Nerve X: no voice hoarseness Cranial Nerve XI: SCM symmetric, trapezii function normal Cranial Nerve XII: tongue midline, no tongue atrophy/fasciculations Motor System: other - Baseline contractures and strength unchanged/ stable Sensory: normal pinprick, normal light touch Deep Tendon Reflexes: 1+ bicep (L), 1+ bicep (R), 1+ tricep (L), 1+ tricep (R) , 1+ brachioradialis (L), 1+ brachioradialis (R), 1+ knee (L), 1+ knee (R), 1+ ankle (L), 1+ ankle (R) Reflexes: flexor plantar (L), flexor plantar (R); extensor plantar (L), extensor plantar (R) Impression/Recommendations Problems: (1) COPD (chronic obstructive pulmonary disease) (2) Head trauma (3) Upper extremity weakness (4) Eyebrow laceration (5) Dehydration (6) Anemia Status: stable, progressing, tolerating diet Diagnostic Impression Exam improved- previously drowsy and now alert/ oriented Continue Q4 Hour neuro obs Patient refusing MRI Brain at this time. Maintain Na 135-145 HgB> 8 Correct deficiencies - iron , folate etc PT eval for D/C planning SBP<140 No changes to Gabapentin dose at this time. Recommendations Continue Q4 hr neuro obs No correlation between neuro exam and current ammonia levels. Continue to monitor No plan changes or interventions suggested at this time. Maintain Sleep hygiene while awaiting transfer back to [facility] Svetlana Manzo N.P. February 13, 2019 08:45
[2019-02-13] MEDS: Sertraline 50mg tab ORAL SCH (09:05)
[2019-02-13] MEDS: Docusate 100mg cap ORAL SCH ×3 (09:06→18:34)
[2019-02-13] MEDS: Aspirin Baby 81mg ORAL SCH (09:06)
[2019-02-13] MEDS: Calmoseptine Oint 4oz TOPIC SCH (09:08)
--- NOTE | 2019-02-13 11:31 | NUR ---
MRI BRAIN COMPLETED.
--- NOTE | 2019-02-13 11:45 | NUR ---
ST NOTE: ATTEMPTED B/S EVAL. PT WAS TAKEN FOR MRI BRAIN. WILL FOLLOW UP. CHRISTINE MARTE, NOTIFIED.
--- NOTE | 2019-02-13 11:58 | Diagnostic Imaging Report ---
Indication: Syncope. History of head trauma Technique: The head was imaged in a 1.5 Denise magnet. Sequences obtained include sagittal and axial T1 FLAIR, axial T2 fast spin echo with fat saturation, axial T2 FLAIR, diffusion and ADC map. Comparison: None Findings: There is mild prominence of the sulci, ventricles, and basal cisterns consistent with atrophy. Mild, nonspecific T2 hyperintensity noted within white matter. This may be due to chronic small vessel disease. There is no restricted diffusion. Marie-white differentiation is normal. There is no mass effect, midline shift, edema, or hemorrhage. There are no abnormal extra-axial or intra-axial fluid collections. The corpus callosum and sella are unremarkable. The brainstem and cerebellum are unremarkable. Bone marrow signal within the visualized osseous structures appears age appropriate and unremarkable otherwise. Impression: No acute intracranial findings. Mild atrophy and evidence of chronic small vessel disease involving white matter tracts.
--- NOTE | 2019-02-13 11:59 | Cardiac Electrophysiology PN ---
Assessment/Plan Assessment/Plan 1. Syncope, etiology is not clear at this time. Ruled out for myocardial infarction. Echo EF 60% 2. History of heroin use and chronic pain syndrome. On Morphine, methadone, and Neurontin per Pain Management. 3. History of hepatitis C and cirrhosis. Subjective Subjective Just had MRI brain. No CP or SOB Objective Last 24 Hour Vital Signs Date Time Temp Pulse Resp B/P (MAP) Pulse Ox O2 Delivery O2 Flow Rate FiO2 02/13/19 10:36 97 Nasal Cannula 2.0 28 02/13/19 10:36 Nasal Cannula 2.0 28 02/13/19 10:36 68 18 Nasal Cannula 2.0 28 02/13/19 08:00 98.9 56 22 111/60 (77) 94 02/13/19 04:00 55 02/13/19 04:00 97.9 59 20 128/67 (87) 95 02/13/19 00:00 97.3 60 20 113/70 (84) 96 02/13/19 00:00 58 02/12/19 23:07 66 18 Nasal Cannula 2.0 28 02/12/19 23:05 66 18 98 Nasal Cannula 2.0 28 02/12/19 22:56 Nasal Cannula 2.0 28 02/12/19 22:56 56 20 96 Nasal Cannula 2.0 28 02/12/19 22:56 96 Nasal Cannula 2.0 28 02/12/19 21:00 60 53 02/12/19 21:00 Nasal Cannula 2.0 02/12/19 20:00 97.0 53 20 127/73 (91) 97 02/12/19 20:00 53 02/12/19 16:00 97.2 54 20 120/69 (86) 96 02/12/19 16:00 53 02/12/19 12:00 56 02/12/19 12:00 97.5 54 18 104/59 (74) 96 Intake and Output 02/12/19 02/13/19 19:00 07:00 Intake Total 360 ml Output Total 200 ml 1500 ml Balance 160 ml -1500 ml Intake Oral 360 ml Output Urine Total 200 ml 1500 ml # Voids 2 Objective HEAD AND NECK: Shows no jugular venous distention. LUNGS: Clear. CARDIOVASCULAR: Shows regular S1 and S2 with no gallop or murmur. ABDOMEN: Soft. EXTREMITIES: No pitting edema. Robbie Gonzalez MD February 13, 2019 11:59
[2019-02-13 12:00] VITALS: BP 146/71
--- NOTE | 2019-02-13 12:18 | NUR ---
ST NOTE: BEDSIDE SWALLOW EVAL RECEIVED BEDSIDE SWALLOW EVAL ORDER CHART REVIEWED PRIOR THE EVALUATION PT IS A 73-YEAR-OLD FEMALE WHO WAS ADMITTED FOR SYNCOPE(POST FALL) DYSPHAGIA RISK FACTORS: CVA W/R-SIDED WEAKNESS, HTN, COGNITIVE-COMM DEFICITS, CERVICAL FUSION(?WHERE). PER HEAD CT AND MRI: NO ACUTE PROCESS, MILD ATROPHY OF THE BRAIN. PT RESIDES AT [facility]. PER CHART, PT WAS ON [facility] SOFT(GROUND) WITH THIN LIQUIDS. CURRENT STATUS: PT ALERT, COOPERATIVE, FOLLOWS DIRECTIONS. PT WITH NC(2L). GIVEN PO TRIALS(THI-STRAW) AND PUREE(TSP) INITIAL IMPRESSION: PROBABLE MILD OR WORSENED OROPHARYNGEAL DYSPHAGIA MILD INCREASED ORAL TRANSIT TIME AND OROPHARYNGEAL TRASNIT TIME(3SECONDS) TILL PT INITIATED PHARYNGEAL SWALLOWING, FAIR LARYNGEAL ELEVATION, NO OVERT S/S OF ASPIRATION. RECOMMENDATIONS: 1. FOR [facility] WITH THIN LIQUIDS 2. STRICT ASPIRATION PRECAUTIONS WITH ASSISTANCE 3. CONSIDER MODIFIED BARIUM SWALLOW STUDY IP OR OP D/W PT AND RNCHRISTINE. POSTED ASPIRATION PRECAUTIONS SIGN.
[2019-02-13 12:55] LABS: ALANINE AMINOTRANSFERASE 16 U/L (12-78); ALBUMIN 1.9 G/DL (3.4-5.0); ALBUMIN/GLOBULIN RATIO 0.4 (1.0-2.7); ALKALINE PHOSPHATASE 134 U/L (46-116); ANION GAP 6 mmol/L (5-15); ASPARTATE AMINO TRANSFERASE 26 U/L (15-37); BILIRUBIN,TOTAL 0.3 MG/DL (0.2-1.0); BLOOD UREA NITROGEN 6 mg/dL (7-18); CARBON DIOXIDE 26 MMOL/L (21-32); CHLORIDE 108 MMOL/L (98-107); CREATININE 0.7 MG/DL (0.55-1.30); PHOSPHORUS 2.6 MG/DL (2.5-4.9); POTASSIUM 4.3 MMOL/L (3.5-5.1); SODIUM 140 MMOL/L (136-145)
--- NOTE | 2019-02-13 13:16 | Diagnostic Imaging Report ---
Indication: Back pain Comparison: None Findings: 3 views of the lumbar spine were obtained. There is severe limitation on this study with poor visualization of much of the lumbar spine on the lateral view. There is suggestion of degenerative disease with narrowing of intervertebral discs, osteopenia and endplate osteophytes facet arthropathy. Aorta is moderately calcified. IMPRESSION: Very limited study. No obvious acute injury
[2019-02-13] MEDS: cefTRIAXone 1 GM in D5W 55 ML IVPB SCH (13:40)
--- NOTE | 2019-02-13 14:34 | Nephrology Progress Note ---
Assessment/Plan Problem List: (1) UTI (urinary tract infection) (2) Syncope (3) Electrolyte abnormality (4) Hypoalbuminemia (5) Proteinuria Assessment Dehydration UTI (urinary tract infection) COPD (chronic obstructive pulmonary disease) Head trauma Eyebrow laceration Upper extremity weakness Others: 1. History of heroin intravenous drug use. 2. Hepatitis C. 3. Hypertension. 4. Chronic obstructive pulmonary disease. 5. Cirrhosis. Plan stop hydrate 24 h urine total protein gabriel for collection folic acid- Iron IV one dose mag , K , Phos , supplement as needed watch bradycardia monitor lytes and renal parameters antibiotics for UTI per order Subjective ROS Limited/Unobtainable: No Objective Objective Last 24 Hour Vital Signs Date Time Temp Pulse Resp B/P (MAP) Pulse Ox O2 Delivery O2 Flow Rate FiO2 02/13/19 10:36 97 Nasal Cannula 2.0 28 02/13/19 10:36 Nasal Cannula 2.0 28 02/13/19 10:36 68 18 Nasal Cannula 2.0 28 02/13/19 08:00 98.9 56 22 111/60 (77) 94 02/13/19 04:00 55 02/13/19 04:00 97.9 59 20 128/67 (87) 95 02/13/19 00:00 97.3 60 20 113/70 (84) 96 02/13/19 00:00 58 02/12/19 23:07 66 18 Nasal Cannula 2.0 28 02/12/19 23:05 66 18 98 Nasal Cannula 2.0 28 02/12/19 22:56 Nasal Cannula 2.0 28 02/12/19 22:56 56 20 96 Nasal Cannula 2.0 28 02/12/19 22:56 96 Nasal Cannula 2.0 28 02/12/19 21:00 60 53 02/12/19 21:00 Nasal Cannula 2.0 02/12/19 20:00 97.0 53 20 127/73 (91) 97 02/12/19 20:00 53 02/12/19 16:00 97.2 54 20 120/69 (86) 96 02/12/19 16:00 53 Intake and Output 02/12/19 02/13/19 19:00 07:00 Intake Total 360 ml Output Total 200 ml 1500 ml Balance 160 ml -1500 ml Intake Oral 360 ml Output Urine Total 200 ml 1500 ml # Voids 2 Laboratory Tests 02/13/19 12:30: Sodium Level 140, Potassium Level 4.3, Chloride Level 108H, Carbon Dioxide Level 26, Anion Gap 6, Blood Urea Nitrogen 6L, Creatinine 0.7, Estimat Glomerular Filtration Rate , Glucose Level 97, Calcium Level 8.0L, Phosphorus Level 2.6, Magnesium Level 1.9, Total Bilirubin 0.3, Aspartate Amino Transf (AST /SGOT) 26, Alanine Aminotransferase (ALT/SGPT) 16, Alkaline Phosphatase 134H, Total Protein 6.5, Albumin 1.9L, Globulin 4.6, Albumin/Globulin Ratio 0.4L Height (Feet): 5 Height (Inches): 2.00 Weight (Pounds): 140 General Appearance: no apparent distress Cardiovascular: bradycardia Respiratory/Chest: decreased breath sounds Abdomen: distended Objective no change Fred Bolden MD February 13, 2019 14:34
--- NOTE | 2019-02-13 15:57 | Diagnostic Imaging Report ---
Indication: Back pain Comparison: None Findings: 2 views of the thoracic spine were obtained. Bones are osteopenic. Narrowing of the disks and endplate spurs noted throughout. No definite fracture identified. IMPRESSION: Mild degenerative changes
[2019-02-13 16:00] VITALS: BP 117/69
--- NOTE | 2019-02-13 16:16 | Diagnostic Imaging Report ---
Indication: Neck Pain Findings: 3 views of the cervical spine were obtained. There is extensive posterior fusion with pedicle screws and fusion rods at C2 C3 C4 C5-C6. There is no obvious fracture. The bones are diffusely osteopenic. There is a prominent offset or anterolisthesis present at C3-4. Visualization of the cervical spine is very limited due to overlying soft tissue. IMPRESSION: Very limited evaluation. Multilevel cervical fusion. Anterolisthesis at C3-4 noted.
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
--- NOTE | 2019-02-13 19:28 | NUR ---
CASE MANAGEMENT: REVIEW SI: SYNCOPE . HX HEP C & CIRRHOSIS T 97.7 HR 59 RR 23 BP 146/71 SAT 94% NC/2L CHLORIDE 108 BUN 6 RUEL 8.0 ALK PHOS 134 IS: CEFTRIAXONE IV Q24HR ASA PO QD NITRO SQ PRN TELEMETRY UNIT STATUS DCP: PATIENT IS FROM [facility]
--- NOTE | 2019-02-13 19:41 | Cardiology Report ---
APPROVED REPORT EKG Measurement Heart [id number] Normal sinus rhythm Septal infarct, age undetermined Abnormal ECG
[2019-02-13 20:00] VITALS: BP 118/57
--- NOTE | 2019-02-13 20:21 | Cardiology Report ---
APPROVED REPORT EXAM: Two-dimensional and M-mode echocardiogram with Doppler and color Doppler. INDICATION Syncope M-Mode DIMENSIONS IVSd1.2 (0.7-1.1cm)Left Atrium (MM)3.5 (1.6-4.0cm) LVDd3.5 (3.5-5.6cm)Aortic Root2.4 (2.0-3.7cm) PWd0.7 (0.7-1.1cm)Aortic Cusp Exc.1.1 (1.5-2.0cm) LVDs2.0 (2.5-4.0cm) PWs0.7 cm Technically difficult study due to poor acoustic windows. Study quality precludes accurate assessment of regional wall motion. Normal left ventricular chamber size, systolic function and wall motion. Left ventricular ejection fraction estimated to be 60 %. Mild left ventricular hypertrophy. No evidence of pericardial effusion. All other cardiac chamber sizes are within normal limits. Moderate focal aortic valve sclerosis with adequate cusp excursion. Mildly thickened mitral valve leaflets with normal excursion. Mild mitral annulus and aortic root calcification. Pulmonic valve not well visualized. Normal tricuspid valve structure. IVC is normal in size with physiological collapse. A color flow and spectral Doppler study was performed and revealed: No aortic insufficiency. No mitral regurgitation. Normal left ventricular diastolic function. No tricuspid regurgitation. Tricuspid systolic velocities suggests peak right ventricular systolic pressure of 13 mmHg. No pulmonic regurgitation present.
--- NOTE | 2019-02-13 21:17 | NUR ---
HAND-OFF: Report given to Anna Zapata RN.
--- NOTE | 2019-02-13 21:48 | NUR ---
Left a message for ADOLFO Nunez with an update on spine Xray results. He will advise wether or not pt needs an MRI of spine.
--- NOTE | 2019-02-13 21:52 | NUR ---
HAND-OFF: Report given to Jodi MARTE. Jodi will endorse to follow up with dr. Mayra dias pt will be needing and MRI of the spine based on the results that were left on voice mail for doctor udeñas.
--- NOTE | 2019-02-13 21:55 | NUR ---
NURSE NOTES: Received report from ROSANNA Martinez. Patient awake in bed showing no signs of acute distress. Respiration even and non labored on room air. No SOB noted. IV line (triple lumen) patent and intact. Daniels patent, intact and draining. Bed in lowest position, wheels locked, and alarm on. All needs attended and met. will continue plan of care.
[2019-02-13] MEDS: Dyna-Hex 2% Top Sol 2oz TOPIC SCH (22:01)
--- NOTE | 2019-02-13 22:17 | General Progress Note ---
Assessment/Plan Problem List: (1) Syncope ICD Codes: R55 - Syncope and collapse SNOMED: 835881143 (2) Head trauma ICD Codes: S09.90XA - Unspecified injury of head, initial encounter SNOMED: 50632060 Qualifiers: Qualified Codes: S09.90XA - Unspecified injury of head, initial encounter (3) UTI (urinary tract infection) ICD Codes: N39.0 - Urinary tract infection, site not specified SNOMED: 64427729 Qualifiers: Qualified Codes: N39.0 - Urinary tract infection, site not specified (4) Upper extremity weakness ICD Codes: R29.898 - Other symptoms and signs involving the musculoskeletal system SNOMED: 403245395 (5) Eyebrow laceration ICD Codes: S01.119A - Laceration without foreign body of unspecified eyelid and periocular area, initial encounter SNOMED: 854313963 Qualifiers: Qualified Codes: S01.112A - Laceration without foreign body of left eyelid and periocular area, initial encounter Status: stable, progressing, tolerating diet Assessment/Plan: dc in am to snf uti improved s/p head trauma afebrile nac Subjective ROS Limited/Unobtainable: Yes Allergies: Coded Allergies: No Known Allergies (Unverified , 02/10/19) Objective Last 24 Hour Vital Signs Date Time Temp Pulse Resp B/P (MAP) Pulse Ox O2 Delivery O2 Flow Rate FiO2 02/13/19 21:58 Nasal Cannula 2.0 28 02/13/19 21:58 59 18 97 Nasal Cannula 2.0 28 02/13/19 21:58 97 Nasal Cannula 2.0 28 02/13/19 16:00 98.6 71 22 117/69 (85) 97 02/13/19 16:00 55 02/13/19 12:00 97.7 59 23 146/71 (96) 93 02/13/19 12:00 57 02/13/19 11:00 51 59 02/13/19 10:36 97 Nasal Cannula 2.0 28 02/13/19 10:36 Nasal Cannula 2.0 28 02/13/19 10:36 68 18 Nasal Cannula 2.0 28 02/13/19 09:00 Nasal Cannula 2.0 02/13/19 08:00 53 02/13/19 08:00 98.9 56 22 111/60 (77) 94 02/13/19 04:00 55 02/13/19 04:00 97.9 59 20 128/67 (87) 95 02/13/19 00:00 97.3 60 20 113/70 (84) 96 02/13/19 00:00 58 02/12/19 23:07 66 18 Nasal Cannula 2.0 28 02/12/19 23:05 66 18 98 Nasal Cannula 2.0 28 02/12/19 22:56 Nasal Cannula 2.0 28 02/12/19 22:56 56 20 96 Nasal Cannula 2.0 28 02/12/19 22:56 96 Nasal Cannula 2.0 28 Intake and Output 02/12/19 02/13/19 18:59 06:59 Intake Total 360 ml Output Total 200 ml 1500 ml Balance 160 ml -1500 ml Intake Oral 360 ml Output Urine Total 200 ml 1500 ml # Voids 2 Laboratory Tests 02/13/19 12:30: Sodium Level 140, Potassium Level 4.3, Chloride Level 108H, Carbon Dioxide Level 26, Anion Gap 6, Blood Urea Nitrogen 6L, Creatinine 0.7, Estimat Glomerular Filtration Rate , Glucose Level 97, Calcium Level 8.0L, Phosphorus Level 2.6, Magnesium Level 1.9, Total Bilirubin 0.3, Aspartate Amino Transf (AST /SGOT) 26, Alanine Aminotransferase (ALT/SGPT) 16, Alkaline Phosphatase 134H, Total Protein 6.5, Albumin 1.9L, Globulin 4.6, Albumin/Globulin Ratio 0.4L 02/13/19 18:50: Hepatitis A IgM Antibody [Pending], Hepatitis B Surface Antigen [Pending], Hepatitis B Core IgM Antibody [Pending], Hepatitis C Antibody [Pending], HIV (1& 2) Antibody Rapid Negative Height (Feet): 5 Height (Inches): 2.00 Weight (Pounds): 140 Neck: supple Cardiovascular: normal rate Respiratory/Chest: lungs clear Geoffrey Whyte MD February 13, 2019 22:17
[2019-02-14] VITALS: BP 116/64
[2019-02-14 04:00] VITALS: BP 119/56
--- NOTE | 2019-02-14 07:35 | NUR ---
NURSE NOTES: Received report from ROSANNA Frank. Patient awake in bed showing no signs of acute distress. Respiration even and non labored on room air. No SOB noted. IV line (triple lumen catheter) is patent, dry, and intact. Patient is using Purewic. Bed in lowest position, wheels locked, and alarm on. All needs attended and met. will continue plan of care. Patient is NPO for abdominal US. Will follow up.
--- NOTE | 2019-02-14 07:36 | NUR ---
HAND-OFF: Report given to ROSANNA Hanson.
[2019-02-14 07:56] VITALS: BP 151/74
[2019-02-14] MEDS: Aspirin Baby 81mg ORAL SCH (10:14)
[2019-02-14] MEDS: Sertraline 50mg tab ORAL SCH (10:15)
[2019-02-14] MEDS: Docusate 100mg cap ORAL SCH ×2 (10:15→14:07)
[2019-02-14] MEDS: Calmoseptine Oint 4oz TOPIC SCH (10:17)
--- NOTE | 2019-02-14 10:38 | Diagnostic Imaging Report ---
Indication: Elevated liver function tests Technique: Grayscale and duplex Doppler imaging of the abdomen performed. Comparison: None Findings: The liver is heterogeneous with surface nodularity consistent with cirrhosis. There are multiple masses within the liver. In the left lobe there is a 3.2 cm mass with internal vascularity. A second adjacent mass measuring 2 cm also noted. Doppler interrogation of the main portal vein shows patency with hepatopedal, monophasic flow. There is no biliary ductal dilitation identified. The CBD measures 10 mm, which is prominent. The gallbladder is unremarkable. There are no gallstones or wall thickening identified. Sonographic bhardwaj's sign was negative per technologist. The demonstrated part of the pancreas, aorta and IVC show no abnormalities. There are nonobstructive stones within the left kidney. There is no hydronephrosis. Bladder is unremarkable. Splenomegaly noted measuring 16 cm. There is no free fluid identified. There is a small right pleural effusion. IMPRESSION: Multiple lesions within the liver. Further evaluation with dynamic contrast CT is recommended to evaluate for malignancy. Chronic liver disease/cirrhosis. Suspected portal hypertension given splenomegaly. Small right pleural effusion Nonobstructive stones suspected within the left kidney.
--- NOTE | 2019-02-14 11:59 | Nephrology Progress Note ---
Assessment/Plan Problem List: (1) UTI (urinary tract infection) (2) Syncope (3) Electrolyte abnormality (4) Hypoalbuminemia (5) Proteinuria Assessment Dehydration UTI (urinary tract infection) COPD (chronic obstructive pulmonary disease) Head trauma Eyebrow laceration Upper extremity weakness Others: 1. History of heroin intravenous drug use. 2. Hepatitis C. 3. Hypertension. 4. Chronic obstructive pulmonary disease. 5. Cirrhosis. Plan stop hydrate 24 h urine total protein : Minimal Protein gabriel for collection folic acid- Iron IV one dose mag , K , Phos , supplement as needed watch bradycardia monitor lytes and renal parameters antibiotics for UTI per order Subjective ROS Limited/Unobtainable: No Objective Objective Last 24 Hour Vital Signs Date Time Temp Pulse Resp B/P (MAP) Pulse Ox O2 Delivery O2 Flow Rate FiO2 02/14/19 07:56 97.6 50 20 151/74 (99) 99 02/14/19 04:00 98.5 76 16 119/56 (77) 96 02/14/19 04:00 52 02/14/19 00:00 56 58 02/14/19 00:00 60 02/14/19 00:00 98.6 58 16 116/64 (81) 98 02/13/19 21:58 Nasal Cannula 2.0 28 02/13/19 21:58 59 18 97 Nasal Cannula 2.0 28 02/13/19 21:58 97 Nasal Cannula 2.0 28 02/13/19 21:00 Nasal Cannula 2.0 02/13/19 20:00 97.9 59 18 118/57 (77) 96 02/13/19 20:00 58 02/13/19 16:00 98.6 71 22 117/69 (85) 97 02/13/19 16:00 55 02/13/19 12:00 97.7 59 23 146/71 (96) 93 02/13/19 12:00 57 Intake and Output 02/13/19 02/14/19 19:00 07:00 Output Total 200 ml 300 ml Balance -200 ml -300 ml Output Urine Total 200 ml 300 ml Laboratory Tests 02/13/19 12:30: Sodium Level 140, Potassium Level 4.3, Chloride Level 108H, Carbon Dioxide Level 26, Anion Gap 6, Blood Urea Nitrogen 6L, Creatinine 0.7, Estimat Glomerular Filtration Rate , Glucose Level 97, Calcium Level 8.0L, Phosphorus Level 2.6, Magnesium Level 1.9, Total Bilirubin 0.3, Aspartate Amino Transf (AST /SGOT) 26, Alanine Aminotransferase (ALT/SGPT) 16, Alkaline Phosphatase 134H, Total Protein 6.5, Albumin 1.9L, Globulin 4.6, Albumin/Globulin Ratio 0.4L 02/13/19 18:50: Hepatitis A IgM Antibody Negative, Hepatitis B Surface Antigen Negative, Hepatitis B Core IgM Antibody Negative, Hepatitis C Antibody >11.0H, HIV (1&2) Antibody Rapid Negative Height (Feet): 5 Height (Inches): 2.00 Weight (Pounds): 140 General Appearance: no apparent distress Cardiovascular: bradycardia Respiratory/Chest: decreased breath sounds Abdomen: soft Objective no change Fred Bolden MD February 14, 2019 11:59
[2019-02-14 12:00] VITALS: BP 139/73
[2019-02-14] MEDS: cefTRIAXone 1 GM in D5W 55 ML IVPB SCH (14:07)
--- NOTE | 2019-02-14 15:00 | NUR ---
NURSE NOTES: Notified Jean Paul Alvarez, son of patient. That the patient is discharge to [facility]. He is aware.
[2019-02-14 15:16] VITALS: BP 120/55
--- NOTE | 2019-02-14 15:18 | General Progress Note ---
Assessment/Plan Status: stable, progressing, tolerating diet Assessment/Plan: Assessment and Recs # Pancytopenia -- multiple etiologies could be related to underlying liver disease, medication-induced, infection versus viral syndrome DOES have HEPATITIS C++, cirrhosis of the liver --> peripheral smear has been ordered and does not show significant abnormalities --> Medications have been reviewed --> Continue to monitor for improvement, trend cbc --> Hep panel confirms Hep C+ --> US abd ordered to r/o cirrhosis and hepatosplenomegaly (to confirm it) --> consider other causes, infections that could contribute --> reverse isolation if ANC is <2000 --> Give neupogen if ANC <1000 --> Transfuse if hgb <7, with 1 unit prbc # Liver masses noted in the liver on us --> consider ct scan to eval for malignancy --> afp has been ordered --> ct of the abd/pelvis with iv contrast once cr has improved --> likely will need outpatient eval as well if requires treatment # Anemia due to folic acid deficiency low levels --> folic acid started as per nephro # Laceration without foreign body of left eyelid and periocular area, initial encounter --> seen by neuro, no further recs, recovering # Upper extremity weakness --> likely due to weakness # Dehydration --> IVF have been started # UTI (urinary tract infection) --> on abx # IVDU hx --> currently off any # Hepatitis C per records --> with cirrhosis # Electrolyte abnormality as per nephro --> per renal recs The timing of this note does not necessarily reflect the time of the patient was seen. Greatly appreciate consultation! Subjective Constitutional: Denies: no symptoms, chills, diaphoresis, fever, malaise, weakness, other HEENT: Denies: no symptoms, eye pain, blurred vision, tearing, double vision, ear pain, ear discharge, nose pain, nose congestion, throat pain, throat swelling, mouth pain, mouth swelling, other Cardiovascular: Denies: no symptoms, chest pain, edema, irregular heart rate, lightheadedness, palpitations, syncope, other Respiratory: Denies: no symptoms, cough, orthopnea, shortness of breath, SOB with excertion, SOB at rest, sputum, stridor, wheezing, other Gastrointestinal/Abdominal: Denies: no symptoms, abdomen distended, abdominal pain, black stools, tarry stools, blood in stool, constipated, diarrhea, difficulty swallowing, nausea, poor appetite, poor fluid intake, rectal bleeding , vomiting, other Genitourinary: Denies: no symptoms, burning, discharge, frequency, flank pain, hematuria, incontinence, pain, urgency, other Neurologic/Psychiatric: Denies: no symptoms, anxiety, depressed, emotional problems, headache, numbness, paresthesia, pre-existing deficit, seizure, tingling, tremors, weakness, other Endocrine: Denies: no symptoms, excessive sweating, flushing, intolerance to cold, intolerance to heat, increased hunger, increased thirst, increased urine, unexplained weight gain, unexplained weight loss, other Hematologic/Lymphatic: Denies: no symptoms, anemia, easy bleeding, easy bruising, other Allergies: Coded Allergies: No Known Allergies (Unverified , 02/10/19) Subjective 02/14: no events reported, no f/c, cbc was reviewed, no bleeding Objective Last 24 Hour Vital Signs Date Time Temp Pulse Resp B/P (MAP) Pulse Ox O2 Delivery O2 Flow Rate FiO2 02/14/19 11:38 53 02/14/19 09:00 Nasal Cannula 2.0 02/14/19 08:16 Nasal Cannula 2.0 28 02/14/19 08:16 62 18 96 Nasal Cannula 2.0 02/14/19 08:16 96 Nasal Cannula 2.0 28 02/14/19 07:56 97.6 50 20 151/74 (99) 99 02/14/19 07:40 51 02/14/19 04:00 98.5 76 16 119/56 (77) 96 02/14/19 04:00 52 02/14/19 00:00 56 58 02/14/19 00:00 60 02/14/19 00:00 98.6 58 16 116/64 (81) 98 02/13/19 21:58 Nasal Cannula 2.0 28 02/13/19 21:58 59 18 97 Nasal Cannula 2.0 28 02/13/19 21:58 97 Nasal Cannula 2.0 28 02/13/19 21:00 Nasal Cannula 2.0 02/13/19 20:00 97.9 59 18 118/57 (77) 96 02/13/19 20:00 58 02/13/19 16:00 98.6 71 22 117/69 (85) 97 02/13/19 16:00 55 Intake and Output 02/13/19 02/14/19 19:00 07:00 Output Total 200 ml 300 ml Balance -200 ml -300 ml Output Urine Total 200 ml 300 ml Laboratory Tests 02/13/19 18:50: Hepatitis A IgM Antibody Negative, Hepatitis B Surface Antigen Negative, Hepatitis B Core IgM Antibody Negative, Hepatitis C Antibody >11.0H, HIV (1&2) Antibody Rapid Negative Height (Feet): 5 Height (Inches): 2.00 Weight (Pounds): 140 Objective Physical Exam General Appearance: A+O x3, NAD HEENT: normocephalic, atraumatic Neck: non-tender, normal alignment Respiratory/Chest: chest wall non-tender, lungs clear Cardiovascular/Chest: normal peripheral pulses, normal rate Abdomen: normal bowel sounds, non tender Extremities: normal range of motion Barber Estrada MD February 14, 2019 15:18
--- NOTE | 2019-02-14 15:28 | NUR ---
NURSE NOTES: WOUND CARE NOTES:Pt presented on admission with laceration L temporal. no erythema or exudate noted. Sacrum pink and blanchable. Dark brown skin discoloration noted to R and Ischial areas .Each site without erythema or tenderness when palpated. Pt verbalized having skin discoloration for many years. bilat heels are boggy but blanchable and non-tender when palpated. No evidence of skin breakdown to other bony prominences noted. Tx.Plan: Apply Moisture Barrier Paste to sacrum. Cover with Optifoam drsg. Change every 3 days and prn. Apply Cavilon Skin Barrier to each heel. Cover each heel with Optifoam drsg. Change every 7 days and prn. Reposition at least every 2hours or as tolerated. Off-load heels with pillow.
--- NOTE | 2019-02-14 15:38 | NUR ---
NURSE NOTES: Spoke to ROSANNA Redding from [facility]. Gave report on patient and ETA of 15:45.
--- NOTE | 2019-02-14 16:26 | Cardiac Electrophysiology PN ---
Assessment/Plan Assessment/Plan 1. Syncope, etiology is not clear at this time. Ruled out for [place]. Echo EF 60% 2. History of heroin use and chronic pain syndrome. On Morphine,methadone, and Neurontin per Pain Management. 3. History of hepatitis C and cirrhosis. ARNOLD RN Subjective Subjective No CP or SOB . No events Objective Last 24 Hour Vital Signs Date Time Temp Pulse Resp B/P (MAP) Pulse Ox O2 Delivery O2 Flow Rate FiO2 02/14/19 15:16 97.4 56 20 120/55 (76) 95 02/14/19 12:00 97.2 56 18 139/73 (95) 99 02/14/19 11:38 53 02/14/19 09:05 56 02/14/19 09:00 Nasal Cannula 2.0 02/14/19 09:00 55 02/14/19 08:16 Nasal Cannula 2.0 28 02/14/19 08:16 62 18 96 Nasal Cannula 2.0 28 02/14/19 08:16 96 Nasal Cannula 2.0 28 02/14/19 07:56 97.6 50 20 151/74 (99) 99 02/14/19 07:40 51 02/14/19 04:00 98.5 76 16 119/56 (77) 96 02/14/19 04:00 52 02/14/19 00:00 56 58 02/14/19 00:00 60 02/14/19 00:00 98.6 58 16 116/64 (81) 98 02/13/19 21:58 Nasal Cannula 2.0 28 02/13/19 21:58 59 18 97 Nasal Cannula 2.0 28 02/13/19 21:58 97 Nasal Cannula 2.0 28 02/13/19 21:00 Nasal Cannula 2.0 02/13/19 20:00 97.9 59 18 118/57 (77) 96 02/13/19 20:00 58 Intake and Output 02/13/19 02/14/19 19:00 07:00 Output Total 200 ml 300 ml Balance -200 ml -300 ml Output Urine Total 200 ml 300 ml Laboratory Tests Test 02/13/19 18:50 Hepatitis A IgM Antibody Negative (Negative) Hepatitis B Surface Antigen Negative (Negative) Hepatitis B Core IgM Antibody Negative (Negative) Hepatitis C Antibody >11.0 s/co ratio HIV (1&2) Antibody Rapid Negative (NEGATIVE) Objective HEAD AND NECK: No JVD LUNGS: Clear. CARDIOVASCULAR: Regular S1 and S2 with no gallop or murmur. ABDOMEN: Soft. EXTREMITIES: No edema. Robbie Gonzalez MD February 14, 2019 16:26
--- NOTE | 2019-02-14 16:42 | NUR ---
NURSE NOTES: [facility] arrived at 4:42pm. Patient is AAOx4. Patient is breathing even and unlabored on 2L NC. Central line was removed at 15:45pm. Right neck pressure dressing is intact and dry. Patient monitor and ID band was removed. Patient is going to [facility]. Belonging checklist done. Discharge paperwork done. Patient will leave on gurney to facility on EMS ambulance. 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
--- NOTE | 2019-02-15 00:44 | Neurology Progress Note ---
Interim History Interim History ROS Limited/Unobtainable: No Complaints: Head Injury Events: Stable MS Interim History This visit was conducted on February 14, [address] Abdelrahman Altamirano. Review of Systems All Systems: reviewed and negative except above Objective Physical Exam Last Vital Signs Date Time Temp Pulse Resp B/P (MAP) Pulse Ox O2 Delivery O2 Flow Rate FiO2 02/14/19 15:16 97.4 56 20 120/55 (76) 95 02/14/19 09:00 Nasal Cannula 2.0 02/14/19 08:16 28 General: well developed, no acute distress, other - Thin Head: normocophalic Neck: no rigidity EENT: benign Neurologic Exam Mental Status: awake, alert, oriented x4, normal cognition, good mathematical skills, normal recent memory, normal remote memory, preserved visuospatial function Speech: normal speech, no dysarthia Language: normal language, no aphasia Cranial Nerve II: fundus normal, visual aguirre, no papilledema Cranial Nerves III, IV, : PERRLA, EOMI Cranial Nerve V: normal facial sensations Cranial Nerve VIII: normal hearing Cranial Nerve IX: normal palate elevation Cranial Nerve X: no voice hoarseness Cranial Nerve XI: SCM symmetric, trapezii function normal Cranial Nerve XII: tongue midline, no tongue atrophy/fasciculations Motor System: other - Baseline contractures and strength unchanged/ stable Sensory: normal pinprick, normal light touch Deep Tendon Reflexes: 1+ bicep (L), 1+ bicep (R), 1+ tricep (L), 1+ tricep (R) , 1+ brachioradialis (L), 1+ brachioradialis (R), 1+ knee (L), 1+ knee (R), 1+ ankle (L), 1+ ankle (R) Reflexes: flexor plantar (L), flexor plantar (R); extensor plantar (L), extensor plantar (R) Impression/Recommendations Problems: (1) COPD (chronic obstructive pulmonary disease) (2) Head trauma (3) Upper extremity weakness (4) Eyebrow laceration (5) Dehydration (6) Anemia Status: stable, progressing, tolerating diet Diagnostic Impression Exam improved- previously drowsy and now alert/ oriented Continue Q4 Hour neuro obs Patient refusing MRI Brain at this time. Maintain Na 135-145 HgB> 8 Correct deficiencies - iron , folate etc PT eval for D/C planning SBP<140 No changes to Gabapentin dose at this time. Stable for discharge from a neurological perspective. Recommendations Continue Q4 hr neuro obs No correlation between neuro exam and current ammonia levels. Continue to monitor No plan changes or interventions suggested at this time. Maintain Sleep hygiene while awaiting transfer back to SNF Svetlana Manzo N.P. February 15, 2019 00:44
--- NOTE | 2019-02-15 17:46 | Discharge Summary ---
Discharge Summary Discharge Summary _ DATE OF ADMISSION: 02/10/2019 DATE OF DISCHARGE: 02/14/2019 DISCHARGED BY: Dr Whyte REASON FOR ADMISSION: 72 years old female with past medical history of hypertension, COPD, hepatitis C , cirrhosis, history of IV drug abuse/heroine, presented status post fall with laceration to left side of her face. She reported aching pain to the left side of her face, rating as 8 out of 10 on a scale 1-10. She denied loss of consciousness. Vital signs reveal hypotension. Laboratory work-up revealed no leukocytosis, electrolytes stable. Urinalysis with pyuria and bacteria. Chest x-ray revealed evidence of COPD. EKG revealed sinus rhythm, no acute ischemic changes. Troponin negative. Albumin 2.1. Urine toxicology screen was negative. Lactic acid 1.7. CT of the head revealed no acute intracranial bleeding, mass-effect or edema. Mild atrophy of the brain noted. Nonspecific white matter hypoattenuation, probably due to chronic small vessel disease. Left parietal scalp contusion. Patient received bolus of IV fluids with improvement in blood pressure. Patient pancultured and started on empiric antibiotic for urinary tract infection. Analgesia provided. Laceration to left eyebrow was repaired with Dermabond. Patient admitted to telemetry floor for further management. CONSULTANTS: head packager Dr. Elliott neurologist Dr. Altamirano fitness and wellness instructor Dr. Bolden shift production supervisor/oncologist Dr. Estrada pain specialist HOSPITAL COURSE: Patient initially was hydrated. Renal parameters and electrolytes were closely monitored. Potassium, magnesium and phosphorus were replaced as per fitness and wellness instructor. Nephrotoxins were avoided. Urinalysis with +3 protein. 24 hours urine for total protein revealed minimal protein. Urine culture revealed Serratia. Patient was continued on antibiotics. Prior to discharge all electrolytes stable. Renal parameters stable. Cardiology followed-up. Echocardiogram revealed preserved ejection fraction of 60% with mild left ventricular hypertrophy. No evidence of pericardial effusion. No evidence of wall motion abnormality. Right ventricular systolic pressure of 13. 9 Lipid panel revealed LDL 103. Low-fat cardiac diet provided TSH within normal limits. Serial troponin were negative. EKG revealed no acute ischemic changes. Patient was ruled out for acute UT. No evidence of arrhythmia on telemetry. Orthostatic vital signs revealed no evidence of orthostatic changes. Venous duplex bilateral lower extremity revealed no evidence of acute DVT. DVT prophylaxis provided. Supplemental oxygen was on board as needed to keep pulse oximetry above 92%. Left shoulder x-ray revealed no evidence of acute injury. X-ray of thoracic spine revealed mild degenerative changes. X-ray of cervical spine reveal multilevel cervical fusion. Anterolisthesis at C3-4. X-ray of lumbar spine revealed no obvious acute injury. Pain management was addressed as per pain specialist recommendations. Neurologist followed. MRI of the brain demonstrated no acute intracranial pathology. Mild atrophy and evidence of chronic small vessel disease involving white matter tracts. Neuro exam improved : previously drowsy patient appeared alert and oriented. Neuro-checks continued. Neurologist recommended to correct metabolic deficiencies, including correct metabolic deficiencies and electrolytes as needed. Patient started to work with physical therapist. Ammonia minimally elevated at 39. Per neurologist, no correlation between clinical exam and ammonia level. No plan for intervention suggested at this time. Neurologist recommended maintain sleep hygiene. Habilitation Training Specialist followed. Patient with evidence of pancytopenia. Hepatitis panel confirmed hepatitis C. HIV test nonreactive. Anemia work-up revealed evidence of anemia of chronic disease and folic acid deficiency. Folic acid started. Prior to discharge WBC 4.0, hemoglobin 10, hematocrit 31.8, platelets 122. Abdominal ultrasound demonstrated multiple liver masses. Further evaluation with CT was recommended to evaluate for malignancy. Chronic liver disease/ cirrhosis noted. Suspected portal hypertension , given splenomegaly. Nonobstructive stones suspected within the left kidney. Patient declined CT of the abdomen and pelvis to rule out for malignancy. CT scan can be done as an outpatient when patient agreed. Central line was discontinued prior to discharge. Bowel regimen instituted. Supportive care provided. GI prophylaxis provided. Per cardiology, syncope with unclear etiology. Patient however declined loss of consciousness. If indeed real syncopal episode, could have been possibly due to dehydration and urinary tract infection. Patient clinically stabilized and was ready for discharge to long term facility for continuation of care FINAL DIAGNOSES: Status post fall Possible syncopal episode, etiology unclear, possible due to dehydration and UTI Head trauma with eyebrow laceration Status post repair of left eyebrow laceration with Dermabond COPD UTI with Serratia History of IV drug abuse/heroine Hypertension Hepatitis C Cirrhosis Electrolyte abnormalities Pancytopenia Anemia of chronic disease Folic acid deficiency Liver masses Thalamic pain syndrome DISCHARGE MEDICATIONS: See Medication Reconciliation list. DISCHARGE INSTRUCTIONS: Patient was discharged to the long term facility. Follow up with medical doctor at the facility. I have been assigned to dictate discharge summary for this account. I was not involved in the patient's management. Candice Nettles NP February 15, 2019 17:46
== END 2019-02-14 16:45 | DRG 914 ==
LOC: EDBD 01:13 → EMR 01:51 → 2W 02:17 → EDBEDREQ 02:53 → 2E 15:00
PROC: 0HQ1XZZ Repair Face Skin, External Approach (ICD-10-PCS; principal; 2019-02-10)
DX: S09.90XA Unspecified injury of head, initial encounter (principal); J44.1 Chronic obstructive pulmonary disease with (acute) exacerbation; N39.0 Urinary tract infection, site not specified; D61.818 Other pancytopenia; I69.351 Hemiplegia and hemiparesis following cerebral infarction affecting right dominant side; S01.112A Laceration without foreign body of left eyelid and periocular area, initial encounter; W19.XXXA Unspecified fall, initial encounter; Y92.129 Unspecified place in nursing home as the place of occurrence of the external cause; Z87.891 Personal history of nicotine dependence; G89.0 Central pain syndrome; K21.9 Gastro-esophageal reflux disease without esophagitis; F11.21 Opioid dependence, in remission; R55 Syncope and collapse; E86.0 Dehydration; B96.89 Other specified bacterial agents as the cause of diseases classified elsewhere; I10 Essential (primary) hypertension; K74.60 Unspecified cirrhosis of liver; E87.8 Other disorders of electrolyte and fluid balance, not elsewhere classified; D63.8 Anemia in other chronic diseases classified elsewhere; E53.8 Deficiency of other specified B group vitamins; R16.0 Hepatomegaly, not elsewhere classified; M54.2 Cervicalgia; M54.9 Dorsalgia, unspecified; M24.50 Contracture, unspecified joint; D50.9 Iron deficiency anemia, unspecified; B19.20 Unspecified viral hepatitis C without hepatic coma; E88.09 Other disorders of plasma-protein metabolism, not elsewhere classified
CPT/HCPCS: 36415; 70450; 70551; 71045; 72020; 72040; 72070; 76700; 80053; 80061; 80307; 81003; 81050; 82140; 82533; 82550; 82607; 82728; 82746; 82977; 83036; 83540; 83550; 83605; 83690; 83735; 83880; 84100; 84156; 84443; 84484; 84550; 85025; 85610; 85730; 86140; 86703; 86705; 86709; 86803; 87081; 87086; 87181; 87340; 93005; 93306; 93970; 94640; 94664; 94760; 96365; 96375; 99285; J2405; J7620; J8499

== ENCOUNTER 2019-12-04 12:50 | Inpatient (IN) | payer MEDICARE, MEDICAID ==
[~2019-12-04] VITALS: Ht 162.6 cm; Wt 64.0 kg
[~2019-12-04 12:50] MED LIST: ACETAMINOPHEN325 M1 ORAL; ALBUTEROL2.5 MG/3 M INH; BISACODYL10 M1 RC; CALMOSEPTINE O3.5 G1 TP; DOCUSATE SODIU100 MG ORAL; GABAPENTIN100 MG ORAL; METHADONE HCL10 MG ORAL; MULTIVITAMINS1 EAC2 ORAL; NITROSTAT0.4 M1 SL; PEPCID AC20 M2 PO; SEROPHENE50 MG PO; SEROQUEL50 MG ORAL; SERTRALINE HCL25 MG ORAL; VENTOLIN HFA18 GM INH; ZOLOFT50 MG ORAL
[2019-12-04 13:10] VITALS: BP 88/47
[2019-12-04] MEDS ORDERED: CRANBERRY450 M4 PO (13:17)
[2019-12-04] MEDS ORDERED: LACTULOSE10 GM/155 PO (13:17)
[2019-12-04] MEDS ORDERED: DAILY VITAMIN1 EAC2 ORAL (13:17)
[2019-12-04] MEDS ORDERED: OMEPRAZOLE20 M2 ORAL (13:17)
--- NOTE | 2019-12-04 13:58 | Emergency Room Report ---
History of Present Illness General Chief Complaint: Flu Like Symptoms Source: EMS Present Illness HPI 74-year-old female history of stroke, COPD, cirrhosis, hepatitis C, presented for fever, cough and flulike symptoms. Patient presented from shelter facility. She has been sick for the past 2 to 3 days. Developed a fever today. Laboratory studies were done showed a white blood cell count of 16,000. No reported vomiting or diarrhea. Patient is a poor historian Allergies: Coded Allergies: CLONIDINE (Verified Allergy, Unknown, 12/04/19) ERYTHROMYCIN BASE (Verified Allergy, Unknown, 12/04/19) Patient History Past Medical History: see triage record Reviewed Nursing Documentation: PMH: Agreed; PSxH: Agreed Nursing Documentation-PMH Hx Cardiac Problems: Yes - hemiplegia Hx Hypertension: Yes Hx Pacemaker: No Hx Asthma: No Hx COPD: Yes Hx Diabetes: No Hx Cancer: No Hx Gastrointestinal Problems: Yes Hx Dialysis: No Hx Neurological Problems: Yes - Cognitive Communication Deficit Hx Cerebrovascular Accident: Yes Hx Transient Ischemic Attacks: No Hx Dementia: No Hx Alzheimer's Disease: No Hx Parkinson's Disease: No Hx Meningitis: No Hx Encephalitis: No Hx Seizures: No Hx Epilepsy: No Hx Multiple Sclerosis: No Hx Cerebral Palsy: No Hx Amyotrophic Lat Sclerosis: No Hx Guillian-[place] Syndrome: No Hx Paralysis: Yes - Right Hemiplegia Hx Peripheral Neuropathy: Yes - Right hemiparesis Hx Spinal Cord Injury: No Hx Head Trauma: No Hx Traumatic Brain Injury: No Hx Memory Loss: No Hx Concentration Difficulty: No Hx Speech Problem: No Hx Tremors: No Hx Vertigo: No Hx Dizziness: Yes - Unspecified lack of coordination Hx Syncope: Yes Hx Headaches: No Hx Dysphasia: No Hx Numbness: No Hx Weakness: Yes - Muscle weakness Hx Fatigue: No Hx Neurologic Surgery: No Hx Brain Shunt: No Review of Systems All Other Systems: negative except mentioned in HPI Physical Exam Vital Signs Date Time Temp Pulse Resp B/P (MAP) Pulse Ox O2 Delivery O2 Flow Rate FiO2 12/04/19 12:58 97.0 94 20 88/47 (61) 97 Room Air Sp02 EP Interpretation: reviewed, normal General Appearance: cachetic, Chronically Ill Head: normocephalic, atraumatic Eyes: bilateral eye PERRL, bilateral eye EOMI ENT: hearing grossly normal, moist mucus membranes Neck: full range of motion, supple Respiratory: no rhonchi, no respiratory distress, no retraction, no wheezing, decreased breath sounds Cardiovascular #1: normal peripheral pulses, regular rate, rhythm, no murmur Gastrointestinal: non tender, soft, non-distended, no guarding Musculoskeletal: other - RUE contracted Neurologic: alert, no focal defects, other - oriented to name and place Skin: normal color, warm/dry Medical Decision Making Diagnostic Impression: Primary Impression: Influenza-like symptoms ER Course Differential included but not limited to viral syndrome, pneumonia, did consider coronavirus infection. CDC was contacted. They recommended septic work-up and will follow-up on laboratory results to give recommendations on testing. Septic work-up initiated in the ER. IV fluids started. Will sign out to oncoming physician to follow-up on diagnostics and final disposition. EKG Diagnostic Results Other Impression Sinus bradycardia, rate of 59, no ST changes, impression sinus bradycardia Last Vital Signs Date Time Temp Pulse Resp B/P (MAP) Pulse Ox O2 Delivery O2 Flow Rate FiO2 12/04/19 12:58 97.0 94 20 88/47 (61) 97 Room Air Disposition: ADMITTED INPATIENT Condition: Serious Signed Out To: Dr. Dejesus Referrals: Geoffrey Whyte MD (PCP) Luis Cesar M.D. Dec 04, 2019 13:58
--- NOTE | 2019-12-04 14:05 | Diagnostic Imaging Report ---
Indication: Dyspnea Comparison: 02/10/2019 A single view chest radiograph was obtained. Findings: The left lung base is obscured. No definite infiltrate identified. Heart size is normal. Previous right jugular line was removed. Bones are osteopenic. IMPRESSION: No acute findings appreciated. Limited visualization of the lung bases
[2019-12-04 14:45] LABS: BASOPHILS % (AUTO) 0.5 % (0.0-2.0); EOSINOPHILS % (AUTO) 0.7 % (0.0-3.0); HEMATOCRIT 35.8 % (37.0-47.0); HEMOGLOBIN 11.6 G/DL (12.0-16.0); LYMPHOCYTES % (AUTO) 15.7 % (20.0-45.0); MEAN CORPUSCULAR VOLUME 86 FL (80-99); MONOCYTES % (AUTO) 4.1 % (1.0-10.0); PLATELET COUNT 174 K/UL (150-450); RED BLOOD COUNT 4.16 M/UL (4.20-5.40); WHITE BLOOD COUNT 14.2 K/UL (4.8-10.8)
[2019-12-04 15:00] VITALS: BP 90/50
[2019-12-04 15:02] LABS: APPEARANCE,URINE TURBID; BILIRUBIN, URINE NEGATIVE (NEGATIVE); COLOR,URINE BROWN; GLUCOSE, URINE (UA) NEGATIVE (NEGATIVE); KETONES,URINE 1+ (NEGATIVE); LEUKOCYTE ESTERASE ,URINE 3+ (NEGATIVE); NITRITE,URINE NEGATIVE (NEGATIVE); PH,URINE 7 (4.5-8.0); PROTEIN,URINE 3+ (NEGATIVE); UROBILINOGEN,URINE 4 MG/DL (0.0-1.0)
[2019-12-04] MEDS ORDERED: cefTRIAXone 1 GM in NS 55 ML IVPB ONE (16:00)
[2019-12-04 16:26] VITALS: BP 107/56
[2019-12-04 16:27] LABS: ANION GAP 7 mmol/L (5-15); BLOOD UREA NITROGEN 23 mg/dL (7-18); CALCIUM 7.6 MG/DL (8.5-10.1); CARBON DIOXIDE 25 MMOL/L (21-32); CHLORIDE 104 MMOL/L (98-107); POTASSIUM 3.4 MMOL/L (3.5-5.1); SODIUM 136 MMOL/L (136-145)
[2019-12-04 16:40] LABS: ALANINE AMINOTRANSFERASE < 6 U/L (12-78); ALBUMIN 1.3 G/DL (3.4-5.0); ALBUMIN/GLOBULIN RATIO 0.2 (1.0-2.7); ALKALINE PHOSPHATASE 143 U/L (46-116); ASPARTATE AMINO TRANSFERASE 25 U/L (15-37); BILIRUBIN,TOTAL 0.5 MG/DL (0.2-1.0); CKMB 1.8 NG/ML (0.0-3.6); CREATINE KINASE 40 U/L (26-308)
[2019-12-04] MEDS ORDERED: Fleet's Enema 133ml RECTAL ONE (17:15)
[2019-12-04 19:45] VITALS: BP 110/61
[2019-12-04 21:00] VITALS: BP 99/58
--- NOTE | 2019-12-04 21:15 | Consultation ---
DATE OF CONSULTATION: 12/04/2019 INFECTIOUS DISEASES CONSULTATION CONSULTING PHYSICIAN: Arcadio Gutierrez M.D. REASON FOR CONSULTATION: Pyuria, urinary tract infection, COPD exacerbation. HISTORY OF PRESENT ILLNESS: This is a 75-year-old white female admitted [facility] a [facility] facility complaining of coughing, also had a low-grade fever x1, temperature was 100.6, had leukocytosis of 14.2, but so far no fever in the hospital. Blood pressure is in the lower side 88/47. PAST MEDICAL HISTORY: Significant for cirrhosis, hepatitis C, hypertension, right wrist contracture, major depression, CVA and hemiplegia. ALLERGIES: To codeine and erythromycin. MEDICATIONS: I ordered a dose of Rocephin. SOCIAL HISTORY: half-way resident. Single. History of smoking, drug abuse, was on methadone. REVIEW OF SYSTEMS: The patient states has no fever, no chills, has no complaints. PHYSICAL EXAMINATION: VITAL SIGNS: Temperature 97, blood pressure is 90/50, pulse 54. GENERAL APPEARANCE: Seems to be thin. HEAD AND NECK: No teeth or denture. Otherwise no oral lesion. HEART: Normal rate. LUNGS: Decreased sounds bilaterally. ABDOMEN: Soft and nontender. EXTREMITIES: No edema. She has muscle atrophy. NEUROLOGIC: Awake, alert, responsive. LABORATORY AND DIAGNOSTIC DATA: WBC 14.2, hemoglobin 11.6, hematocrit 35.8, platelets 174,000. UA, wbc's too numerous to count, rbc's 30 to 40, leukocyte esterase 2+. Chest x-ray was negative for pneumonia IMPRESSION: COPD. Pyuria, may have UTI, hepatitis C, cirrhosis, major depression, history of drug abuse, and nicotine dependence. RECOMMENDATION: Continue ceftriaxone. We will follow the culture and clinical course. At the end of my exam, I thank Dr. Whyte for involving me in the care of this patient. Arcadio Gutierrez M.D. DR: Gerber JOB#: [id number] CC: TARA
[2019-12-04] MEDS ORDERED: Lactulose 20gm/30ml UDC ORAL PRN (21:45)
[2019-12-04] MEDS ORDERED: Nitroglycerin Subl 0.4mg tab SL PRN (22:00)
[2019-12-04] MEDS: Albuterol ud Inhalation HHN PRN (23:31)
[2019-12-05] VITALS: BP 142/65
[2019-12-05 04:00] VITALS: BP 138/61
[2019-12-05 05:22] LABS: BASOPHILS % (AUTO) 0.3 % (0.0-2.0); EOSINOPHILS % (AUTO) 0.7 % (0.0-3.0); HEMATOCRIT 31.9 % (37.0-47.0); HEMOGLOBIN 10.2 G/DL (12.0-16.0); MEAN CORPUSCULAR VOLUME 87 FL (80-99); MONOCYTES % (AUTO) 4.2 % (1.0-10.0); NEUTROPHILS % (AUTO) 83.9 % (45.0-75.0); PLATELET COUNT 163 K/UL (150-450); RED BLOOD COUNT 3.68 M/UL (4.20-5.40); RED CELL DISTRIBUTION WIDTH 15.1 % (11.6-14.8)
[2019-12-05 05:55] LABS: ALANINE AMINOTRANSFERASE < 6 U/L (12-78); ALBUMIN 1.3 G/DL (3.4-5.0); ALBUMIN/GLOBULIN RATIO 0.2 (1.0-2.7); ALKALINE PHOSPHATASE 144 U/L (46-116); ANION GAP 9 mmol/L (5-15); ASPARTATE AMINO TRANSFERASE 27 U/L (15-37); BILIRUBIN,TOTAL 0.4 MG/DL (0.2-1.0); BLOOD UREA NITROGEN 19 mg/dL (7-18); CARBON DIOXIDE 22 MMOL/L (21-32); CHLORIDE 106 MMOL/L (98-107); CREATININE 0.9 MG/DL (0.55-1.30); POTASSIUM 3.8 MMOL/L (3.5-5.1); SODIUM 137 MMOL/L (136-145)
[2019-12-05 08:00] VITALS: BP 93/56
[2019-12-05] MEDS: Sertraline 50mg tab ORAL SCH (08:20)
[2019-12-05] MEDS ORDERED: Multivitamin w/Minerals tab ORAL SCH (09:00)
[2019-12-05 12:00] VITALS: BP 98/54
--- NOTE | 2019-12-05 13:40 | Diagnostic Imaging Report ---
Indication: Bilateral leg pain Technique: Grayscale and duplex images of the bilateral lower extremity veins Comparison: 02/10/2019 Findings: Bilaterally, grayscale and duplex images demonstrate no evidence of intraluminal thrombus. Normal phasic Doppler waveforms, demonstrating normal augmentation response and no evidence of valvular insufficiency. Greater saphenous vein(s) and tibial veins are patent. Normal compressibility. Impression: Negative for evidence of lower extremity deep venous thrombosis bilaterally
[2019-12-05 16:00] VITALS: BP 88/44
--- NOTE | 2019-12-05 16:11 | Consultation ---
History of Present Illness General Date patient seen: Dec 05, 2019 Chief Complaint: Flu Like Symptoms Present Illness HPI This is a very pleasant 74-year-old female with multiple medical comorbidities who is a assisted resident that presented to [facility] for evaluation of fever, leukocytosis, abnormal labs. Patient was admitted further care and management. On admission identified to have abnormal labs and multiple decubitus ulcers requiring care and management. Furthermore patient with malnutrition failure to thrive. Surgery called to evaluate and assist with care. Patient seen, patient evaluated, chart reviewed Allergies: Coded Allergies: CLONIDINE (Verified Allergy, Unknown, 12/04/19) ERYTHROMYCIN BASE (Verified Allergy, Unknown, 12/04/19) Medication History Scheduled Docusate Sodium* (Docusate Sodium*), 100 MG ORAL ONCE, (Reported) Famotidine (Pepcid Ac), 20 MG PO BID, (Reported) Gabapentin* (Gabapentin*), 100 MG ORAL THREE TIMES A DAY, (Reported) Methadone Hcl* (Methadone*), 10 MG ORAL Q8HR, (Reported) Multivitamin With Minerals (Daily Vitamin Formula-Minerals), 1 TAB ORAL DAILY, ( Reported) Multivitamins* (Multivitamins*), 1 TAB ORAL DAILY, (Reported) Omeprazole (Omeprazole), 20 MG ORAL DAILY, (Reported) Quetiapine Fumarate (Seroquel), 12.5 MG ORAL DAILY, (Reported) Sertraline Hcl* (Zoloft*), 50 MG ORAL DAILY, (Reported) Scheduled PRN Acetaminophen* (Acetaminophen 325MG Tablet*), 650 MG ORAL Q6H PRN for Pain Scale (3-5), (Reported) Albuterol Sulfate* (Albuterol Sulfate Hhn*), 3 ML INH Q4H PRN for Shortness of Breath, (Reported) Bisacodyl (Bisacodyl), 10 MG RC for Constipation, (Reported) Nitroglycerin (Nitrostat), 0.4 MG SL Q5M X3 DOSES PRN for CHEST PAIN, (Reported) Miscellaneous Medications Cranberry Fruit Concentrate (Cranberry), 450 MG PO, (Reported) Lactulose (Lactulose), 60 ML PO, (Reported) Menthol/Zinc Oxide (Calmoseptine Ointment), 3.5 GM TP, (Reported) Patient History Limited by: medical condition History Provided By: Medical Record, PMD Healthcare decision maker no Resuscitation status Full Code Advanced Directive on File No Past Medical/Surgical History Past Medical/Surgical History: (1) Electrolyte abnormality (2) Hypoalbuminemia (3) Proteinuria (4) COPD (chronic obstructive pulmonary disease) (5) GERD (gastroesophageal reflux disease) (6) Anemia (7) Folate deficiency (8) Iron (Fe) deficiency anemia (9) Influenza-like symptoms Review of Systems All Other Systems: negative except mentioned in HPI Physical Exam General Appearance: no apparent distress, alert Lines, tubes and drains: peripheral HEENT: atraumatic, anicteric, mucous membranes moist Neck: supple, normal inspection Respiratory/Chest: no respiratory distress, no accessory muscle use, decreased breath sounds Cardiovascular/Chest: normal rate Abdomen: soft, no organomegaly, no mass Extremities: non-tender, normal capillary refill Skin Exam: warm/dry, other Neurologic: alert Last 24 Hour Vital Signs Date Time Temp Pulse Resp B/P (MAP) Pulse Ox O2 Delivery O2 Flow Rate FiO2 12/05/19 12:00 98.7 65 20 98/54 (69) 98 12/05/19 12:00 Nasal Cannula 2.0 12/05/19 12:00 54 12/05/19 12:00 2.0 12/05/19 08:00 Nasal Cannula 2.0 12/05/19 08:00 2.0 12/05/19 08:00 73 12/05/19 08:00 98.3 70 21 93/56 (68) 97 12/05/19 04:00 Nasal Cannula 2.0 12/05/19 04:00 97.9 71 24 138/61 (86) 97 12/05/19 04:00 70 12/05/19 02:12 2.0 12/05/19 00:00 98.8 24 142/65 (90) 97 12/05/19 00:00 Nasal Cannula 2.0 12/05/19 00:00 2.0 12/05/19 00:00 72 12/04/19 23:32 67 18 100 Nasal Cannula 2.0 28 68 18 97 12/04/19 21:00 Nasal Cannula 2.0 12/04/19 21:00 97.2 64 18 99/58 (72) 100 12/04/19 20:28 97.6 61 16 110/61 97 Nasal Cannula 2.0 12/04/19 19:45 97.6 61 16 110/61 97 Nasal Cannula 2.0 12/04/19 16:26 97.6 59 16 107/56 97 Nasal Cannula 1.5 Intake and Output 12/04/19 12/05/19 19:00 07:00 Intake Total 150 ml Output Total 150 ml Balance 0 ml Other 150 ml Output Urine Total 150 ml # Voids 1 # Bowel Movements 4 Laboratory Tests Test 12/05/19 04:00 White Blood Count 11.0 K/UL (4.8-10.8) H Red Blood Count 3.68 M/UL (4.20-5.40) L Hemoglobin 10.2 G/DL (12.0-16.0) L Hematocrit 31.9 % (37.0-47.0) L Mean Corpuscular Volume 87 FL (80-99) Mean Corpuscular Hemoglobin 27.6 PG (27.0-31.0) Mean Corpuscular Hemoglobin Concent 31.9 G/DL (32.0-36.0) L Red Cell Distribution Width 15.1 % (11.6-14.8) H Platelet Count 163 K/UL (150-450) Mean Platelet Volume 6.4 FL (6.5-10.1) L Neutrophils (%) (Auto) 83.9 % (45.0-75.0) H Lymphocytes (%) (Auto) 11.0 % (20.0-45.0) L Monocytes (%) (Auto) 4.2 % (1.0-10.0) Eosinophils (%) (Auto) 0.7 % (0.0-3.0) Basophils (%) (Auto) 0.3 % (0.0-2.0) Sodium Level 137 MMOL/L (136-145) Potassium Level 3.8 MMOL/L (3.5-5.1) Chloride Level 106 MMOL/L (98-107) Carbon Dioxide Level 22 MMOL/L (21-32) Anion Gap 9 mmol/L (5-15) Blood Urea Nitrogen 19 mg/dL (7-18) H Creatinine 0.9 MG/DL (0.55-1.30) Estimat Glomerular Filtration Rate > 60 mL/min (>60) Glucose Level 60 MG/DL (74-106) L Calcium Level 8.0 MG/DL (8.5-10.1) L Total Bilirubin 0.4 MG/DL (0.2-1.0) Aspartate Amino Transf (AST/SGOT) 27 U/L (15-37) Alanine Aminotransferase (ALT/SGPT) < 6 U/L (12-78) L Alkaline Phosphatase 144 U/L (46-116) H Total Protein 6.6 G/DL (6.4-8.2) Albumin 1.3 G/DL (3.4-5.0) L Globulin 5.3 g/dL Albumin/Globulin Ratio 0.2 (1.0-2.7) L Height (Feet): 5 Height (Inches): 4.00 Weight (Pounds): 114 Medications Current Medications Medications (Trade) Dose Ordered Sig/Yogesh Route PRN Reason Start Time Stop Time Status Last Admin Dose Admin Acetaminophen (Tylenol) 650 mg Q6H PRN ORAL Pain Scale (3-5) 12/04/19 21:45 01/03/20 21:44 12/05/19 11:29 Albuterol Sulfate (Proventil) 2.5 mg Q4H PRN HHN Shortness of Breath 12/04/19 21:45 12/09/19 21:44 12/04/19 23:31 Bisacodyl (Dulcolax) 10 mg DAILYPRN PRN RECTAL Constipation 12/04/19 22:00 01/03/20 21:44 Famotidine (Pepcid) 20 mg BID ORAL 12/05/19 09:00 01/04/20 08:59 12/05/19 08:20 Gabapentin (Neurontin) 100 mg Q8HR ORAL 12/04/19 22:00 01/03/20 21:59 12/05/19 14:28 Lactulose (Cephulac) 20 gm Q6H PRN ORAL Constipation 12/04/19 21:45 01/03/20 21:44 Methadone HCl (Methadone HCl) 10 mg Q8HR ORAL 12/04/19 22:00 12/11/19 21:59 12/05/19 14:28 Multivitamins (Multivitamins) 1 tab DAILY ORAL 12/05/19 09:00 01/04/20 08:59 12/05/19 08:21 Nitroglycerin (Ntg) 0.4 mg Q5MIN X 3 DOSES PRN SL Prn Chest Pain 12/04/19 22:00 01/03/20 21:59 Sertraline HCl (Zoloft) 50 mg DAILY ORAL 12/05/19 09:00 01/04/20 08:59 12/05/19 08:20 Assessment/Plan Problem List: (1) Failure to thrive in adult ICD Codes: R62.7 - Adult failure to thrive SNOMED: 890753472 (2) Malnutrition Assessment & Plan: Patient with significant malnutrition BMI of 19, albumin of 1.3. Patient with wasting identified. Nutritional input appreciated. Continue with diet as tolerated nutritional supplementation We will follow with recommendations ICD Codes: E46 - Unspecified protein-calorie malnutrition SNOMED: 42136991 (3) Leukocytosis Assessment & Plan: Patient with fever and leukocytosis. Hemodynamically stable otherwise. Chest x-ray noted. UA noted. Antibiotics as per infectious disease Leukocytosis trending down Infection unlikely from decubitus ulcer is no signs of active infection and chronic. We will follow with local care and recommendations thank you for let me participate patient's care ICD Codes: D72.829 - Elevated white blood cell count, unspecified SNOMED: 281215592, 850975479 (4) Abnormal LFTs Assessment & Plan: Elevated alk phos AST ALT otherwise normal T bili normal No jaundice Trend will monitor ICD Codes: R94.5 - Abnormal results of liver function studies SNOMED: 657125762 (5) Decubitus skin ulcer Assessment & Plan: Patient presented on admission with a stage III sacral decubitus ulcer at the sacral cleft just above the buttocks. Small area right at the midline cleft approximately 1 cm by few millimeters deep and wide. Some erythema periwound dry skin with sloughing breakdown mild deep tissue injury in the surrounding tissue no significant drainage no foul odor. Slow early breakdown identified and will do full precautions to ensure wound does not open up further and potentially heals as well prior to discharge. Apply skin protectant and surrounding areas, apply OPTi foam dressing change daily and. Saturation strict precautions for incontinence change and dress appropriately with each event. Air soft mattress, turn every 2 hours, offload pressure offload heels with pillows. Area of DTI identified in the heel apply bilateral heel protectors foam dressings thank you will follow with recommendations ICD Codes: L89.90 - Pressure ulcer of unspecified site, unspecified stage SNOMED: 463186579 Cj Mccormick Dec 05, 2019 16:10
--- NOTE | 2019-12-05 16:40 | Infectious Diseases Prog Note ---
Assessment/Plan Assessment/Plan IMPRESSION: COPD. Pyuria, UTI, Hepatitis C, Cirrhosis, major depression, history of drug abuse and nicotine dependence. RECOMMENDATION: Continue ceftriaxone. We will follow the culture Subjective ROS Limited/Unobtainable: Yes Respiratory: Reports: dry cough Cardiovascular: Reports: no symptoms Gastrointestinal/Abdominal: Reports: no symptoms Allergies: Coded Allergies: CLONIDINE (Verified Allergy, Unknown, 12/04/19) ERYTHROMYCIN BASE (Verified Allergy, Unknown, 12/04/19) Objective Vital Signs Last 24 Hour Vital Signs Date Time Temp Pulse Resp B/P (MAP) Pulse Ox O2 Delivery O2 Flow Rate FiO2 12/05/19 16:00 2.0 12/05/19 12:00 98.7 65 20 98/54 (69) 98 12/05/19 12:00 Nasal Cannula 2.0 12/05/19 12:00 54 12/05/19 12:00 2.0 12/05/19 08:00 Nasal Cannula 2.0 12/05/19 08:00 2.0 12/05/19 08:00 73 12/05/19 08:00 98.3 70 21 93/56 (68) 97 12/05/19 04:00 Nasal Cannula 2.0 12/05/19 04:00 97.9 71 24 138/61 (86) 97 12/05/19 04:00 70 12/05/19 02:12 2.0 12/05/19 00:00 98.8 24 142/65 (90) 97 12/05/19 00:00 Nasal Cannula 2.0 12/05/19 00:00 2.0 12/05/19 00:00 72 12/04/19 23:32 67 18 100 Nasal Cannula 2.0 28 68 18 97 12/04/19 21:00 Nasal Cannula 2.0 12/04/19 21:00 97.2 64 18 99/58 (72) 100 12/04/19 20:28 97.6 61 16 110/61 97 Nasal Cannula 2.0 12/04/19 19:45 97.6 61 16 110/61 97 Nasal Cannula 2.0 Height (Feet): 5 Height (Inches): 4.00 Weight (Pounds): 114 General Appearance: no acute distress, cachetic HEENT: mucous membranes moist Respiratory/Chest: lungs clear Cardiovascular: normal rate Abdomen: soft, non tender Extremities: no edema Neurologic/Psychiatric: alert, responsive Musculoskeletal: atrophy Microbiology Date/Time Source Procedure Growth Status 12/04/19 13:45 Nasal Nares - Final Complete 12/04/19 13:45 Nasal Nares - Final Complete 12/04/19 14:49 Urine,Clean Catch Urine Culture - Preliminary Gram Negative Bacillus 1 Resulted 12/04/19 15:33 Rectum Received Laboratory Tests Test 12/05/19 04:00 White Blood Count 11.0 K/UL (4.8-10.8) H Red Blood Count 3.68 M/UL (4.20-5.40) L Hemoglobin 10.2 G/DL (12.0-16.0) L Hematocrit 31.9 % (37.0-47.0) L Mean Corpuscular Volume 87 FL (80-99) Mean Corpuscular Hemoglobin 27.6 PG (27.0-31.0) Mean Corpuscular Hemoglobin Concent 31.9 G/DL (32.0-36.0) L Red Cell Distribution Width 15.1 % (11.6-14.8) H Platelet Count 163 K/UL (150-450) Mean Platelet Volume 6.4 FL (6.5-10.1) L Neutrophils (%) (Auto) 83.9 % (45.0-75.0) H Lymphocytes (%) (Auto) 11.0 % (20.0-45.0) L Monocytes (%) (Auto) 4.2 % (1.0-10.0) Eosinophils (%) (Auto) 0.7 % (0.0-3.0) Basophils (%) (Auto) 0.3 % (0.0-2.0) Sodium Level 137 MMOL/L (136-145) Potassium Level 3.8 MMOL/L (3.5-5.1) Chloride Level 106 MMOL/L (98-107) Carbon Dioxide Level 22 MMOL/L (21-32) Anion Gap 9 mmol/L (5-15) Blood Urea Nitrogen 19 mg/dL (7-18) H Creatinine 0.9 MG/DL (0.55-1.30) Estimat Glomerular Filtration Rate > 60 mL/min (>60) Glucose Level 60 MG/DL (74-106) L Calcium Level 8.0 MG/DL (8.5-10.1) L Total Bilirubin 0.4 MG/DL (0.2-1.0) Aspartate Amino Transf (AST/SGOT) 27 U/L (15-37) Alanine Aminotransferase (ALT/SGPT) < 6 U/L (12-78) L Alkaline Phosphatase 144 U/L (46-116) H Total Protein 6.6 G/DL (6.4-8.2) Albumin 1.3 G/DL (3.4-5.0) L Globulin 5.3 g/dL Albumin/Globulin Ratio 0.2 (1.0-2.7) L Current Medications Medications (Trade) Dose Ordered Sig/Yogesh Route PRN Reason Start Time Stop Time Status Last Admin Dose Admin Acetaminophen (Tylenol) 650 mg Q6H PRN ORAL Pain Scale (3-5) 12/04/19 21:45 01/03/20 21:44 12/05/19 11:29 Albuterol Sulfate (Proventil) 2.5 mg Q4H PRN HHN Shortness of Breath 12/04/19 21:45 12/09/19 21:44 12/04/19 23:31 Bisacodyl (Dulcolax) 10 mg DAILYPRN PRN RECTAL Constipation 12/04/19 22:00 01/03/20 21:44 Ceftriaxone Sodium 2 gm/ Dextrose 55 ml @ 110 mls/hr Q24H IVPB 12/05/19 18:00 12/12/19 17:59 Famotidine (Pepcid) 20 mg BID ORAL 12/05/19 09:00 01/04/20 08:59 12/05/19 08:20 Gabapentin (Neurontin) 100 mg Q8HR ORAL 12/04/19 22:00 01/03/20 21:59 12/05/19 14:28 Lactulose (Cephulac) 20 gm Q6H PRN ORAL Constipation 12/04/19 21:45 01/03/20 21:44 Methadone HCl (Methadone HCl) 10 mg Q8HR ORAL 12/04/19 22:00 12/11/19 21:59 12/05/19 14:28 Multivitamins (Multivitamins) 1 tab DAILY ORAL 12/05/19 09:00 01/04/20 08:59 12/05/19 08:21 Nitroglycerin (Ntg) 0.4 mg Q5MIN X 3 DOSES PRN SL Prn Chest Pain 12/04/19 22:00 01/03/20 21:59 Sertraline HCl (Zoloft) 50 mg DAILY ORAL 12/05/19 09:00 01/04/20 08:59 12/05/19 08:20 Arcadio Gutierrez MD Dec 05, 2019 16:40
[2019-12-05] MEDS ORDERED: cefTRIAXone 2 GM in D5W 55 ML IVPB SCH (18:00)
[2019-12-05 20:00] VITALS: BP 95/58
--- NOTE | 2019-12-05 21:45 | Consultation ---
DATE OF CONSULTATION: 12/05/2019 PULMONARY CONSULTATION HISTORY OF PRESENT ILLNESS: This is an elderly female, who is admitted to the hospital with leukocytosis. She also reports fever and cough. The patient is a [facility] resident with a history of liver cirrhosis, chronic hep C, and COPD. She was sent in with shortness of breath and cough like symptoms. She was being unwell for several days. She also developed a fever. She was noted to have leukocytosis. The patient did not provide any further history. There was no gastrointestinal symptoms or urinary symptoms. ALLERGIES: Clonidine and erythromycin. PREVIOUS MEDICAL HISTORY: Chronic obstructive pulmonary disease, liver cirrhosis, previous CVA, and hep C. HOME MEDICATIONS: Reviewed and reconciled in the chart. REVIEW OF SYSTEMS: Unreliable. PHYSICAL EXAMINATION: GENERAL: Reveals an elderly female. VITAL SIGNS: Blood pressure is 90/40, heart rate is 94, and respirations 20. She is afebrile. HEENT: Unremarkable. LUNGS: Good breath sounds bilaterally. ABDOMEN: Soft. EXTREMITIES: There is no edema. NEUROLOGIC: She has right hemiparesis. LABORATORY TESTING: Laboratory testing shows white count of 14.2, hemoglobin 11.6, and platelet count is normal. Chemistries are unremarkable except for an alkaline phosphatase of 144. Lactic acid 0.5. Troponin negative. Urinalysis shows pyuria. IMAGING STUDIES: X-ray of the chest obtained, which shows bilaterally. IMPRESSION: 1. Urinary tract infection. 2. Chronic obstructive pulmonary disease. 3. Liver cirrhosis. 4. Previous CVA. DISCUSSION: Agree with admission and care. The patient has been seen by Infectious Disease specialist and has been started on broad-spectrum antibiotics with which I concur. She is currently on Rocephin only. Await urine culture. Continue methadone. 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 Respiratory hygiene will be initiated. We will follow. Lexx Cortes M.D. DR: ANGELICA JOB#: [id number] CC:
[2019-12-05] MEDS: Albuterol ud Inhalation HHN PRN (23:44)
--- NOTE | 2019-12-05 23:45 | History and Physical Report ---
DATE OF ADMISSION: 12/04/2019 HISTORY OF PRESENT ILLNESS: The patient is admitted for pneumonia. The patient has fever and hypoxia, shortness of breath and productive cough at the shelter, and is admitted for pneumonia. The patient complains of shortness of breath as well, it has been going on for couple days. Denies nausea, vomiting, or diarrhea. Denies chills. PAST MEDICAL HISTORY: Significant for hypertension, COPD, history of GERD, history of CVA, and history of organic brain syndrome. History of peripheral neuropathy and CVA with right hemiplegia. Also, the patient has history of constipation, chronic pain syndrome, psychosis, depression, history of anemia, history of decubitus ulcers. PAST SURGICAL HISTORY: Denies. ALLERGIES: Erythromycin and clonidine. MEDICATIONS: Bisacodyl, Colace, Pepcid, gabapentin, multivitamin, sertraline, omeprazole, and Seroquel. FAMILY HISTORY: Noncontributory. SOCIAL HISTORY: Denies history of smoking, alcohol, or illicit drugs. Comes from a shelter. REVIEW OF SYSTEMS: HEENT: Denies headaches. RESPIRATORY: Reports shortness of breath and cough. Denies wheezing. CARDIOVASCULAR: Denies chest pain. GASTROINTESTINAL: Denies nausea, vomiting, or diarrhea. EXTREMITIES: Does have occasional lower extremities pain. CENTRAL NERVOUS SYSTEM: Denies changes in speech pattern. The patient is relatively a poor historian. PHYSICAL EXAMINATION: VITAL SIGNS: Temperature 97.9, pulse is 71, blood pressure 138/61. HEENT: PERRLA. NECK: Supple. CHEST: Bibasilar rhonchi. CARDIOVASCULAR: Regular rate and rhythm. GASTROINTESTINAL: Abdomen is soft, nontender. No organomegaly. EXTREMITIES: No edema. Reflexes in both sides. LABORATORY DATA: WBC of 14.3, hemoglobin is 11.6, platelets of 174,000. Sodium 136, potassium 3.4, BUN of 23, creatinine of 1, glucose of 85. ASSESSMENT AND PLAN: Pneumonia. I have asked Dr. Arcadio Gutierrez, Dr. Lexx Cortes to see the patient for the pneumonia. Antibiotics per Dr. Arcadio Gutierrez and monitor the patient, and I will give oxygen as needed and breathing treatment as needed. Geoffrey Whyte M.D. DR: J CARLOS JOB#: [id number] CC:
[2019-12-06] VITALS (7 sets, daily range): BP systolic 87–122; BP diastolic 50–69
[2019-12-06 05:41] LABS: ALANINE AMINOTRANSFERASE 7 U/L (12-78); ALBUMIN 1.2 G/DL (3.4-5.0); ALBUMIN/GLOBULIN RATIO 0.2 (1.0-2.7); ALKALINE PHOSPHATASE 132 U/L (46-116); AMYLASE 23 U/L (25-115); ANION GAP 9 mmol/L (5-15); ASPARTATE AMINO TRANSFERASE 25 U/L (15-37); BASOPHILS % (AUTO) 0.8 % (0.0-2.0); BILIRUBIN,TOTAL 0.2 MG/DL (0.2-1.0); BLOOD UREA NITROGEN 20 mg/dL (7-18); CALCIUM 8.2 MG/DL (8.5-10.1); CARBON DIOXIDE 23 MMOL/L (21-32); CHLORIDE 107 MMOL/L (98-107); CREATININE 1.1 MG/DL (0.55-1.30); EOSINOPHILS % (AUTO) 2.5 % (0.0-3.0); HEMATOCRIT 30.5 % (37.0-47.0); HEMOGLOBIN 9.7 G/DL (12.0-16.0); LYMPHOCYTES % (AUTO) 20.7 % (20.0-45.0); MEAN CORPUSCULAR VOLUME 87 FL (80-99); MONOCYTES % (AUTO) 5.3 % (1.0-10.0); NEUTROPHILS % (AUTO) 70.7 % (45.0-75.0); PLATELET COUNT 147 K/UL (150-450); POTASSIUM 3.2 MMOL/L (3.5-5.1); SODIUM 139 MMOL/L (136-145); WHITE BLOOD COUNT 6.2 K/UL (4.8-10.8)
[2019-12-06 05:45] LABS: INR 1.1 (0.9-1.1)
--- NOTE | 2019-12-06 07:11 | Pulmonology Progress Note ---
Assessment/Plan Assessment/Plan IMPRESSION: 1. Urinary tract infection. 2. Chronic obstructive pulmonary disease. 3. Liver cirrhosis. 4. Previous CVA. DISCUSSION: Continue broad-spectrum antibiotics. Await urine culture. Continue methadone. 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 Respiratory hygiene has been initiated. Lexx Cortes M.D. Subjective Interval Events: None new Constitutional: Reports: no symptoms HEENT: Repors: no symptoms Respiratory: Reports: no symptoms Cardiovascular: Reports: no symptoms Allergies: Coded Allergies: CLONIDINE (Verified Allergy, Unknown, 12/04/19) ERYTHROMYCIN BASE (Verified Allergy, Unknown, 12/04/19) Objective Last 24 Hour Vital Signs Date Time Temp Pulse Resp B/P (MAP) Pulse Ox O2 Delivery O2 Flow Rate FiO2 12/06/19 04:54 63 101/58 (72) 12/06/19 04:00 Nasal Cannula 2.0 12/06/19 04:00 98.0 72 16 98/62 (74) 98 12/06/19 04:00 2.0 12/06/19 03:32 82 12/06/19 01:39 97.9 12/06/19 00:00 97.9 60 16 92/63 (73) 98 12/06/19 00:00 Nasal Cannula 2.0 12/06/19 00:00 2.0 12/05/19 23:44 65 18 100 Nasal Cannula 2.0 28 64 18 97 12/05/19 23:28 57 12/05/19 20:37 74 18 93 Nasal Cannula 2.0 28 12/05/19 20:00 97.7 56 16 95/58 (70) 100 12/05/19 20:00 2.0 12/05/19 20:00 Nasal Cannula 2.0 12/05/19 19:31 62 12/05/19 16:00 97.7 60 21 88/44 (59) 97 12/05/19 16:00 Nasal Cannula 2.0 12/05/19 16:00 2.0 12/05/19 16:00 54 12/05/19 12:00 98.7 65 20 98/54 (69) 98 12/05/19 12:00 Nasal Cannula 2.0 12/05/19 12:00 54 12/05/19 12:00 2.0 12/05/19 08:21 72 18 97 Nasal Cannula 2.0 28 12/05/19 08:00 Nasal Cannula 2.0 12/05/19 08:00 2.0 12/05/19 08:00 73 12/05/19 08:00 98.3 70 21 93/56 (68) 97 Intake and Output 12/05/19 12/06/19 19:00 07:00 Intake Total 1100 ml Output Total 200 ml Balance 900 ml Intake Oral 1100 ml Output Urine Total 200 ml # Voids 4 General Appearance: no acute distress HEENT: normocephalic Respiratory/Chest: chest wall non-tender Cardiovascular: normal peripheral pulses Abdomen: normal bowel sounds Microbiology Date/Time Source Procedure Growth Status 12/04/19 14:25 Blood Blood Culture - Preliminary NO GROWTH AFTER 24 HOURS Resulted 12/04/19 14:25 Blood Blood Culture - Preliminary NO GROWTH AFTER 24 HOURS Resulted 12/04/19 13:45 Nasal Nares - Final Complete 12/04/19 13:45 Nasal Nares - Final Complete 12/04/19 14:49 Urine,Clean Catch Urine Culture - Preliminary Gram Negative Bacillus 1 Resulted 12/04/19 15:33 Rectum Received Laboratory Tests 12/06/19 04:45: White Blood Count 6.2, Red Blood Count 3.50L, Hemoglobin 9.7L, Hematocrit 30.5L , Mean Corpuscular Volume 87, Mean Corpuscular Hemoglobin 27.7, Mean Corpuscular Hemoglobin Concent 31.8L, Red Cell Distribution Width 15.0H, Platelet Count 147L, Mean Platelet Volume 6.7, Neutrophils (%) (Auto) 70.7, Lymphocytes (%) (Auto) 20.7, Monocytes (%) (Auto) 5.3, Eosinophils (%) (Auto) 2.5, Basophils (%) (Auto) 0.8, Erythrocyte Sedimentation Rate [Pending], Prothrombin Time 12.1H, Prothromb Time International Ratio 1.1, Activated Partial Thromboplast Time 31, Sodium Level 139, Potassium Level 3.2L, Chloride Level 107, Carbon Dioxide Level 23, Anion Gap 9, Blood Urea Nitrogen 20H, Creatinine 1.1, Estimat Glomerular Filtration Rate 48.8, Glucose Level 81, Calcium Level 8.2L, Total Bilirubin 0.2, Aspartate Amino Transf (AST/SGOT) 25, Alanine Aminotransferase (ALT/SGPT) 7L, Alkaline Phosphatase 132H, C-Reactive Protein, Quantitative 14.6H, Total Protein 6.3L, Albumin 1.2L, Globulin 5.1, Albumin/Globulin Ratio 0.2L, Amylase Level 23L, Lipase 89 Current Medications Medications (Trade) Dose Ordered Sig/Yogesh Route PRN Reason Start Time Stop Time Status Last Admin Dose Admin Acetaminophen (Tylenol) 650 mg Q6H PRN ORAL Pain Scale (3-5) 12/04/19 21:45 01/03/20 21:44 12/06/19 01:09 Albuterol Sulfate (Proventil) 2.5 mg Q4H PRN HHN Shortness of Breath 12/04/19 21:45 12/09/19 21:44 12/05/19 23:44 Bisacodyl (Dulcolax) 10 mg DAILYPRN PRN RECTAL Constipation 12/04/19 22:00 01/03/20 21:44 Ceftriaxone Sodium 2 gm/ Dextrose 55 ml @ 110 mls/hr Q24H IVPB 12/05/19 18:00 12/12/19 17:59 12/05/19 18:09 Famotidine (Pepcid) 20 mg BID ORAL 12/05/19 09:00 01/04/20 08:59 12/05/19 18:09 Gabapentin (Neurontin) 100 mg Q8HR ORAL 12/04/19 22:00 01/03/20 21:59 12/06/19 05:00 Lactulose (Cephulac) 20 gm Q6H PRN ORAL Constipation 12/04/19 21:45 01/03/20 21:44 Methadone HCl (Methadone HCl) 10 mg Q8HR ORAL 12/04/19 22:00 12/11/19 21:59 12/06/19 05:00 Multivitamins (Multivitamins) 1 tab DAILY ORAL 12/05/19 09:00 01/04/20 08:59 12/05/19 08:21 Nitroglycerin (Ntg) 0.4 mg Q5MIN X 3 DOSES PRN SL Prn Chest Pain 12/04/19 22:00 01/03/20 21:59 Sertraline HCl (Zoloft) 50 mg DAILY ORAL 12/05/19 09:00 01/04/20 08:59 12/05/19 08:20 Lexx Cortes MD Dec 06, 2019 07:11
[2019-12-06] MEDS: Sertraline 50mg tab ORAL SCH (08:40)
--- NOTE | 2019-12-06 09:17 | General Progress Note ---
Assessment/Plan Problem List: (1) Influenza-like symptoms ICD Codes: R68.89 - Other general symptoms and signs SNOMED: 221810692 (2) COPD (chronic obstructive pulmonary disease) ICD Codes: J44.9 - Chronic obstructive pulmonary disease, unspecified SNOMED: 30155278 Status: progressing Assessment/Plan: AFEBRILE low k.replace it resp insuff copd r/o pna cough present not hypoxic Subjective ROS Limited/Unobtainable: Yes Respiratory: Reports: cough, shortness of breath Allergies: Coded Allergies: CLONIDINE (Verified Allergy, Unknown, 12/04/19) ERYTHROMYCIN BASE (Verified Allergy, Unknown, 12/04/19) Objective Last 24 Hour Vital Signs Date Time Temp Pulse Resp B/P (MAP) Pulse Ox O2 Delivery O2 Flow Rate FiO2 12/06/19 07:44 70 12/06/19 04:54 63 101/58 (72) 12/06/19 04:00 Nasal Cannula 2.0 12/06/19 04:00 98.0 72 16 98/62 (74) 98 12/06/19 04:00 2.0 12/06/19 03:32 82 12/06/19 01:39 97.9 12/06/19 00:00 97.9 60 16 92/63 (73) 98 12/06/19 00:00 Nasal Cannula 2.0 12/06/19 00:00 2.0 12/05/19 23:44 65 18 100 Nasal Cannula 2.0 28 64 18 97 12/05/19 23:28 57 12/05/19 20:37 74 18 93 Nasal Cannula 2.0 28 12/05/19 20:00 97.7 56 16 95/58 (70) 100 12/05/19 20:00 2.0 12/05/19 20:00 Nasal Cannula 2.0 12/05/19 19:31 62 12/05/19 16:00 97.7 60 21 88/44 (59) 97 12/05/19 16:00 Nasal Cannula 2.0 12/05/19 16:00 2.0 12/05/19 16:00 54 12/05/19 12:00 98.7 65 20 98/54 (69) 98 12/05/19 12:00 Nasal Cannula 2.0 12/05/19 12:00 54 3/10/20 12:00 2.0 Intake and Output 12/05/19 12/06/19 19:00 07:00 Intake Total 1100 ml Output Total 200 ml Balance 900 ml Intake Oral 1100 ml Output Urine Total 200 ml # Voids 4 Laboratory Tests 12/06/19 04:45: White Blood Count 6.2, Red Blood Count 3.50L, Hemoglobin 9.7L, Hematocrit 30.5L , Mean Corpuscular Volume 87, Mean Corpuscular Hemoglobin 27.7, Mean Corpuscular Hemoglobin Concent 31.8L, Red Cell Distribution Width 15.0H, Platelet Count 147L, Mean Platelet Volume 6.7, Neutrophils (%) (Auto) 70.7, Lymphocytes (%) (Auto) 20.7, Monocytes (%) (Auto) 5.3, Eosinophils (%) (Auto) 2.5, Basophils (%) (Auto) 0.8, Erythrocyte Sedimentation Rate 79H, Prothrombin Time 12.1H, Prothromb Time International Ratio 1.1, Activated Partial Thromboplast Time 31, Sodium Level 139, Potassium Level 3.2L, Chloride Level 107 , Carbon Dioxide Level 23, Anion Gap 9, Blood Urea Nitrogen 20H, Creatinine 1.1 , Estimat Glomerular Filtration Rate 48.8, Glucose Level 81, Calcium Level 8.2L , Total Bilirubin 0.2, Aspartate Amino Transf (AST/SGOT) 25, Alanine Aminotransferase (ALT/SGPT) 7L, Alkaline Phosphatase 132H, C-Reactive Protein, Quantitative 14.6H, Total Protein 6.3L, Albumin 1.2L, Globulin 5.1, Albumin/ Globulin Ratio 0.2L, Amylase Level 23L, Lipase 89 Height (Feet): 5 Height (Inches): 4.00 Weight (Pounds): 141 Geoffrey Whyte MD Dec 06, 2019 09:17
--- NOTE | 2019-12-06 12:52 | Infectious Diseases Prog Note ---
Assessment/Plan Assessment/Plan IMPRESSION: Bacteremia COPD. E. coli UTI, Hepatitis C, Cirrhosis, major depression, history of drug abuse and nicotine dependence. RECOMMENDATION: Discontinue ceftriaxone. Start on Meropenem & Vancomycin Subjective ROS Limited/Unobtainable: Yes HEENT: Reports: no symptoms Respiratory: Reports: productive cough Cardiovascular: Reports: no symptoms Gastrointestinal/Abdominal: Reports: no symptoms Genitourinary: Reports: no symptoms Allergies: Coded Allergies: CLONIDINE (Verified Allergy, Unknown, 12/04/19) ERYTHROMYCIN BASE (Verified Allergy, Unknown, 12/04/19) Objective Vital Signs Last 24 Hour Vital Signs Date Time Temp Pulse Resp B/P (MAP) Pulse Ox O2 Delivery O2 Flow Rate FiO2 12/06/19 12:00 Nasal Cannula 2.0 12/06/19 12:00 2.0 12/06/19 08:00 Nasal Cannula 2.0 12/06/19 08:00 2.0 12/06/19 08:00 97.7 67 18 87/50 (62) 98 12/06/19 07:44 70 12/06/19 04:54 63 101/58 (72) 12/06/19 04:00 Nasal Cannula 2.0 12/06/19 04:00 98.0 72 16 98/62 (74) 98 12/06/19 04:00 2.0 12/06/19 03:32 82 12/06/19 01:39 97.9 12/06/19 00:00 97.9 60 16 92/63 (73) 98 12/06/19 00:00 Nasal Cannula 2.0 12/06/19 00:00 2.0 12/05/19 23:44 65 18 100 Nasal Cannula 2.0 28 64 18 97 12/05/19 23:28 57 12/05/19 20:37 74 18 93 Nasal Cannula 2.0 28 12/05/19 20:00 97.7 56 16 95/58 (70) 100 12/05/19 20:00 2.0 12/05/19 20:00 Nasal Cannula 2.0 12/05/19 19:31 62 12/05/19 16:00 97.7 60 21 88/44 (59) 97 12/05/19 16:00 Nasal Cannula 2.0 12/05/19 16:00 2.0 12/05/19 16:00 54 Height (Feet): 5 Height (Inches): 4.00 Weight (Pounds): 141 General Appearance: no acute distress HEENT: mucous membranes moist Respiratory/Chest: lungs clear Cardiovascular: normal rate Abdomen: soft, non tender Extremities: no edema Neurologic/Psychiatric: alert, responsive Musculoskeletal: atrophy Microbiology Date/Time Source Procedure Growth Status 12/04/19 14:25 Blood Blood Culture - Preliminary Resulted 12/04/19 14:25 Blood Blood Culture - Preliminary Resulted 12/04/19 15:33 Nasal Nares MRSA Culture - Final NO METHICILLIN RESISTANT STAPH AUREUS... Complete 12/04/19 13:45 Nasal Nares - Final Complete 12/04/19 13:45 Nasal Nares - Final Complete 12/04/19 14:49 Urine,Clean Catch Urine Culture - Final Escherichia Coli - Esbl Complete 12/04/19 15:33 Rectum Received Laboratory Tests Test 12/06/19 04:45 White Blood Count 6.2 K/UL (4.8-10.8) Red Blood Count 3.50 M/UL (4.20-5.40) L Hemoglobin 9.7 G/DL (12.0-16.0) L Hematocrit 30.5 % (37.0-47.0) L Mean Corpuscular Volume 87 FL (80-99) Mean Corpuscular Hemoglobin 27.7 PG (27.0-31.0) Mean Corpuscular Hemoglobin Concent 31.8 G/DL (32.0-36.0) L Red Cell Distribution Width 15.0 % (11.6-14.8) H Platelet Count 147 K/UL (150-450) L Mean Platelet Volume 6.7 FL (6.5-10.1) Neutrophils (%) (Auto) 70.7 % (45.0-75.0) Lymphocytes (%) (Auto) 20.7 % (20.0-45.0) Monocytes (%) (Auto) 5.3 % (1.0-10.0) Eosinophils (%) (Auto) 2.5 % (0.0-3.0) Basophils (%) (Auto) 0.8 % (0.0-2.0) Erythrocyte Sedimentation Rate 79 MM/HR (0-30) H Prothrombin Time 12.1 SEC (9.30-11.50) H Prothromb Time International Ratio 1.1 (0.9-1.1) Activated Partial Thromboplast Time 31 SEC (23-33) Sodium Level 139 MMOL/L (136-145) Potassium Level 3.2 MMOL/L (3.5-5.1) L Chloride Level 107 MMOL/L (98-107) Carbon Dioxide Level 23 MMOL/L (21-32) Anion Gap 9 mmol/L (5-15) Blood Urea Nitrogen 20 mg/dL (7-18) H Creatinine 1.1 MG/DL (0.55-1.30) Estimat Glomerular Filtration Rate 48.8 mL/min (>60) Glucose Level 81 MG/DL (74-106) Calcium Level 8.2 MG/DL (8.5-10.1) L Total Bilirubin 0.2 MG/DL (0.2-1.0) Aspartate Amino Transf (AST/SGOT) 25 U/L (15-37) Alanine Aminotransferase (ALT/SGPT) 7 U/L (12-78) L Alkaline Phosphatase 132 U/L (46-116) H C-Reactive Protein, Quantitative 14.6 mg/dL (0.00-0.90) H Total Protein 6.3 G/DL (6.4-8.2) L Albumin 1.2 G/DL (3.4-5.0) L Globulin 5.1 g/dL Albumin/Globulin Ratio 0.2 (1.0-2.7) L Amylase Level 23 U/L (25-115) L Lipase 89 U/L (73-393) Current Medications Medications (Trade) Dose Ordered Sig/Yogesh Route PRN Reason Start Time Stop Time Status Last Admin Dose Admin Acetaminophen (Tylenol) 650 mg Q6H PRN ORAL Pain Scale (3-5) 12/04/19 21:45 01/03/20 21:44 12/06/19 01:09 Albuterol Sulfate (Proventil) 2.5 mg Q4H PRN HHN Shortness of Breath 12/04/19 21:45 12/09/19 21:44 12/05/19 23:44 Bisacodyl (Dulcolax) 10 mg DAILYPRN PRN RECTAL Constipation 12/04/19 22:00 01/03/20 21:44 Ceftriaxone Sodium 2 gm/ Dextrose 55 ml @ 110 mls/hr Q24H IVPB 12/05/19 18:00 12/12/19 17:59 12/05/19 18:09 Famotidine (Pepcid) 20 mg BID ORAL 12/05/19 09:00 01/04/20 08:59 12/06/19 08:40 Gabapentin (Neurontin) 100 mg Q8HR ORAL 12/04/19 22:00 01/03/20 21:59 12/06/19 05:00 Lactulose (Cephulac) 20 gm Q6H PRN ORAL Constipation 12/04/19 21:45 01/03/20 21:44 Methadone HCl (Methadone HCl) 10 mg Q8HR ORAL 12/04/19 22:00 12/11/19 21:59 12/06/19 05:00 Multivitamins (Multivitamins) 1 tab DAILY ORAL 12/05/19 09:00 01/04/20 08:59 12/06/19 08:40 Nitroglycerin (Ntg) 0.4 mg Q5MIN X 3 DOSES PRN SL Prn Chest Pain 12/04/19 22:00 01/03/20 21:59 Potassium Chloride (K-Dur) 40 meq ONCE ORAL 12/06/19 12:00 12/06/19 13:30 Sertraline HCl (Zoloft) 50 mg DAILY ORAL 12/05/19 09:00 01/04/20 08:59 12/06/19 08:40 Arcadio Gutierrez MD Dec 06, 2019 12:52
[2019-12-06] MEDS ORDERED: NS 275ml ONE (14:50)
[2019-12-06] MEDS ORDERED: Tubing IV Secondary IV ONE (14:50)
--- NOTE | 2019-12-06 14:57 | Diagnostic Imaging Report ---
Indication: Shortness of breath Technique: One view of the chest Comparison: 12/04/2019 Findings: Lungs and pleural spaces are clear. The heart size is normal. There are degenerative changes of the right shoulder. Impression: No acute process
--- NOTE | 2019-12-06 15:30 | Surgery Progress Note ---
Surgery Progress Note Subjective Additional Comments no acute events comfortable labs noted i imaging reviewed Objective Last 24 Hour Vital Signs Date Time Temp Pulse Resp B/P (MAP) Pulse Ox O2 Delivery O2 Flow Rate FiO2 12/06/19 12:00 Nasal Cannula 2.0 12/06/19 12:00 97.5 67 19 98/57 (71) 98 12/06/19 12:00 2.0 12/06/19 11:43 59 12/06/19 08:00 Nasal Cannula 2.0 12/06/19 08:00 2.0 12/06/19 08:00 97.7 67 18 87/50 (62) 98 12/06/19 07:44 70 12/06/19 04:54 63 101/58 (72) 12/06/19 04:00 Nasal Cannula 2.0 12/06/19 04:00 98.0 72 16 98/62 (74) 98 12/06/19 04:00 2.0 12/06/19 03:32 82 12/06/19 01:39 97.9 12/06/19 00:00 97.9 60 16 92/63 (73) 98 12/06/19 00:00 Nasal Cannula 2.0 12/06/19 00:00 2.0 12/05/19 23:44 65 18 100 Nasal Cannula 2.0 28 64 18 97 12/05/19 23:28 57 12/05/19 20:37 74 18 93 Nasal Cannula 2.0 28 12/05/19 20:00 97.7 56 16 95/58 (70) 100 12/05/19 20:00 2.0 12/05/19 20:00 Nasal Cannula 2.0 12/05/19 19:31 62 12/05/19 16:00 97.7 60 21 88/44 (59) 97 12/05/19 16:00 Nasal Cannula 2.0 12/05/19 16:00 2.0 12/05/19 16:00 54 I&O Intake and Output 12/05/19 12/06/19 19:00 07:00 Intake Total 1100 ml Output Total 200 ml Balance 900 ml Intake Oral 1100 ml Output Urine Total 200 ml # Voids 4 Dressing: dry Wound: clean Cardiovascular: RSR Respiratory: clear Abdomen: soft, non-tender, present bowel sounds Extremities: no cyanosis, other Laboratory Tests Test 12/06/19 04:45 White Blood Count 6.2 K/UL (4.8-10.8) Red Blood Count 3.50 M/UL (4.20-5.40) L Hemoglobin 9.7 G/DL (12.0-16.0) L Hematocrit 30.5 % (37.0-47.0) L Mean Corpuscular Volume 87 FL (80-99) Mean Corpuscular Hemoglobin 27.7 PG (27.0-31.0) Mean Corpuscular Hemoglobin Concent 31.8 G/DL (32.0-36.0) L Red Cell Distribution Width 15.0 % (11.6-14.8) H Platelet Count 147 K/UL (150-450) L Mean Platelet Volume 6.7 FL (6.5-10.1) Neutrophils (%) (Auto) 70.7 % (45.0-75.0) Lymphocytes (%) (Auto) 20.7 % (20.0-45.0) Monocytes (%) (Auto) 5.3 % (1.0-10.0) Eosinophils (%) (Auto) 2.5 % (0.0-3.0) Basophils (%) (Auto) 0.8 % (0.0-2.0) Erythrocyte Sedimentation Rate 79 MM/HR (0-30) H Prothrombin Time 12.1 SEC (9.30-11.50) H Prothromb Time International Ratio 1.1 (0.9-1.1) Activated Partial Thromboplast Time 31 SEC (23-33) Sodium Level 139 MMOL/L (136-145) Potassium Level 3.2 MMOL/L (3.5-5.1) L Chloride Level 107 MMOL/L (98-107) Carbon Dioxide Level 23 MMOL/L (21-32) Anion Gap 9 mmol/L (5-15) Blood Urea Nitrogen 20 mg/dL (7-18) H Creatinine 1.1 MG/DL (0.55-1.30) Estimat Glomerular Filtration Rate 48.8 mL/min (>60) Glucose Level 81 MG/DL (74-106) Calcium Level 8.2 MG/DL (8.5-10.1) L Total Bilirubin 0.2 MG/DL (0.2-1.0) Aspartate Amino Transf (AST/SGOT) 25 U/L (15-37) Alanine Aminotransferase (ALT/SGPT) 7 U/L (12-78) L Alkaline Phosphatase 132 U/L (46-116) H C-Reactive Protein, Quantitative 14.6 mg/dL (0.00-0.90) H Total Protein 6.3 G/DL (6.4-8.2) L Albumin 1.2 G/DL (3.4-5.0) L Globulin 5.1 g/dL Albumin/Globulin Ratio 0.2 (1.0-2.7) L Amylase Level 23 U/L (25-115) L Lipase 89 U/L (73-393) Plan Problems: (1) Failure to thrive in adult (2) Malnutrition Assessment & Plan: Patient with significant malnutrition BMI of 19, albumin of 1.3. Patient with wasting identified. Nutritional input appreciated. Continue with diet as tolerated nutritional supplementation We will follow with recommendations (3) Leukocytosis Assessment & Plan: Patient with fever and leukocytosis. Hemodynamically stable otherwise. Chest x-ray noted. UA noted. Antibiotics as per infectious disease Leukocytosis trending down Infection unlikely from decubitus ulcer is no signs of active infection and chronic. We will follow with local care and recommendations thank you for let me participate patient's care (4) Abnormal LFTs Assessment & Plan: Elevated alk phos AST ALT otherwise normal T bili normal No jaundice Trend will monitor (5) Decubitus skin ulcer Assessment & Plan: Patient presented on admission with a stage III sacral decubitus ulcer at the sacral cleft just above the buttocks. Small area right at the midline cleft approximately 1 cm by few millimeters deep and wide. Some erythema periwound dry skin with sloughing breakdown mild deep tissue injury in the surrounding tissue no significant drainage no foul odor. Slow early breakdown identified and will do full precautions to ensure wound does not open up further and potentially heals as well prior to discharge. Apply skin protectant and surrounding areas, apply OPTi foam dressing change daily and. Saturation strict precautions for incontinence change and dress appropriately with each event. Air soft mattress, turn every 2 hours, offload pressure offload heels with pillows. Area of DTI identified in the heel apply bilateral heel protectors foam dressings thank you will follow with recommendations Cj Mccormick Dec 06, 2019 15:30
[2019-12-06] MEDS: Vancomycin 500mg/D5W 110ml IVPB SCH ×2 (16:49)
[2019-12-06] MEDS: Meropenem 500 MG in NS 55 ML IVPB SCH (18:02)
[2019-12-07] VITALS: BP 122/58
[2019-12-07] MEDS: Vancomycin 500mg/D5W 110ml IVPB SCH ×2 (03:12)
[2019-12-07 04:00] VITALS: BP 101/56
[2019-12-07] MEDS: Meropenem 500 MG in NS 55 ML IVPB SCH ×2 (04:06→17:33)
[2019-12-07 05:47] LABS: ANION GAP 6 mmol/L (5-15); BLOOD UREA NITROGEN 13 mg/dL (7-18); CARBON DIOXIDE 24 MMOL/L (21-32); CHLORIDE 109 MMOL/L (98-107); POTASSIUM 4.4 MMOL/L (3.5-5.1); SODIUM 139 MMOL/L (136-145)
[2019-12-07 08:00] VITALS: BP 101/61
[2019-12-07] MEDS: Sertraline 50mg tab ORAL SCH (08:54)
--- NOTE | 2019-12-07 10:55 | Pulmonology Progress Note ---
Assessment/Plan Assessment/Plan IMPRESSION: 1. Urinary tract infection. 2. Chronic obstructive pulmonary disease. 3. Liver cirrhosis. 4. Previous CVA. DISCUSSION: Continue broad-spectrum antibiotics. Await urine culture. Continue methadone. 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 Respiratory hygiene has been initiated. Lexx Cortes M.D. Subjective Interval Events: None new Constitutional: Reports: no symptoms HEENT: Repors: no symptoms Respiratory: Reports: no symptoms Cardiovascular: Reports: no symptoms Gastrointestinal/Abdominal: Reports: no symptoms Allergies: Coded Allergies: CLONIDINE (Verified Allergy, Unknown, 12/04/19) ERYTHROMYCIN BASE (Verified Allergy, Unknown, 12/04/19) Objective Last 24 Hour Vital Signs Date Time Temp Pulse Resp B/P (MAP) Pulse Ox O2 Delivery O2 Flow Rate FiO2 12/07/19 07:54 99 Nasal Cannula 2.0 28 12/07/19 07:54 71 18 97 Nasal Cannula 2.0 28 12/07/19 04:00 Nasal Cannula 2.0 12/07/19 04:00 98.2 63 16 101/56 (71) 96 12/07/19 04:00 2.0 12/07/19 03:37 59 12/07/19 00:00 2.0 12/07/19 00:00 Nasal Cannula 2.0 12/07/19 00:00 98.9 63 16 122/58 (79) 98 12/06/19 23:43 61 12/06/19 20:00 99.4 69 16 110/56 (74) 99 12/06/19 20:00 2.0 12/06/19 20:00 Nasal Cannula 2.0 12/06/19 19:19 71 18 97 Nasal Cannula 2.0 28 12/06/19 19:06 70 12/06/19 16:00 98.9 73 20 122/69 (86) 100 12/06/19 16:00 Nasal Cannula 2.0 12/06/19 16:00 60 12/06/19 16:00 2.0 12/06/19 12:00 Nasal Cannula 2.0 12/06/19 12:00 97.5 67 19 98/57 (71) 98 12/06/19 12:00 2.0 12/06/19 11:43 59 Intake and Output 12/06/19 12/07/19 19:00 07:00 Intake Total 665 ml 165 ml Balance 665 ml 165 ml Intake Oral 500 ml IV Total 165 ml 165 ml # Voids 3 4 General Appearance: no acute distress HEENT: normocephalic Respiratory/Chest: chest wall non-tender Cardiovascular: normal peripheral pulses Abdomen: normal bowel sounds Microbiology Date/Time Source Procedure Growth Status 12/04/19 14:25 Blood Blood Culture - Preliminary Staphylococcus Sp Coag Neg Resulted 12/04/19 14:25 Blood Blood Culture - Preliminary Staphylococcus Sp Coag Neg Resulted 12/04/19 15:33 Nasal Nares MRSA Culture - Final NO METHICILLIN RESISTANT STAPH AUREUS... Complete 12/04/19 13:45 Nasal Nares - Final Complete 12/04/19 13:45 Nasal Nares - Final Complete 12/04/19 14:49 Urine,Clean Catch Urine Culture - Final Escherichia Coli - Esbl Complete 12/04/19 15:33 Rectum - Final NO CARBAPENEM-RESISTANT ENTEROBACTERI... Complete 12/04/19 15:33 Rectum Received Laboratory Tests 12/07/19 04:50: Sodium Level 139, Potassium Level 4.4, Chloride Level 109H, Carbon Dioxide Level 24, Anion Gap 6, Blood Urea Nitrogen 13, Creatinine 1.0, Estimat Glomerular Filtration Rate 54.5, Glucose Level 66L, Calcium Level 8.0L Current Medications Medications (Trade) Dose Ordered Sig/Yogesh Route PRN Reason Start Time Stop Time Status Last Admin Dose Admin Acetaminophen (Tylenol) 650 mg Q6H PRN ORAL Pain Scale (3-5) 12/04/19 21:45 01/03/20 21:44 12/06/19 01:09 Albuterol Sulfate (Proventil) 2.5 mg Q4H PRN HHN Shortness of Breath 12/04/19 21:45 12/09/19 21:44 12/05/19 23:44 Bisacodyl (Dulcolax) 10 mg DAILYPRN PRN RECTAL Constipation 12/04/19 22:00 01/03/20 21:44 Famotidine (Pepcid) 20 mg BID ORAL 12/05/19 09:00 01/04/20 08:59 12/07/19 08:54 Gabapentin (Neurontin) 100 mg Q8HR ORAL 12/04/19 22:00 01/03/20 21:59 12/07/19 05:00 Lactulose (Cephulac) 20 gm Q6H PRN ORAL Constipation 12/04/19 21:45 01/03/20 21:44 Meropenem 500 mg/ Sodium Chloride 55 ml @ 110 mls/hr Q12HR@0500,1700 IVPB 12/06/19 17:00 12/11/19 16:59 12/07/19 04:06 Methadone HCl (Methadone HCl) 10 mg Q8HR ORAL 12/04/19 22:00 12/11/19 21:59 12/07/19 05:00 Multivitamins (Multivitamins) 1 tab DAILY ORAL 12/05/19 09:00 01/04/20 08:59 12/07/19 08:54 Nitroglycerin (Ntg) 0.4 mg Q5MIN X 3 DOSES PRN SL Prn Chest Pain 12/04/19 22:00 01/03/20 21:59 Sertraline HCl (Zoloft) 50 mg DAILY ORAL 12/05/19 09:00 01/04/20 08:59 12/07/19 08:54 Vancomycin HCl (Vanco rx to dose) 1 ea DAILY PRN MISC Per rx protocol 12/06/19 13:00 01/05/20 12:59 Vancomycin HCl 500 mg/Dextrose 110 ml @ 110 mls/hr Q12HR@0400,1600 IVPB 12/06/19 16:00 12/11/19 15:59 12/07/19 03:12 Lexx Cortes MD Dec 07, 2019 10:55
[2019-12-07 12:40] VITALS: BP 95/58
--- NOTE | 2019-12-07 12:53 | Infectious Diseases Prog Note ---
Assessment/Plan Assessment/Plan IMPRESSION: COPD. E. coli UTI, Hepatitis C, Positive blood culture likely contamination Cirrhosis, major depression, history of drug abuse and nicotine dependence. VRE carrier RECOMMENDATION: continue Meropenem Discontinue Vancomycin Subjective ROS Limited/Unobtainable: Yes Respiratory: Reports: no symptoms Gastrointestinal/Abdominal: Reports: no symptoms Genitourinary: Reports: no symptoms Allergies: Coded Allergies: CLONIDINE (Verified Allergy, Unknown, 12/04/19) ERYTHROMYCIN BASE (Verified Allergy, Unknown, 12/04/19) Objective Vital Signs Last 24 Hour Vital Signs Date Time Temp Pulse Resp B/P (MAP) Pulse Ox O2 Delivery O2 Flow Rate FiO2 12/07/19 08:00 Nasal Cannula 2.0 12/07/19 08:00 62 12/07/19 08:00 97.2 76 16 101/61 (74) 96 12/07/19 08:00 2.0 12/07/19 07:54 99 Nasal Cannula 2.0 28 12/07/19 07:54 71 18 97 Nasal Cannula 2.0 28 12/07/19 04:00 Nasal Cannula 2.0 12/07/19 04:00 98.2 63 16 101/56 (71) 96 12/07/19 04:00 2.0 12/07/19 03:37 59 12/07/19 00:00 2.0 12/07/19 00:00 Nasal Cannula 2.0 12/07/19 00:00 98.9 63 16 122/58 (79) 98 12/06/19 23:43 61 12/06/19 20:00 99.4 69 16 110/56 (74) 99 12/06/19 20:00 2.0 12/06/19 20:00 Nasal Cannula 2.0 12/06/19 19:19 71 18 97 Nasal Cannula 2.0 28 12/06/19 19:06 70 12/06/19 16:00 98.9 73 20 122/69 (86) 100 12/06/19 16:00 Nasal Cannula 2.0 12/06/19 16:00 60 12/06/19 16:00 2.0 Height (Feet): 5 Height (Inches): 4.00 Weight (Pounds): 141 General Appearance: no acute distress HEENT: mucous membranes moist Respiratory/Chest: lungs clear Cardiovascular: normal rate Abdomen: soft, non tender Extremities: no edema Neurologic/Psychiatric: alert, responsive Musculoskeletal: atrophy Microbiology Date/Time Source Procedure Growth Status 12/04/19 14:25 Blood Blood Culture - Preliminary Staphylococcus Sp Coag Neg Resulted 12/04/19 14:25 Blood Blood Culture - Preliminary Staphylococcus Sp Coag Neg Resulted 12/04/19 15:33 Nasal Nares MRSA Culture - Final NO METHICILLIN RESISTANT STAPH AUREUS... Complete 12/04/19 13:45 Nasal Nares - Final Complete 12/04/19 13:45 Nasal Nares - Final Complete 12/04/19 14:49 Urine,Clean Catch Urine Culture - Final Escherichia Coli - Esbl Complete 12/04/19 15:33 Rectum - Final NO CARBAPENEM-RESISTANT ENTEROBACTERI... Complete 12/04/19 15:33 Rectum VRE Culture - Final Enterococcus Faecalis - Vre Complete Laboratory Tests Test 12/07/19 04:50 Sodium Level 139 MMOL/L (136-145) Potassium Level 4.4 MMOL/L (3.5-5.1) Chloride Level 109 MMOL/L (98-107) H Carbon Dioxide Level 24 MMOL/L (21-32) Anion Gap 6 mmol/L (5-15) Blood Urea Nitrogen 13 mg/dL (7-18) Creatinine 1.0 MG/DL (0.55-1.30) Estimat Glomerular Filtration Rate 54.5 mL/min (>60) Glucose Level 66 MG/DL (74-106) L Calcium Level 8.0 MG/DL (8.5-10.1) L Current Medications Medications (Trade) Dose Ordered Sig/Yogesh Route PRN Reason Start Time Stop Time Status Last Admin Dose Admin Acetaminophen (Tylenol) 650 mg Q6H PRN ORAL Pain Scale (3-5) 12/04/19 21:45 01/03/20 21:44 12/06/19 01:09 Albuterol Sulfate (Proventil) 2.5 mg Q4H PRN HHN Shortness of Breath 12/04/19 21:45 12/09/19 21:44 12/05/19 23:44 Bisacodyl (Dulcolax) 10 mg DAILYPRN PRN RECTAL Constipation 12/04/19 22:00 01/03/20 21:44 Famotidine (Pepcid) 20 mg BID ORAL 12/05/19 09:00 01/04/20 08:59 12/07/19 08:54 Gabapentin (Neurontin) 100 mg Q8HR ORAL 12/04/19 22:00 01/03/20 21:59 12/07/19 05:00 Lactulose (Cephulac) 20 gm Q6H PRN ORAL Constipation 12/04/19 21:45 01/03/20 21:44 Meropenem 500 mg/ Sodium Chloride 55 ml @ 110 mls/hr Q12HR@0500,1700 IVPB 12/06/19 17:00 12/11/19 16:59 12/07/19 04:06 Methadone HCl (Methadone HCl) 10 mg Q8HR ORAL 12/04/19 22:00 12/11/19 21:59 12/07/19 05:00 Multivitamins (Multivitamins) 1 tab DAILY ORAL 12/05/19 09:00 01/04/20 08:59 12/07/19 08:54 Nitroglycerin (Ntg) 0.4 mg Q5MIN X 3 DOSES PRN SL Prn Chest Pain 12/04/19 22:00 01/03/20 21:59 Sertraline HCl (Zoloft) 50 mg DAILY ORAL 12/05/19 09:00 01/04/20 08:59 12/07/19 08:54 Vancomycin HCl (Vanco rx to dose) 1 ea DAILY PRN MISC Per rx protocol 12/06/19 13:00 01/05/20 12:59 Vancomycin HCl 500 mg/Dextrose 110 ml @ 110 mls/hr Q12HR@0400,1600 IVPB 12/06/19 16:00 12/11/19 15:59 12/07/19 03:12 Arcadio Gutierrez MD Dec 07, 2019 12:53
--- NOTE | 2019-12-07 15:30 | Surgery Progress Note ---
Surgery Progress Note Subjective Additional Comments no acute events comfortable labs noted exam stable leukocytosis resolved alk phos trending down Objective Last 24 Hour Vital Signs Date Time Temp Pulse Resp B/P (MAP) Pulse Ox O2 Delivery O2 Flow Rate FiO2 12/07/19 12:40 97.4 61 17 95/58 (70) 96 12/07/19 12:00 2.0 12/07/19 12:00 Nasal Cannula 2.0 12/07/19 11:48 57 12/07/19 08:00 Nasal Cannula 2.0 12/07/19 08:00 62 12/07/19 08:00 97.2 76 16 101/61 (74) 96 12/07/19 08:00 2.0 12/07/19 07:54 99 Nasal Cannula 2.0 28 12/07/19 07:54 71 18 97 Nasal Cannula 2.0 28 12/07/19 04:00 Nasal Cannula 2.0 12/07/19 04:00 98.2 63 16 101/56 (71) 96 12/07/19 04:00 2.0 12/07/19 03:37 59 12/07/19 00:00 2.0 12/07/19 00:00 Nasal Cannula 2.0 12/07/19 00:00 98.9 63 16 122/58 (79) 98 12/06/19 23:43 61 12/06/19 20:00 99.4 69 16 110/56 (74) 99 12/06/19 20:00 2.0 12/06/19 20:00 Nasal Cannula 2.0 12/06/19 19:19 71 18 97 Nasal Cannula 2.0 28 12/06/19 19:06 70 12/06/19 16:00 98.9 73 20 122/69 (86) 100 12/06/19 16:00 Nasal Cannula 2.0 12/06/19 16:00 60 12/06/19 16:00 2.0 I&O Intake and Output 12/06/19 12/07/19 19:00 07:00 Intake Total 665 ml 165 ml Balance 665 ml 165 ml Intake Oral 500 ml IV Total 165 ml 165 ml # Voids 3 4 Dressing: other Wound: other Drains: other Cardiovascular: RSR, other Respiratory: clear Abdomen: non-tender, present bowel sounds Extremities: no cyanosis Laboratory Tests Test 12/07/19 04:50 Sodium Level 139 MMOL/L (136-145) Potassium Level 4.4 MMOL/L (3.5-5.1) Chloride Level 109 MMOL/L (98-107) H Carbon Dioxide Level 24 MMOL/L (21-32) Anion Gap 6 mmol/L (5-15) Blood Urea Nitrogen 13 mg/dL (7-18) Creatinine 1.0 MG/DL (0.55-1.30) Estimat Glomerular Filtration Rate 54.5 mL/min (>60) Glucose Level 66 MG/DL (74-106) L Calcium Level 8.0 MG/DL (8.5-10.1) L Plan Problems: (1) Failure to thrive in adult (2) Malnutrition Assessment & Plan: Patient with significant malnutrition BMI of 19, albumin of 1.3. Patient with wasting identified. DAILY ESTIMATED NEEDS: Needs based on Wound/ 54.5kg 25-30 kcals/kg 9930-3838 total kcals 1.25-1.5 g protein/kg 68-81 g total protein 25-30 mL/kg 8827-8696 total fluid mLs NUTRITION DIAGNOSIS: * Increased kcal/prot needs R/T wound healing as evidenced by w/ sacral and BL heels wound per photos, pending eval. * Swallowing difficulty R/T dysphagia, h/o CVA as evidenced by pt on mech soft ground texture diet. CURRENT DIET:Regular, mech soft ground PO DIET RECOMMENDATIONS: REGULAR/ texture per SENIOR STATISTICAL PROGRAMMER ADDITIONAL RECOMMENDATIONS: * Calibrated bedsacle wt for accurate CBW- w/ added P200 mattress + SCDs * Monitor for continued good PO intake * Wound healing: Continue MVI x 1 Add Vit C 500mg QD Bravo BID as tolerated * Ensure Enilve x 1 to supplement nutritional intake (350kcal/20g prot) * Monitor lytes, replete as needed * SENIOR STATISTICAL PROGRAMMER eval for appropriate texture We will follow with recommendations (3) Leukocytosis Assessment & Plan: Patient with fever and leukocytosis. Hemodynamically stable otherwise. Chest x-ray noted. UA noted. Antibiotics as per infectious disease Leukocytosis trending down Infection unlikely from decubitus ulcer is no signs of active infection and chronic. We will follow with local care and recommendations thank you for let me participate patient's care (4) Abnormal LFTs Assessment & Plan: Elevated alk phos AST ALT otherwise normal T bili normal No jaundice Trend will monitor improving (5) Decubitus skin ulcer Assessment & Plan: Patient presented on admission with a stage III sacral decubitus ulcer at the sacral cleft just above the buttocks. Small area right at the midline cleft approximately 1 cm by few millimeters deep and wide. Some erythema periwound dry skin with sloughing breakdown mild deep tissue injury in the surrounding tissue no significant drainage no foul odor. Slow early breakdown identified and will do full precautions to ensure wound does not open up further and potentially heals as well prior to discharge. Apply skin protectant and surrounding areas, apply OPTi foam dressing change daily and. Saturation strict precautions for incontinence change and dress appropriately with each event. Air soft mattress, turn every 2 hours, offload pressure offload heels with pillows. Area of DTI identified in the heel apply bilateral heel protectors foam dressings thank you will follow with recommendations Cj Mccormick Dec 07, 2019 15:30
[2019-12-07 16:00] VITALS: BP 127/78
[2019-12-07 20:00] VITALS: BP 128/64
--- NOTE | 2019-12-07 20:52 | General Progress Note ---
Assessment/Plan Problem List: (1) Influenza-like symptoms ICD Codes: R68.89 - Other general symptoms and signs SNOMED: 200730606 (2) COPD (chronic obstructive pulmonary disease) ICD Codes: J44.9 - Chronic obstructive pulmonary disease, unspecified SNOMED: 96870904 Status: progressing Assessment/Plan: not hypoxic clinically is improving no wheezing low k.replace it resp insuff r/o pna Subjective ROS Limited/Unobtainable: Yes Allergies: Coded Allergies: CLONIDINE (Verified Allergy, Unknown, 12/04/19) ERYTHROMYCIN BASE (Verified Allergy, Unknown, 12/04/19) Objective Last 24 Hour Vital Signs Date Time Temp Pulse Resp B/P (MAP) Pulse Ox O2 Delivery O2 Flow Rate FiO2 12/07/19 16:00 Nasal Cannula 2.0 12/07/19 16:00 97.7 61 17 127/78 (94) 95 12/07/19 15:24 60 12/07/19 12:40 97.4 61 17 95/58 (70) 96 12/07/19 12:00 2.0 12/07/19 12:00 Nasal Cannula 2.0 12/07/19 11:48 57 12/07/19 08:00 Nasal Cannula 2.0 12/07/19 08:00 62 12/07/19 08:00 97.2 76 16 101/61 (74) 96 12/07/19 08:00 2.0 12/07/19 07:54 99 Nasal Cannula 2.0 28 12/07/19 07:54 71 18 97 Nasal Cannula 2.0 28 12/07/19 04:00 Nasal Cannula 2.0 12/07/19 04:00 98.2 63 16 101/56 (71) 96 12/07/19 04:00 2.0 12/07/19 03:37 59 12/07/19 00:00 2.0 12/07/19 00:00 Nasal Cannula 2.0 12/07/19 00:00 98.9 63 16 122/58 (79) 98 12/06/19 23:43 61 Intake and Output 12/06/19 12/07/19 19:00 07:00 Intake Total 665 ml 165 ml Balance 665 ml 165 ml Intake Oral 500 ml IV Total 165 ml 165 ml # Voids 3 4 Laboratory Tests 12/07/19 04:50: Sodium Level 139, Potassium Level 4.4, Chloride Level 109H, Carbon Dioxide Level 24, Anion Gap 6, Blood Urea Nitrogen 13, Creatinine 1.0, Estimat Glomerular Filtration Rate 54.5, Glucose Level 66L, Calcium Level 8.0L Height (Feet): 5 Height (Inches): 4.00 Weight (Pounds): 141 Neck: supple Cardiovascular: normal rate Respiratory/Chest: lungs clear Geoffrey Whyte MD Dec 07, 2019 20:52
--- NOTE | 2019-12-07 21:01 | Consultation ---
History of Present Illness General Chief Complaint: Flu Like Symptoms Present Illness Allergies: Coded Allergies: CLONIDINE (Verified Allergy, Unknown, 12/04/19) ERYTHROMYCIN BASE (Verified Allergy, Unknown, 12/04/19) Medication History Scheduled Docusate Sodium* (Docusate Sodium*), 100 MG ORAL ONCE, (Reported) Famotidine (Pepcid Ac), 20 MG PO BID, (Reported) Gabapentin* (Gabapentin*), 100 MG ORAL THREE TIMES A DAY, (Reported) Methadone Hcl* (Methadone*), 10 MG ORAL Q8HR, (Reported) Multivitamin With Minerals (Daily Vitamin Formula-Minerals), 1 TAB ORAL DAILY, ( Reported) Multivitamins* (Multivitamins*), 1 TAB ORAL DAILY, (Reported) Omeprazole (Omeprazole), 20 MG ORAL DAILY, (Reported) Quetiapine Fumarate (Seroquel), 12.5 MG ORAL DAILY, (Reported) Sertraline Hcl* (Zoloft*), 50 MG ORAL DAILY, (Reported) Scheduled PRN Acetaminophen* (Acetaminophen 325MG Tablet*), 650 MG ORAL Q6H PRN for Pain Scale (3-5), (Reported) Albuterol Sulfate* (Albuterol Sulfate Hhn*), 3 ML INH Q4H PRN for Shortness of Breath, (Reported) Bisacodyl (Bisacodyl), 10 MG RC for Constipation, (Reported) Nitroglycerin (Nitrostat), 0.4 MG SL Q5M X3 DOSES PRN for CHEST PAIN, (Reported) Miscellaneous Medications Cranberry Fruit Concentrate (Cranberry), 450 MG PO, (Reported) Lactulose (Lactulose), 60 ML PO, (Reported) Menthol/Zinc Oxide (Calmoseptine Ointment), 3.5 GM TP, (Reported) Patient History Healthcare decision maker no Resuscitation status Full Code Advanced Directive on File No Physical Exam Last 24 Hour Vital Signs Date Time Temp Pulse Resp B/P (MAP) Pulse Ox O2 Delivery O2 Flow Rate FiO2 12/07/19 16:00 Nasal Cannula 2.0 12/07/19 16:00 97.7 61 17 127/78 (94) 95 12/07/19 15:24 60 12/07/19 12:40 97.4 61 17 95/58 (70) 96 12/07/19 12:00 2.0 12/07/19 12:00 Nasal Cannula 2.0 12/07/19 11:48 57 12/07/19 08:00 Nasal Cannula 2.0 12/07/19 08:00 62 12/07/19 08:00 97.2 76 16 101/61 (74) 96 12/07/19 08:00 2.0 12/07/19 07:54 99 Nasal Cannula 2.0 28 12/07/19 07:54 71 18 97 Nasal Cannula 2.0 28 12/07/19 04:00 Nasal Cannula 2.0 12/07/19 04:00 98.2 63 16 101/56 (71) 96 12/07/19 04:00 2.0 12/07/19 03:37 59 12/07/19 00:00 2.0 12/07/19 00:00 Nasal Cannula 2.0 12/07/19 00:00 98.9 63 16 122/58 (79) 98 12/06/19 23:43 61 Intake and Output 12/06/19 12/07/19 19:00 07:00 Intake Total 665 ml 165 ml Balance 665 ml 165 ml Intake Oral 500 ml IV Total 165 ml 165 ml # Voids 3 4 Laboratory Tests Test 12/07/19 04:50 Sodium Level 139 MMOL/L (136-145) Potassium Level 4.4 MMOL/L (3.5-5.1) Chloride Level 109 MMOL/L (98-107) H Carbon Dioxide Level 24 MMOL/L (21-32) Anion Gap 6 mmol/L (5-15) Blood Urea Nitrogen 13 mg/dL (7-18) Creatinine 1.0 MG/DL (0.55-1.30) Estimat Glomerular Filtration Rate 54.5 mL/min (>60) Glucose Level 66 MG/DL (74-106) L Calcium Level 8.0 MG/DL (8.5-10.1) L Height (Feet): 5 Height (Inches): 4.00 Weight (Pounds): 141 Medications Current Medications Medications (Trade) Dose Ordered Sig/Yogesh Route PRN Reason Start Time Stop Time Status Last Admin Dose Admin Acetaminophen (Tylenol) 650 mg Q6H PRN ORAL Pain Scale (3-5) 12/04/19 21:45 01/03/20 21:44 12/06/19 01:09 Albuterol Sulfate (Proventil) 2.5 mg Q4H PRN HHN Shortness of Breath 12/04/19 21:45 12/09/19 21:44 12/05/19 23:44 Bisacodyl (Dulcolax) 10 mg DAILYPRN PRN RECTAL Constipation 12/04/19 22:00 01/03/20 21:44 Famotidine (Pepcid) 20 mg EVERY 12 HOURS ORAL 12/07/19 21:00 01/04/20 08:59 Gabapentin (Neurontin) 100 mg Q8HR ORAL 12/04/19 22:00 01/03/20 21:59 12/07/19 14:19 Lactulose (Cephulac) 20 gm Q6H PRN ORAL Constipation 12/04/19 21:45 01/03/20 21:44 Meropenem 500 mg/ Sodium Chloride 55 ml @ 110 mls/hr Q12HR@0500,1700 IVPB 12/06/19 17:00 12/11/19 16:59 12/07/19 17:33 Methadone HCl (Methadone HCl) 10 mg Q8HR ORAL 12/04/19 22:00 12/11/19 21:59 12/07/19 14:19 Multivitamins (Multivitamins) 1 tab DAILY ORAL 12/05/19 09:00 01/04/20 08:59 12/07/19 08:54 Nitroglycerin (Ntg) 0.4 mg Q5MIN X 3 DOSES PRN SL Prn Chest Pain 12/04/19 22:00 01/03/20 21:59 Sertraline HCl (Zoloft) 50 mg DAILY ORAL 12/05/19 09:00 01/04/20 08:59 12/07/19 08:54 Assessment/Plan Assessment/Plan: Hematology Consultation REQ : Geoffrey Gomez RFC: Ongoing pancytopenia DOS: 12/07/2019 HPI 74-year-old female history well known to me from a prior admission hx of stroke , COPD, cirrhosis, hepatitis C, presented for fever, cough and flulike symptoms. Patient presented from custodial facility. She has been sick for the past 2 - 3 days. Developed a fever today. Laboratory studies were done showed a white blood cell count of 16,000. No reported vomiting or diarrhea. Patient is a poor historian. Imaigng has been reviewed and heme has been consulted for further evaluation and rx. Allergies: CLONIDINE (Verified Allergy, Unknown, 12/04/19) ERYTHROMYCIN BASE (Verified Allergy, Unknown, 12/04/19) Patient History Past Medical History: see triage record Reviewed Nursing Documentation: PMH: Agreed; PSxH: Agreed Nursing Documentation-PMH Hx Cardiac Problems: Yes - hemiplegia Hx Hypertension: Yes Hx Pacemaker: No Hx Asthma: No Hx COPD: Yes Hx Diabetes: No Hx Cancer: No Hx Gastrointestinal Problems: Yes Hx Dialysis: No Hx Neurological Problems: Yes - Cognitive Communication Deficit Hx Cerebrovascular Accident: Yes Hx Transient Ischemic Attacks: No Hx Dementia: No Hx Alzheimer's Disease: No Hx Parkinson's Disease: No Hx Meningitis: No Hx Encephalitis: No Hx Seizures: No Hx Epilepsy: No Hx Multiple Sclerosis: No Hx Cerebral Palsy: No Hx Amyotrophic Lat Sclerosis: No Hx Guillian-[place] Syndrome: No Hx Paralysis: Yes - Right Hemiplegia Hx Peripheral Neuropathy: Yes - Right hemiparesis Hx Spinal Cord Injury: No Hx Head Trauma: No Hx Traumatic Brain Injury: No Hx Memory Loss: No Hx Concentration Difficulty: No Hx Speech Problem: No Hx Tremors: No Hx Vertigo: No Hx Dizziness: Yes - Unspecified lack of coordination Hx Syncope: Yes Hx Headaches: No Hx Dysphasia: No Hx Numbness: No Hx Weakness: Yes - Muscle weakness Hx Fatigue: No Hx Neurologic Surgery: No Hx Brain Shunt: No ROS (review of systems): Constitutional: No fever, no chills, no night sweats, no fatigue Skin: No rashes, lumps, itchiness, dryness HEENT: No [place], ear ache, visual changes, double vision, nosebleeds Breasts: No lumps, pain, discharge Pulmonary: No cough, sputum, shortness of breath, coughing up blood Cardiovascular: No chest pain, tightness, palpitations, syncope, PND GI: No nausea, vomiting, diarrhea, melena, hematochezia, change in appetite, : No dysuria, frequency, urgency, urinary incontinence, foamy urine Musculoskeletal: No joint swelling or muscle pain, trauma, back pain Neurologic: No dizziness, fainting, seizures, changes in smell or taste Psychiatric: No nervousness, stress, or depression, anxiety, hallucinations Endocrine: No weight change, heat or cold intolerance, tremor, insomnia Physical Exam: Vitals: reviewed General: NAD, confused+++ HEENT: nc, at Neck: supple Chest: clear breath sounds bilaterally Cardiovascular: RRR, no s3, s4 Abdomen: soft, nontender, nd Extremities: no cce, normal range of motion ++ rue contracted Neuro: alert and oriented Labs: noted Imaging: reviewed Assessment and Recs # Pancytopenia -- multiple etiologies could be related to underlying liver disease, medication-induced, infection versus viral syndrome DOES have HEPATITIS C++, cirrhosis of the liver --> peripheral smear has been ordered and does not show significant abnormalities --> Medications have been reviewed --> Continue to monitor for improvement, trend cbc --> Hep panel confirms Hep C+ --> US abd ordered to r/o cirrhosis and hepatosplenomegaly (to confirm it) --> consider other causes, infections that could contribute --> reverse isolation if ANC is <2000 --> Give neupogen if ANC <1000 --> Transfuse if hgb <7, with 1 unit prbc # Liver masses in the liver on PRIOR us --> consider ct scan to eval for malignancy --> afp has been ordered --> ct of the abd/pelvis with iv contrast once cr has improved --> likely will need outpatient eval as well if requires treatment # Anemia due to folic acid deficiency low levels --> folic acid started as per nephro # Laceration without foreign body of left eyelid and periocular area, initial encounter --> seen by neuro, no further recs # Upper extremity weakness --> likely due to weakness/neuro issues # Dehydration --> IVF have been started # UTI (urinary tract infection) --> on abx # IVDU hx --> currently off any # Hepatitis C per records --> with cirrhosis # Electrolyte abnormality as per nephro --> per renal recs The timing of this note does not necessarily reflect the time of the patient was seen. Greatly appreciate consultation! Barber Estrada MD Dec 07, 2019 21:01
[2019-12-08] VITALS: BP 114/62
[2019-12-08 04:00] VITALS: BP 112/70
[2019-12-08] MEDS: Meropenem 500 MG in NS 55 ML IVPB SCH (05:09)
--- NOTE | 2019-12-08 07:15 | Hematology/Onc Progress Note ---
Assessment/Plan Assessment/Plan Assessment and Recs # Pancytopenia -- multiple etiologies could be related to underlying liver disease, medication-induced, infection versus viral syndrome DOES have HEPATITIS C++, cirrhosis of the liver --> peripheral smear has been ordered and does not show significant abnormalities --> Medications have been reviewed --> Continue to monitor for improvement, trend cbc --> Hep panel confirms Hep C+ --> US abd ordered to r/o cirrhosis and hepatosplenomegaly (to confirm it) --> consider other causes, infections that could contribute --> reverse isolation if ANC is <2000 --> Give neupogen if ANC <1000 --> Transfuse if hgb <7, with 1 unit prbc # Liver masses in the liver on PRIOR us --> consider ct scan to eval for malignancy --> afp has been ordered --> ct of the abd/pelvis with iv contrast once cr has improved --> likely will need outpatient eval as well if requires treatment # Anemia due to folic acid deficiency low levels --> folic acid started as per nephro # Laceration without foreign body of left eyelid and periocular area, initial encounter --> seen by neuro, no further recs # Upper extremity weakness --> likely due to weakness/neuro issues # Dehydration --> IVF have been started # UTI (urinary tract infection) --> on abx # IVDU hx --> currently off any # Hepatitis C per records --> with cirrhosis # Electrolyte abnormality as per nephro --> per renal recs The timing of this note does not necessarily reflect the time of the patient was seen. Greatly appreciate consultation! Subjective Allergies: Coded Allergies: CLONIDINE (Verified Allergy, Unknown, 12/04/19) ERYTHROMYCIN BASE (Verified Allergy, Unknown, 12/04/19) Subjective 12/07: in sdu, no overnight events, cbc pending, [place], on [facility] Objective Objective Current Medications Medications (Trade) Dose Ordered Sig/Yogesh Route PRN Reason Start Time Stop Time Status Last Admin Dose Admin Acetaminophen (Tylenol) 650 mg Q6H PRN ORAL Pain Scale (3-5) 12/04/19 21:45 01/03/20 21:44 12/06/19 01:09 Albuterol Sulfate (Proventil) 2.5 mg Q4H PRN HHN Shortness of Breath 12/04/19 21:45 12/09/19 21:44 12/05/19 23:44 Bisacodyl (Dulcolax) 10 mg DAILYPRN PRN RECTAL Constipation 12/04/19 22:00 01/03/20 21:44 Famotidine (Pepcid) 20 mg EVERY 12 HOURS ORAL 12/07/19 21:00 01/04/20 08:59 12/07/19 21:07 Gabapentin (Neurontin) 100 mg Q8HR ORAL 12/04/19 22:00 01/03/20 21:59 12/08/19 05:09 Lactulose (Cephulac) 20 gm Q6H PRN ORAL Constipation 12/04/19 21:45 01/03/20 21:44 Meropenem 500 mg/ Sodium Chloride 55 ml @ 110 mls/hr Q12HR@0500,1700 IVPB 12/06/19 17:00 12/11/19 16:59 12/08/19 05:09 Methadone HCl (Methadone HCl) 10 mg Q8HR ORAL 12/04/19 22:00 12/11/19 21:59 12/08/19 05:09 Multivitamins (Multivitamins) 1 tab DAILY ORAL 12/05/19 09:00 01/04/20 08:59 12/07/19 08:54 Nitroglycerin (Ntg) 0.4 mg Q5MIN X 3 DOSES PRN SL Prn Chest Pain 12/04/19 22:00 01/03/20 21:59 Sertraline HCl (Zoloft) 50 mg DAILY ORAL 12/05/19 09:00 01/04/20 08:59 12/07/19 08:54 Last 24 Hour Vital Signs Date Time Temp Pulse Resp B/P (MAP) Pulse Ox O2 Delivery O2 Flow Rate FiO2 12/08/19 06:56 96 Nasal Cannula 2.0 28 12/08/19 06:56 67 16 96 Nasal Cannula 2.0 28 12/08/19 04:00 Nasal Cannula 2.0 12/08/19 04:00 98.0 63 20 112/70 (84) 98 12/08/19 03:32 52 12/08/19 00:00 97.7 80 20 114/62 (79) 97 12/08/19 00:00 Nasal Cannula 2.0 12/07/19 23:36 53 12/07/19 20:00 60 12/07/19 20:00 Nasal Cannula 2.0 12/07/19 20:00 98.0 82 18 128/64 (85) 99 12/07/19 16:00 Nasal Cannula 2.0 12/07/19 16:00 97.7 61 17 127/78 (94) 95 12/07/19 15:24 60 12/07/19 12:40 97.4 61 17 95/58 (70) 96 12/07/19 12:00 2.0 12/07/19 12:00 Nasal Cannula 2.0 12/07/19 11:48 57 12/07/19 08:00 Nasal Cannula 2.0 12/07/19 08:00 62 12/07/19 08:00 97.2 76 16 101/61 (74) 96 12/07/19 08:00 2.0 12/07/19 07:54 99 Nasal Cannula 2.0 28 12/07/19 07:54 71 18 97 Nasal Cannula 2.0 28 12/07/19 04:00 Nasal Cannula 2.0 12/07/19 04:00 98.2 63 16 101/56 (71) 96 12/07/19 04:00 2.0 12/07/19 03:37 59 12/07/19 00:00 2.0 12/07/19 00:00 Nasal Cannula 2.0 12/07/19 00:00 98.9 63 16 122/58 (79) 98 12/06/19 23:43 61 12/06/19 20:00 99.4 69 16 110/56 (74) 99 12/06/19 20:00 2.0 12/06/19 20:00 Nasal Cannula 2.0 12/06/19 19:19 71 18 97 Nasal Cannula 2.0 28 12/06/19 19:06 70 12/06/19 16:00 98.9 73 20 122/69 (86) 100 12/06/19 16:00 Nasal Cannula 2.0 12/06/19 16:00 60 12/06/19 16:00 2.0 12/06/19 12:00 Nasal Cannula 2.0 12/06/19 12:00 97.5 67 19 98/57 (71) 98 12/06/19 12:00 2.0 12/06/19 11:43 59 12/06/19 08:00 Nasal Cannula 2.0 12/06/19 08:00 2.0 12/06/19 08:00 97.7 67 18 87/50 (62) 98 12/06/19 07:44 70 Intake and Output 12/07/19 12/08/19 19:00 07:00 Intake Total 715 ml 255 ml Balance 715 ml 255 ml Intake Oral 660 ml 200 ml IV Total 55 ml 55 ml # Voids 3 6 Labs Test 12/06/19 04:45 12/07/19 04:50 12/08/19 03:17 White Blood Count 6.2 K/UL (4.8-10.8) Red Blood Count 3.50 M/UL (4.20-5.40) Hemoglobin 9.7 G/DL (12.0-16.0) Hematocrit 30.5 % (37.0-47.0) Mean Corpuscular Volume 87 FL (80-99) Mean Corpuscular Hemoglobin 27.7 PG (27.0-31.0) Mean Corpuscular Hemoglobin Concent 31.8 G/DL (32.0-36.0) Red Cell Distribution Width 15.0 % (11.6-14.8) Platelet Count 147 K/UL (150-450) Mean Platelet Volume 6.7 FL (6.5-10.1) Neutrophils (%) (Auto) 70.7 % (45.0-75.0) Lymphocytes (%) (Auto) 20.7 % (20.0-45.0) Monocytes (%) (Auto) 5.3 % (1.0-10.0) Eosinophils (%) (Auto) 2.5 % (0.0-3.0) Basophils (%) (Auto) 0.8 % (0.0-2.0) Erythrocyte Sedimentation Rate 79 MM/HR (0-30) Prothrombin Time 12.1 SEC (9.30-11.50) Prothromb Time International Ratio 1.1 (0.9-1.1) Activated Partial Thromboplast Time 31 SEC (23-33) Sodium Level 139 MMOL/L (136-145) 139 MMOL/L (136-145) Potassium Level 3.2 MMOL/L (3.5-5.1) 4.4 MMOL/L (3.5-5.1) Chloride Level 107 MMOL/L (98-107) 109 MMOL/L (98-107) Carbon Dioxide Level 23 MMOL/L (21-32) 24 MMOL/L (21-32) Anion Gap 9 mmol/L (5-15) 6 mmol/L (5-15) Blood Urea Nitrogen 20 mg/dL (7-18) 13 mg/dL (7-18) Creatinine 1.1 MG/DL (0.55-1.30) 1.0 MG/DL (0.55-1.30) Estimat Glomerular Filtration Rate 48.8 mL/min (>60) 54.5 mL/min (>60) Glucose Level 81 MG/DL (74-106) 66 MG/DL (74-106) Calcium Level 8.2 MG/DL (8.5-10.1) 8.0 MG/DL (8.5-10.1) Total Bilirubin 0.2 MG/DL (0.2-1.0) Aspartate Amino Transf (AST/SGOT) 25 U/L (15-37) Alanine Aminotransferase (ALT/SGPT) 7 U/L (12-78) Alkaline Phosphatase 132 U/L (46-116) C-Reactive Protein, Quantitative 14.6 mg/dL (0.00-0.90) Total Protein 6.3 G/DL (6.4-8.2) Albumin 1.2 G/DL (3.4-5.0) Globulin 5.1 g/dL Albumin/Globulin Ratio 0.2 (1.0-2.7) Amylase Level 23 U/L (25-115) Lipase 89 U/L (73-393) Height (Feet): 5 Height (Inches): 4.00 Weight (Pounds): 141 Objective Physical Exam: Vitals: reviewed General: NAD, confused+++ HEENT: nc, at Neck: supple Chest: clear breath sounds bilaterally Cardiovascular: RRR, no s3, s4 Abdomen: soft, nontender, nd Extremities: no cce, normal range of motion ++ rue contracted Neuro: alert and oriented Barber Estrada MD Dec 08, 2019 07:15
[2019-12-08 07:28] LABS: BASOPHILS % (AUTO) 0.5 % (0.0-2.0); EOSINOPHILS % (AUTO) 3.1 % (0.0-3.0); HEMATOCRIT 34.3 % (37.0-47.0); HEMOGLOBIN 10.9 G/DL (12.0-16.0); LYMPHOCYTES % (AUTO) 32.2 % (20.0-45.0); MEAN CORPUSCULAR VOLUME 88 FL (80-99); MONOCYTES % (AUTO) 5.5 % (1.0-10.0); NEUTROPHILS % (AUTO) 58.7 % (45.0-75.0); PLATELET COUNT 170 K/UL (150-450); RED BLOOD COUNT 3.92 M/UL (4.20-5.40); RED CELL DISTRIBUTION WIDTH 14.6 % (11.6-14.8); WHITE BLOOD COUNT 5.9 K/UL (4.8-10.8)
[2019-12-08 08:00] VITALS: BP 104/78
[2019-12-08] MEDS: Sertraline 50mg tab ORAL SCH (08:59)
--- NOTE | 2019-12-08 09:34 | Pulmonology Progress Note ---
Assessment/Plan Assessment/Plan IMPRESSION: 1. Urinary tract infection. 2. Chronic obstructive pulmonary disease. 3. Liver cirrhosis. 4. Previous CVA. DISCUSSION: Continue broad-spectrum antibiotics. Has E coli UTI Continue methadone. 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 Respiratory hygiene has been initiated. Lexx Cortes M.D. Subjective Interval Events: None new Constitutional: Reports: no symptoms HEENT: Repors: no symptoms Respiratory: Reports: no symptoms Cardiovascular: Reports: no symptoms Gastrointestinal/Abdominal: Reports: no symptoms Allergies: Coded Allergies: CLONIDINE (Verified Allergy, Unknown, 12/04/19) ERYTHROMYCIN BASE (Verified Allergy, Unknown, 12/04/19) Objective Last 24 Hour Vital Signs Date Time Temp Pulse Resp B/P (MAP) Pulse Ox O2 Delivery O2 Flow Rate FiO2 12/08/19 08:49 Nasal Cannula 2.0 12/08/19 08:00 97.0 64 20 104/78 (87) 98 12/08/19 06:56 96 Nasal Cannula 2.0 28 12/08/19 06:56 67 16 96 Nasal Cannula 2.0 28 12/08/19 04:00 Nasal Cannula 2.0 12/08/19 04:00 98.0 63 20 112/70 (84) 98 12/08/19 03:32 52 12/08/19 00:00 97.7 80 20 114/62 (79) 97 12/08/19 00:00 Nasal Cannula 2.0 12/07/19 23:36 53 12/07/19 20:00 60 12/07/19 20:00 Nasal Cannula 2.0 12/07/19 20:00 98.0 82 18 128/64 (85) 99 12/07/19 16:00 Nasal Cannula 2.0 12/07/19 16:00 97.7 61 17 127/78 (94) 95 12/07/19 15:24 60 12/07/19 12:40 97.4 61 17 95/58 (70) 96 12/07/19 12:00 2.0 12/07/19 12:00 Nasal Cannula 2.0 12/07/19 11:48 57 Intake and Output 12/07/19 12/08/19 19:00 07:00 Intake Total 715 ml 255 ml Balance 715 ml 255 ml Intake Oral 660 ml 200 ml IV Total 55 ml 55 ml # Voids 3 6 General Appearance: no acute distress HEENT: normocephalic Respiratory/Chest: chest wall non-tender Cardiovascular: normal peripheral pulses Abdomen: normal bowel sounds Laboratory Tests 12/08/19 03:17: White Blood Count 5.9, Red Blood Count 3.92L, Hemoglobin 10.9L, Hematocrit 34.3L , Mean Corpuscular Volume 88, Mean Corpuscular Hemoglobin 27.9, Mean Corpuscular Hemoglobin Concent 31.9L, Red Cell Distribution Width 14.6, Platelet Count 170, Mean Platelet Volume 6.9, Neutrophils (%) (Auto) 58.7, Lymphocytes (%) (Auto) 32.2, Monocytes (%) (Auto) 5.5, Eosinophils (%) (Auto) 3.1H, Basophils (%) (Auto) 0.5 Current Medications Medications (Trade) Dose Ordered Sig/Yogesh Route PRN Reason Start Time Stop Time Status Last Admin Dose Admin Acetaminophen (Tylenol) 650 mg Q6H PRN ORAL Pain Scale (3-5) 12/04/19 21:45 01/03/20 21:44 12/06/19 01:09 Albuterol Sulfate (Proventil) 2.5 mg Q4H PRN HHN Shortness of Breath 12/04/19 21:45 12/09/19 21:44 12/05/19 23:44 Bisacodyl (Dulcolax) 10 mg DAILYPRN PRN RECTAL Constipation 12/04/19 22:00 01/03/20 21:44 Famotidine (Pepcid) 20 mg EVERY 12 HOURS ORAL 12/07/19 21:00 01/04/20 08:59 12/08/19 09:00 Gabapentin (Neurontin) 100 mg Q8HR ORAL 12/04/19 22:00 01/03/20 21:59 12/08/19 05:09 Lactulose (Cephulac) 20 gm Q6H PRN ORAL Constipation 12/04/19 21:45 01/03/20 21:44 Meropenem 500 mg/ Sodium Chloride 55 ml @ 110 mls/hr Q12HR@0500,1700 IVPB 12/06/19 17:00 12/11/19 16:59 12/08/19 05:09 Methadone HCl (Methadone HCl) 10 mg Q8HR ORAL 12/04/19 22:00 12/11/19 21:59 12/08/19 05:09 Multivitamins (Multivitamins) 1 tab DAILY ORAL 12/05/19 09:00 01/04/20 08:59 12/08/19 08:59 Nitroglycerin (Ntg) 0.4 mg Q5MIN X 3 DOSES PRN SL Prn Chest Pain 12/04/19 22:00 01/03/20 21:59 Sertraline HCl (Zoloft) 50 mg DAILY ORAL 12/05/19 09:00 01/04/20 08:59 12/08/19 08:59 Lexx Cortes MD Dec 08, 2019 09:34
--- NOTE | 2019-12-08 10:53 | Diagnostic Imaging Report ---
Indication: Abdominal pain Technique: Grayscale and duplex Doppler imaging of the abdomen performed. Comparison: 02/14/2019 Findings: The liver is heterogeneous with surface nodularity. There is at least one hypoechoic mass identified in the left hepatic lobe near the dome measuring 1.9 cm. Further evaluation with contrast-enhanced CT is recommended. Doppler interrogation of the main portal vein shows patency with hepatopedal, monophasic flow. The CBD is dilated measuring 11 to 12 mm Gallbladder is unremarkable. Spleen is enlarged measuring 16 cm. There is a right pleural effusion. Trace free fluid also demonstrated in the right lower quadrant abdomen. Similar findings noted previously. There demonstrated part of the pancreas, aorta and IVC show no definite abnormalities. Nonobstructive stones demonstrated in the left kidney. Right kidney is unremarkable. There is no hydronephrosis. IMPRESSION: Cirrhosis/chronic liver disease. 1.9 cm mass noted in the left hepatic lobe. Further evaluation with contrast-enhanced CT is recommended. Splenomegaly. Right pleural effusion Dilated CBD although relatively stable. Nonobstructive stones in the left kidney.
--- NOTE | 2019-12-08 10:59 | Infectious Diseases Prog Note ---
Assessment/Plan Assessment/Plan IMPRESSION: COPD. E. coli UTI, Hepatitis C, Positive blood culture likely contamination Cirrhosis, major depression, history of drug abuse and nicotine dependence. VRE carrier RECOMMENDATION: continue Meropenem in hospital At time of discharge PO Nitrofurantoin 100mg BID X 4 days Case was D/W Primary MD Subjective ROS Limited/Unobtainable: No Respiratory: Reports: dry cough Cardiovascular: Reports: no symptoms Gastrointestinal/Abdominal: Reports: no symptoms Genitourinary: Reports: no symptoms Allergies: Coded Allergies: CLONIDINE (Verified Allergy, Unknown, 12/04/19) ERYTHROMYCIN BASE (Verified Allergy, Unknown, 12/04/19) Objective Vital Signs Last 24 Hour Vital Signs Date Time Temp Pulse Resp B/P (MAP) Pulse Ox O2 Delivery O2 Flow Rate FiO2 12/08/19 08:49 Nasal Cannula 2.0 12/08/19 08:00 73 12/08/19 08:00 97.0 64 20 104/78 (87) 98 12/08/19 06:56 96 Nasal Cannula 2.0 28 12/08/19 06:56 67 16 96 Nasal Cannula 2.0 28 12/08/19 04:00 Nasal Cannula 2.0 12/08/19 04:00 98.0 63 20 112/70 (84) 98 12/08/19 03:32 52 12/08/19 00:00 97.7 80 20 114/62 (79) 97 12/08/19 00:00 Nasal Cannula 2.0 12/07/19 23:36 53 12/07/19 20:00 60 12/07/19 20:00 Nasal Cannula 2.0 12/07/19 20:00 98.0 82 18 128/64 (85) 99 12/07/19 16:00 Nasal Cannula 2.0 12/07/19 16:00 97.7 61 17 127/78 (94) 95 12/07/19 15:24 60 12/07/19 12:40 97.4 61 17 95/58 (70) 96 12/07/19 12:00 2.0 12/07/19 12:00 Nasal Cannula 2.0 12/07/19 11:48 57 Height (Feet): 5 Height (Inches): 4.00 Weight (Pounds): 141 General Appearance: no acute distress HEENT: mucous membranes moist Respiratory/Chest: lungs clear Cardiovascular: normal rate Abdomen: soft, non tender Extremities: no edema, other - finger clubbing Neurologic/Psychiatric: alert, responsive Laboratory Tests Test 12/08/19 03:17 White Blood Count 5.9 K/UL (4.8-10.8) Red Blood Count 3.92 M/UL (4.20-5.40) L Hemoglobin 10.9 G/DL (12.0-16.0) L Hematocrit 34.3 % (37.0-47.0) L Mean Corpuscular Volume 88 FL (80-99) Mean Corpuscular Hemoglobin 27.9 PG (27.0-31.0) Mean Corpuscular Hemoglobin Concent 31.9 G/DL (32.0-36.0) L Red Cell Distribution Width 14.6 % (11.6-14.8) Platelet Count 170 K/UL (150-450) Mean Platelet Volume 6.9 FL (6.5-10.1) Neutrophils (%) (Auto) 58.7 % (45.0-75.0) Lymphocytes (%) (Auto) 32.2 % (20.0-45.0) Monocytes (%) (Auto) 5.5 % (1.0-10.0) Eosinophils (%) (Auto) 3.1 % (0.0-3.0) H Basophils (%) (Auto) 0.5 % (0.0-2.0) Current Medications Medications (Trade) Dose Ordered Sig/Yogesh Route PRN Reason Start Time Stop Time Status Last Admin Dose Admin Acetaminophen (Tylenol) 650 mg Q6H PRN ORAL Pain Scale (3-5) 12/04/19 21:45 01/03/20 21:44 12/06/19 01:09 Albuterol Sulfate (Proventil) 2.5 mg Q4H PRN HHN Shortness of Breath 12/04/19 21:45 12/09/19 21:44 12/05/19 23:44 Bisacodyl (Dulcolax) 10 mg DAILYPRN PRN RECTAL Constipation 12/04/19 22:00 01/03/20 21:44 Famotidine (Pepcid) 20 mg EVERY 12 HOURS ORAL 12/07/19 21:00 01/04/20 08:59 12/08/19 09:00 Gabapentin (Neurontin) 100 mg Q8HR ORAL 12/04/19 22:00 01/03/20 21:59 12/08/19 05:09 Lactulose (Cephulac) 20 gm Q6H PRN ORAL Constipation 12/04/19 21:45 01/03/20 21:44 Meropenem 500 mg/ Sodium Chloride 55 ml @ 110 mls/hr Q12HR@0500,1700 IVPB 12/06/19 17:00 12/11/19 16:59 12/08/19 05:09 Methadone HCl (Methadone HCl) 10 mg Q8HR ORAL 12/04/19 22:00 12/11/19 21:59 12/08/19 05:09 Multivitamins (Multivitamins) 1 tab DAILY ORAL 12/05/19 09:00 01/04/20 08:59 12/08/19 08:59 Nitroglycerin (Ntg) 0.4 mg Q5MIN X 3 DOSES PRN SL Prn Chest Pain 12/04/19 22:00 01/03/20 21:59 Sertraline HCl (Zoloft) 50 mg DAILY ORAL 12/05/19 09:00 01/04/20 08:59 12/08/19 08:59 Arcadio Gutierrez MD Dec 08, 2019 10:59
[2019-12-08] MEDS ORDERED: NS 275ml ONE (12:12)
[2019-12-08] MEDS ORDERED: Tubing IV Secondary IV ONE (12:12)
--- NOTE | 2019-12-08 12:26 | Surgery Progress Note ---
Surgery Progress Note Subjective Additional Comments improved d/c plan for today Objective Last 24 Hour Vital Signs Date Time Temp Pulse Resp B/P (MAP) Pulse Ox O2 Delivery O2 Flow Rate FiO2 12/08/19 08:49 Nasal Cannula 2.0 12/08/19 08:00 73 12/08/19 08:00 97.0 64 20 104/78 (87) 98 12/08/19 06:56 96 Nasal Cannula 2.0 28 12/08/19 06:56 67 16 96 Nasal Cannula 2.0 28 12/08/19 04:00 Nasal Cannula 2.0 12/08/19 04:00 98.0 63 20 112/70 (84) 98 12/08/19 03:32 52 12/08/19 00:00 97.7 80 20 114/62 (79) 97 12/08/19 00:00 Nasal Cannula 2.0 12/07/19 23:36 53 12/07/19 20:00 60 12/07/19 20:00 Nasal Cannula 2.0 12/07/19 20:00 98.0 82 18 128/64 (85) 99 12/07/19 16:00 Nasal Cannula 2.0 12/07/19 16:00 97.7 61 17 127/78 (94) 95 12/07/19 15:24 60 12/07/19 12:40 97.4 61 17 95/58 (70) 96 I&O Intake and Output 12/07/19 12/08/19 19:00 07:00 Intake Total 715 ml 255 ml Balance 715 ml 255 ml Intake Oral 660 ml 200 ml IV Total 55 ml 55 ml # Voids 3 6 Dressing: other Wound: other Drains: other Cardiovascular: RSR Respiratory: decreased breath sounds Abdomen: soft, present bowel sounds Extremities: no tenderness, no cyanosis Laboratory Tests Test 12/08/19 03:17 White Blood Count 5.9 K/UL (4.8-10.8) Red Blood Count 3.92 M/UL (4.20-5.40) L Hemoglobin 10.9 G/DL (12.0-16.0) L Hematocrit 34.3 % (37.0-47.0) L Mean Corpuscular Volume 88 FL (80-99) Mean Corpuscular Hemoglobin 27.9 PG (27.0-31.0) Mean Corpuscular Hemoglobin Concent 31.9 G/DL (32.0-36.0) L Red Cell Distribution Width 14.6 % (11.6-14.8) Platelet Count 170 K/UL (150-450) Mean Platelet Volume 6.9 FL (6.5-10.1) Neutrophils (%) (Auto) 58.7 % (45.0-75.0) Lymphocytes (%) (Auto) 32.2 % (20.0-45.0) Monocytes (%) (Auto) 5.5 % (1.0-10.0) Eosinophils (%) (Auto) 3.1 % (0.0-3.0) H Basophils (%) (Auto) 0.5 % (0.0-2.0) Plan Problems: (1) Failure to thrive in adult (2) Malnutrition Assessment & Plan: Patient with significant malnutrition BMI of 19, albumin of 1.3. Patient with wasting identified. DAILY ESTIMATED NEEDS: Needs based on Wound/ 54.5kg 25-30 kcals/kg 4702-5567 total kcals 1.25-1.5 g protein/kg 68-81 g total protein 25-30 mL/kg 3141-2479 total fluid mLs NUTRITION DIAGNOSIS: * Increased kcal/prot needs R/T wound healing as evidenced by w/ sacral and BL heels wound per photos, pending eval. * Swallowing difficulty R/T dysphagia, h/o CVA as evidenced by pt on [facility] soft ground texture diet. CURRENT DIET:Regular, mech soft ground PO DIET RECOMMENDATIONS: REGULAR/ texture per [employer] ADDITIONAL RECOMMENDATIONS: * Calibrated bedsacle wt for accurate CBW- w/ added P200 mattress + SCDs * Monitor for continued good PO intake * Wound healing: Continue MVI x 1 Add Vit C 500mg QD Bravo BID as tolerated * Ensure Enilve x 1 to supplement nutritional intake (350kcal/20g prot) * Monitor lytes, replete as needed * [employer] eval for appropriate texture We will follow with recommendations (3) Leukocytosis Assessment & Plan: Patient with fever and leukocytosis. Hemodynamically stable otherwise. Chest x-ray noted. UA noted. Antibiotics as per infectious disease Leukocytosis trending down Infection unlikely from decubitus ulcer is no signs of active infection and chronic. We will follow with local care and recommendations thank you for let me participate patient's care (4) Abnormal LFTs Assessment & Plan: Elevated alk phos AST ALT otherwise normal T bili normal No jaundice Trend will monitor improving (5) Decubitus skin ulcer Assessment & Plan: Patient presented on admission with a stage III sacral decubitus ulcer at the sacral cleft just above the buttocks. Small area right at the midline cleft approximately 1 cm by few millimeters deep and wide. Some erythema periwound dry skin with sloughing breakdown mild deep tissue injury in the surrounding tissue no significant drainage no foul odor. Slow early breakdown identified and will do full precautions to ensure wound does not open up further and potentially heals as well prior to discharge. Apply skin protectant and surrounding areas, apply OPTi foam dressing change daily and. Saturation strict precautions for incontinence change and dress appropriately with each event. Air soft mattress, turn every 2 hours, offload pressure offload heels with pillows. Area of DTI identified in the heel apply bilateral heel protectors foam dressings thank you will follow with recommendations Additional Comments late entry okay to d/c plan for above dressings changes upon d/c until healed wounds eveal prior to d/c with pictures. improved Cj Mccormick Dec 08, 2019 12:26
--- NOTE | 2019-12-10 12:47 | Discharge Summary ---
Discharge Summary Discharge Summary _ DATE OF ADMISSION: 12/04/2019 DATE OF DISCHARGE: 12/08/2019 DISCHARGED BY: Dr. Geoffrey Kaye CONSULTANTS: Dr. Cj Cortes BRIEF HOSPITAL COURSE: Patient is a 74-year-old female, from care home facility, with history of stroke, COPD, cirrhosis, hepatitis C, presented to ED for evaluation of fever, cough and flulike symptoms. Patient has been sick for the past 2 to 3 days. She developed fever. Laboratory studies were done and showed WBC count of 16, 000. There was no reported vomiting or diarrhea. Patient was sent to ED for further evaluation. Upon evaluation at ED, vital signs showed blood pressure 88/47, pulse rate 94, RR 20. Patient was afebrile. There was consideration for coronavirus infection. CDC was contacted. They recommended sepsis work-up and will follow- up on lab results to give recommendations on testing she was given IV hydration. White blood count was elevated to 14. Hemoglobin 11 and hematocrit 35. Electrolytes were normal. Urinalysis showed 3+ leukocyte esterase. Urine WBC too many to count, urine RBC 30-40. Chest x-ray did not show any findings of pneumonia. She was found to have pyelonephritis. She was given broad- spectrum antibiotics. CDC final recommendation was not at risk for Covid 19. She was then admitted for influenza-like symptoms and pyelonephritis. ID was consulted. Patient was given ceftriaxone. She was continued on methadone. Patient has a history of drug abuse and nicotine dependence. He was noted to have multiple decubitus ulcers requiring care and management. The patient had a stage III sacral decubitus ulcer at the sacral cleft just above the buttocks. She was given wound care. She was placed on air soft mattress with frequent repositioning and offloading. She was given heel protectors. The patient had malnutrition and failure to thrive. Nutrition optimized. The patient had an elevated alkaline phosphatase with normal AST and ALT. Bilirubin normal. There was no jaundice. Urine culture showed growth of E. coli. Blood culture was positive. Ceftriaxone was discontinued. She was given meropenem and vancomycin. Blood culture showed growth of Staphylococcus caprae possibly contaminant. Vancomycin discontinued. He was previously diagnosed with hepatitis C. He had previous pancytopenia, now resolved. He had a liver mass in a prior ultrasound recommended to have outpatient evaluation. Patient was cleared for discharge back to [facility], to continue nitrofurantoin 100 mg twice daily x4 days FINAL DIAGNOSES: E. coli ESBL UTI Malnutrition Elevated alkaline phosphatase Stage III sacral decubitus ulcer, present on admission COPD Hepatitis C Cirrhosis/liver mass Major depression History of drug and nicotine dependence VRE carrier Previous CVA Anemia due to folic acid deficiency DISPOSITION: DC back to SNF DISCHARGE MEDICATIONS: Refer to Discharge Medication List. I have been assigned to complete a discharge summary on this account, I was not involved with the patient's management.--FAUSTO Walker Jacqueline Robles NP Dec 10, 2019 12:47
== END 2019-12-08 12:13 | DRG 190 ==
LOC: EDUNIT# 12:50 → EDBD 12:50 → EMR 13:15 → 2W 14:53 → EDBEDREQ 15:20 → 2W 20:55
DX: J44.1 Chronic obstructive pulmonary disease with (acute) exacerbation (principal); L89.153 Pressure ulcer of sacral region, stage 3; N39.0 Urinary tract infection, site not specified; I69.351 Hemiplegia and hemiparesis following cerebral infarction affecting right dominant side; Z16.12 Extended spectrum beta lactamase (ESBL) resistance; D61.818 Other pancytopenia; E46 Unspecified protein-calorie malnutrition; Z68.1 Body mass index [BMI] 19.9 or less, adult; Z88.1 Allergy status to other antibiotic agents; Z88.8 Allergy status to other drugs, medicaments and biological substances; I10 Essential (primary) hypertension; K21.9 Gastro-esophageal reflux disease without esophagitis; G89.4 Chronic pain syndrome; B96.20 Unspecified Escherichia coli [E. coli] as the cause of diseases classified elsewhere; D52.9 Folate deficiency anemia, unspecified; Z86.19 Personal history of other infectious and parasitic diseases
CPT/HCPCS: 36415; 71045; 76700; 80048; 80053; 81003; 82150; 82550; 82553; 83605; 83690; 84484; 85025; 85610; 85651; 85730; 86140; 86710; 87040; 87081; 87086; 87181; 93005; 93970; 94640; 94664; 96361; 96365; 96367; 99285; J7030; J8499